=== PATIENT | male | born 1970 | race Caucasian/White ===

== ENCOUNTER 2016-10-24 12:07 | Inpatient (IN) | payer MEDICARE, MEDICAID ==
[~2016-10-24] VITALS: Ht 177.8 cm; Wt 107.1 kg
[2016-10-24] VITALS (14 sets, daily range): BP systolic 131–153; BP diastolic 76–85; PULSE 66–113; RESP 14–20; O2SAT 95–100
[~2016-10-24 12:07] MED LIST: ALBU8.5H2 INHALATION; AMLO5TAB2 PO; CIPR-231 PO; HYDR-4003 PO; LEVO150T5 PO; MORP100T36 PO
[2016-10-24] MEDS ORDERED: 0.9% Sodium Chloride 1,000 ML IV ONE (12:19)
--- NOTE | 2016-10-24 12:49 | ED.REPORT ---
HPI-Rash / Abscess Date of Service Oct 24, 2016 ED Provider: Ayan Puga PA-C Fred is a 45-year-old male who presents with a chief complaint of a left hip abscess. He states he first noticed it 3 days ago as worsened since then. Now he reports is quite painful and that "it feels like my testicles are being strangled." Reports pain and drainage in the thigh. Admits abdominal pain, vomiting, subjective fever. He has a long history of abscesses in this area which have been treated surgically previously in this facility, most recently in June of last year. History of IM heroin use. States he has been clean for 3 years. Patient reports last evening at 1730 yesterday and last drinking at 0200 this morning Nursing Notes Stated Complaint: LEFT THIGH ABSCESS Chief Complaint: Skin Rash/Abscess Nursing Notes Reviewed: Yes Allergies: Coded Allergies: Sulfa (Sulfonamide Antibiotics) (Verified Allergy, Intermediate, Rash, 03/31) STATES BLISTERS ON PENIS codeine (Verified Allergy, Mild, Rash,Itching,, 03/31/16) penicillin G (Verified Allergy, Unknown, Rash, 03/31/16) IN HIS YOUTH dalbavancin (Verified Adverse Reaction, Intermediate, Severe muscle spasms required discontinuation of infusion., 04/30/16) erythromycin base (Verified Adverse Reaction, Mild, Nausea, 03/31/16) Scheduled Amlodipine (Amlodipine) 5 Mg Tablet 5 MG PO DAILY Ciprofloxacin (Cipro) 500 Mg Tablet 750 MG PO BID Levothyroxine (Levothyroxine) 150 Mcg Tablet 150 MG PO DAILY Morphine Sulfate ER (Morphine Sulfate ER) 100 Mg Tablet 100 MG PO BID Scheduled PRN Albuterol HFA (Proair HFA) 8.5 Gm Hfa.aer.ad 2 PUFFS INHALATION Q4H PRN PRN For Shortness of Breath Hydrocodone-Acetaminophen 5-325 mg (Hydrocodone-Acetaminophen 5-325 mg) 1 Each Tablet 1 TABLET PO Q4H PRN PRN For Pain General Time Seen by MD: 12:17 Chief Complaint Abscess Past Medical History Past Medical History Hx IV drug use. Last use Dec 18 2015 Hypothyroid per patient- currently not receiving medication MSRA Reports: Diabetes mellitus Past Surgical History Abscess I&D in OR Reports: Tonsillectomy Smoking History Current Every Day Smoker Social History Alcohol Use: Denies alcohol use Drug Use: In recovery, IV drugs Other Social History: Poor social support, Local resident Ambulatory Status Independent Review of Systems Review of Systems Note: Negative unless stated otherwise in history of present illness Physical Exam General: Well appearing, well developed, well nourished, no acute distress. Foul smell. Head: Atraumatic, normocephalic. Eyes: No scleral icterus or injection. No discharge. Vision grossly intact. ENT: Voice clear, hearing grossly intact. Respiratory: Regular rate and rhythm. Breath sounds present, clear to auscultation and equal bilaterally. No respiratory distress. No increased work of breathing, speaks in complete sentences. Cardiovascular: Tachycardic with regular rhythm, without murmur, gallop or rub. No pedal edema. Gastrointestinal: Abdomen flat and non-tender without guarding or rebound. Bowel sounds normoactive. Skin: Large, draining abscess on left hip, 8 cm area of induration and tenderness on the right anterior distal thigh. 10 cm area of redness, tenderness and induration on right hip. 6 and regular area of redness tenderness and induration on the lateral left arm. 6 cm area of redness, tenderness, and induration on the lateral right arm. Bandaged, recently drained abscesses bilateral shoulders. Left leg: Swollen, red, warm from hip to foot. DP pulse 2+. Brisk capillary refill. Right leg: Swollen, red, warm from knee to foot. DP pulse 2+ Neurological: Grossly nonfocal. Psychological: Alert and oriented. Speech appropriate, linear and logical. Behavior appropriate. Initial Vital Signs Vital Signs (First) Date Time Temp Pulse Resp B/P Pulse Ox O2 Delivery O2 Flow Rate FiO2 10/24/16 12:10 35.8 113 20 137/82 100 Room Air Initial VS: Vital signs abnormal (tachycardia) Interpretation & Diagnostics Lab Results Interpretation Result Diagram: 10/24/16 1310 10/24/16 1310 Test 10/24/16 13:10 White Blood Count 15.7th/mm3 (3.8-10.1) Red Blood Count 3.93mil/mm3 (4.40-5.80) Hemoglobin 9.8g/dL (13.8-17.2) Hematocrit 31.4% (41.0-50.0) Mean Corpuscular Volume 79.9fL (81-100) Mean Corpuscular Hemoglobin 24.9pg (27.0-35.0) Mean Corpuscular Hemoglobin Concent 31.2% (32.0-37.0) Red Cell Distribution Width 15.5% (12.3-15.4) Platelet Count 215bil/L (150-400) Neutrophils (%) (Auto) 83.5% (40-74) Lymphocytes (%) (Auto) 9.9% (14-46) Monocytes (%) (Auto) 4.4% (4-12) Eosinophils (%) (Auto) 0.9% (0-5) Basophils (%) (Auto) 0.3% (0-3) Erythrocyte Sedimentation Rate 68mm/hr (0-15) Sodium Level 132mEq/L (134-144) Potassium Level 4.6mEq/L (3.5-5.2) Chloride Level 93mEq/L (97-108) Carbon Dioxide Level 24mmol/L (18-29) Blood Urea Nitrogen 13mg/dL (6-24) Creatinine 0.62mg/dL (0.76-1.27) Estimat Glomerular Filtration Rate 148mL/min (>59) Glucose Level 222mg/dL (60-99) Lactic Acid Level 1.5mmol/L (0.4-2.0) Calcium Level 9.0mg/dL (8.5-10.1) Total Bilirubin 0.2mg/dL (0.0-1.2) Aspartate Amino Transf (AST/SGOT) 9U/L (0-50) Alanine Aminotransferase (ALT/SGPT) 6U/L (0-44) Alkaline Phosphatase 81U/L (25-150) C-Reactive Protein 15.4mg/dL (0.0-0.5) Total Protein 6.6g/dL (6.4-8.4) Albumin 3.6g/dL (3.4-5.0) Re-Eval/Medical Decision Med Decision/Clinical Course Attending note: I saw and evaluated this patient. I agree with the documentation of our physician assistant editor. Patient has extensive left thigh cellulitis with probable underlying abscess and will require broad-spectrum antibiotics, admission and probable debridement in the OR. RUSH MDM: 45-year-old male with history of IM drug use and extensive abscesses presents with a left hip abscess. His first 3 days ago and has been worsening since then. Is quite painful now and draining purulent fluid. He also has many areas of tender induration on both legs and arms. Tachycardia is noted. Labs, blood cultures are drawn. IV is started and 1 L given. Patient is placed on vancomycin, clindamycin. Meropenem was added after review of previous culture results. CBC reveals leukocytosis with left shift as well as anemia. Lactic acid normal , ESR and CRP are elevated. Consulted with Dr. Godwin, who met with and examine the patient and agrees to take the patient to the OR for debridement. Asks that we admit under hospitalist service. Discussed the case with Dr. Lindquist, who accepted the patient. Consultation #1: Referral / Consult Name: Tal Godwin MD Consulted With: Surgeon Call Returned at: 13:13 Supervisor Accounts Receivable: Will see patient Consultation #2: Consulted With: Hospitalist Call Returned at: 15:06 Supervisor Accounts Receivable: Accepts admit Discharge & Departure Impression: Primary Impression: Abscess Additional Impression: Cellulitis Site of cellulitis: unspecified site Qualified Code: L03.90 - Cellulitis, unspecified Disposition: ADMITTED TO HOSPITAL Referrals: Collin Garcia MD (PCP) Attending Statement I have seen and examined the patient. I have reviewed the chart and agree with the documentation as recorded by the Midlevel Provider, including assessment, treatment plan, and disposition. Findings from my exam are included in documentation above. copies to: Collin Garcia MD, Seth PA-C Oct 24, 2016 12:49 George Torre DO Oct 24, 2016 14:57
[2016-10-24] MEDS ORDERED: Meropenem Inj 1,000 MG in 0.9% Sodium Chloride 100 ML IV ONE (12:55)
[2016-10-24] MEDS ORDERED: Vancomycin Dose per Pharmacist XX ONE (12:55)
[2016-10-24] MEDS ORDERED: Clindamycin Inj 900 MG in IV Premix 1 EACH IV ONE (12:55)
[2016-10-24] MEDS ORDERED: Ondansetron 2 mg/mL 2 mL Inj IVPUSH PRN ×4 (13:10→18:40)
[2016-10-24] MEDS ORDERED: 0.9% Sodium Chloride 1,000 ML IV SCH (13:10)
[2016-10-24] MEDS ORDERED: Vancomycin Inj 2,000 MG in 0.9% Sodium Chloride 500 ML IV ONE (13:15)
[2016-10-24] MEDS: HYDROmorphone 0.5 mg/0.5 mL iSecure Syringe IVPUSH PRN ×2 (13:25→14:22)
[2016-10-24 13:28] LABS: BASOPHILS % (AUTO) 0.3 % (0-3); EOSINOPHILS % (AUTO) 0.9 % (0-5); MONOCYTES % (AUTO) 4.4 % (4-12); Mean Corpuscular Hemoglobin 24.9 pg (27.0-35.0); Mean Corpuscular Volume 79.9 fL (81-100); NEUTROPHILS % (AUTO) 83.5 % (40-74); Platelet Count 215 bil/L (150-400)
--- NOTE | 2016-10-24 14:57 | DRSVH ---
PROCEDURE: CT LOWER EXTREMITY LEFT WITH CONTRAST INDICATIONS: left hip abscess, leg swelling TECHNIQUE: After the administration of intravenous contrast, 3 mm axial sections acquired of the left thigh, wit h coronal and sagittal reformats. For radiation dose reduction, the following was used: automated e xposure control, adjustment of mA and/or kV according to patient size. COMPARISON: [facility], CT, CT LOWER EXTREMITY LT W CON, 04/26/2016, 12:20. FINDINGS: Image quality: Diagnostic. Bones: There is no acute fracture or dislocation involving the osseous structures of the imaged pelvi s or left femur. Formerly of the proximal left femoral head/neck is suggestive of an old injury. Th ere is prominent joint space narrowing and associated degenerative changes of the femoral acetabular joint. No suspicious osseous lesions or erosions are identified. No periosteal elevation is appreci ated. Degenerative changes of the sacroiliac joints are noted. A subtle lucent lesion involving the right acetabulum is noted anteriorly, which is not adequately characterized on this examination, but demonstrates peripheral sclerosis, suggesting an intraosseous ganglion cyst. Soft tissues: Prominent skin thickening and subcutaneous edema is identified along the antral lateral aspect of the left thigh with edema noted involving the superficial fascia. No definite fluid or ed atif is seen extending into the deep fascial planes. There are areas of soft tissue air noted along t he proximal aspect of the left hip region with an associated collection of fluid that measures at patrice st 3.0 x 1.2 cm (image 33, series 2). Additional lobular structures are evident along the superficia l fascia of the anterolateral proximal left thigh just below this fluid collection, measuring 2.5 x 1 .4 cm (image 49, series 2). No definite intramuscular fluid collections are present. Incidental note is made of air and contrast contained within the right common femoral and external il iac vein, which probably is related to injection of contrast through the right lower extremity and cl inical correlation is recommended. Multiple enlarged lymph nodes are noted on the left iliac chain and in the left inguinal region with the largest lymph node measuring up to approximately 2.5 x 1.8 cm. Moderate residual stool is seen w ithin the pelvis. The imaged portions of the appendix are normal in size. No free fluid or loculate d fluid collection is seen within the intraperitoneal cavity. IMPRESSION: 1. Extensive subcutaneous and superficial fascial edema of the anterolateral aspect of the left thig h is suggestive of cellulitis. Small loculated fluid collections within the subcutaneous tissues are noted overlying the left hip region and upper thigh region, suggesting developing abscesses. No mus deepthi abscesses are evident. 2. No definite edema, air, or fluid is seen within the deep fascial planes to suggest fasciitis. Ho wever, correlation with clinical findings is recommended. 3. Enlarged left inguinal and iliac lymph nodes are likely reactive. Dictated by: Roberto Carlos Madrid M.D. on 10/24/2016 at 13:36 Approved by: Roberto Carlos Madrid M.D. on 10/24/2016 at 13:56
[2016-10-24] MEDS ORDERED: MetoCLOpramide 5 mg/mL 2 mL Inj ONE (15:02)
[2016-10-24] MEDS ORDERED: Propofol 10,000 mCg/mL 20 mL Inj ONE (15:02)
[2016-10-24] MEDS ORDERED: HYDROmorphone 2 mg/mL Inj ONE (15:02)
[2016-10-24] MEDS ORDERED: Ondansetron 2 mg/mL 2 mL Inj ONE (15:02)
[2016-10-24] MEDS ORDERED: fentaNYL-PF 50 mCg/mL 2 mL Inj ONE (15:02)
[2016-10-24] MEDS ORDERED: Alum-Mag Hydrox-Simeth 30 mL Suspension PO PRN ×2 (15:05→17:35)
--- NOTE | 2016-10-24 15:15 | CONS ---
[address] [address] CONSULTATION REPORT PATIENT: SINTIA OJEDA : 1970 MR#: [id number] ADMIT: 10/24/2016 JOB ID: [id number] DATE OF SERVICE: 10/24/2016 CONSULTATION REQUESTED BY: Ayan Puga PA-C. Patient seen for decision to operate. HISTORY OF PRESENT ILLNESS: A 45-year-old man with a stated past history of parenteral heroin abuse. States he is no longer using it but returns frequently with soft tissue abscesses. I was asked to see him for a left thigh and left upper extremity abscess. Again, the patient states that he stopped using heroin three years ago. He came to the emergency department because of increasing pain, primarily in his left thigh, but also admitted to pain in his left shoulder. PAST MEDICAL HISTORY: History of parenteral heroin use, question hypothyroid, question MRSA, question diabetes. REVIEW OF SYSTEMS: He changed his story, but at the last, he said he ate a few bites of a breakfast burrito at around 9:30 this morning. Also has had nausea, vomiting, and states he had a fever. PHYSICAL EXAMINATION: Appears older than stated age, a little somnolent. BMI 31.6, temperature 35.8, brachial blood pressure 137/82, pulse 113, respiratory rate 20, O2 sat is 100%. HEENT: PERRLA, EOMI. No scleral icterus. Neck: No appreciable masses. Lungs clear. Cardiac exam: Regular rhythm. No murmurs or gallops appreciated. Left upper extremity has erythema and an abscess on his left proximal lateral upper arm. Left lower extremity: Significant cellulitis and lateral proximal abscess. It is difficult to examine him because of pain. A CT scan has been ordered. LABORATORY RESULTS: White blood cell count 15.7, hematocrit 31.4, platelet count 215,000. Sodium 132, potassium 4.6, chloride 93. Total CO2 24, creatinine 0.62. Glucose 222. Lactic acid 1.5. Liver function tests normal. C. reactive protein 15.4. IMPRESSION: 1. Left upper extremity abscess. 2. Left lower extremity abscess. 3. History of parenteral drug abuse. 4. Diabetes. PLAN: I discussed options with the patient. He is scheduled for a CT scan, which I think will be helpful, but I also have scheduled him and obtained informed consent and written consent to take him to the operating room between 5:30 in 6:00 and incise and drain both abscesses. Cultures will be obtained. The patient has been through this before and definitely understands what is in front of them. He he has numerous emergency admissions for abscesses dating back to 2010.
[2016-10-24] MEDS ORDERED: HYDR-3740 PO (16:17)
--- NOTE | 2016-10-24 16:55 | NUR ---
Admit Pt admitted from ED to OSC unit, 1004 at 1555. Arrived via gurney and 4 person slide board transfer to bed. Oriented and answering appropriately, groggy, arousable but had difficulty obtaining past medical hx d/t his inability to stay awake for interview. Pain present, asking for medications. Pt with IV at Right foot with Vancomycin infusing, Moves upper extremities - limited to BLE L>R d/t abscess. Dressing present to left and right deltoid, 3-4mm round with minimal weeping - pt stated that he drained them himself. Left upper ant/lateral thigh swollen, tight, red and painful, lateral open and drainage abscess wound - purulent drainage. Attempted to place abd pad over top to catch drainage - too painful. Chucks pad underneath with glove filled with water to offsite weight on left side. Pt refused to turn d/t pain to both, remove sheets gurney sheets from underneath patient and have posterior skin assessment performed. IV sharps container removed. Personal belongings locked up in closet by security. Behavior contract in room but d/t pt inable to stay awake did not go over with pt. Pt with hx MRSA, MRSA swab sent and precautions placed. Med Rec completed per pt memory. Call light in reach. Sleepy. Awaiting surgery. Care continues.
[2016-10-24] MEDS ORDERED: Polyethylene Glycol (PEG) 17 Gm Powder PO PRN (17:35)
[2016-10-24] MEDS: Vancomycin Dose per Pharmacist XX SCH (17:40)
--- NOTE | 2016-10-24 18:26 | NUR ---
OR OR called and received report on pt prior to pickup. Vancomycin completed - IV SL to Right foot. Pt sleeping but able to arouse. Per ED report, consent signed - but no signed paperwork noted in chart. Pt last meal at 1000 per pt, remained NPO since arrival to unit. Await OR pickup. Addendum: 10/24/16 at 1911 by ROYAL GARRETT RN pt transported up to OR via bed at 1855
--- NOTE | 2016-10-24 18:35 | PCM.HPANE ---
Patient Data Surgeon Admitting Provider:Daija Márquez MD Attending Provider:Daija Márquez MD Primary Care Physician:Collin Garcia MD Other Provider: Reason for Visit Sepsis, Left Thigh Abscess Ht/WT & BMI Height (Feet): 5 Height (Inches): 10 Weight (Kilograms): 100 Body Mass Index Allergies Coded Allergies: Sulfa (Sulfonamide Antibiotics) (Verified Allergy, Intermediate, Rash, 03/31) STATES BLISTERS ON PENIS codeine (Verified Allergy, Mild, Rash,Itching,, 03/31/16) penicillin G (Verified Allergy, Unknown, Rash, 03/31/16) IN HIS YOUTH dalbavancin (Verified Adverse Reaction, Intermediate, Severe muscle spasms required discontinuation of infusion., 04/30/16) erythromycin base (Verified Adverse Reaction, Mild, Nausea, 03/31/16) Past Anesthesia History Anesthesia History: Denies:: Anesthesia Reactions, Fam Anesthesia Reaction, Fam Malignant Hypertherm, Malignant Hyperthermia Diabetes History Hx Diabetes?: Yes (prediabetic) MRSA MRSA: Yes Medications Active Scripts Amlodipine 5 Mg Tablet5 Mg PO DAILY 30 Days Prov:Guy Herrera DO 06/29/16 Reported Medications Hydrocodone-Acetaminophen 10-325 mg 1 Each Tablet1 Tablet PO Q6H PRN For Pain Ref 0 10/24/16 Albuterol HFA (Proair HFA)8.5 Gm Hfa.aer.ad2 Puffs INHALATION Q4H PRN For Shortness of Breath #1 INHALER 03/02/16 Levothyroxine 150 Mcg [id number] Mcg PO DAILY #90 03/02/16 Morphine Sulfate ER 100 Mg [id number] Mg PO BID #60 03/02/16 Discontinued Reported Medications Hydrocodone-Acetaminophen 5-325 mg 1 Each Tablet1 Tablet PO Q4H PRN For Pain 06/25/16 Discontinued Scripts Ciprofloxacin (Cipro)500 Mg [id number] Mg PO BID 10 Days Ref 0 Prov:Guy Herrera DO 06/29/16 History History of ENT Problems?: No Hx of Heart Problems?: Yes Cardiovascular History: Positive for:: Hypertension Denies:: Cardiac Surgery Chest Pain Congestive Heart Failure Edema Heart Murmur Irregular Heartbeat Pacemaker Thrombophlebitis Hx of Respiratory Problem?: Yes Respiratory History: Positive for:: Asthma Pneumonia Denies:: COPD Chest Surgery Dyspnea Emphysema Hemoptysis Tuberculosis Hx Neurologic Problems?: No Neurological History: Positive for:: Headaches Denies:: Alzheimer's Disease CVA Dementia Dizziness Parkinson's Disease Seizures Hx of GI Problems?: No Gastrointestinal History: Denies:: Diverticulitis Gastroesphageal Reflux Gastrointestinal Bleeding Heartburn Hepatitis Hiatal Hernia Rectal Bleeding Hx of Problems?: No Genitourinary History: Denies:: HX of Hemodialysis Kidney Stones Urinary Tract Infection HX of Peritoneal Dialysis: No Male Hx: Denies:: Prostate Problems Scrotal Mass Testicular Surgery Hx Musculoskeletal Problems?: No Musculoskeletal History: Denies:: Back Injury Joint Replacement Musculoskeletal Trauma Hx of Psycho/Social Problems?: Yes Psycho Social History: Positive for:: Anxiety Denies:: Bipolar Disorder Hx Depression Suicide Attempt Hx Surgeries?: Yes (tonsilectomy) Hx Any Other Health Problems?: Yes Other History: Positive for:: Hospitalization (I&D of abscesses) Thyroid Disease Denies:: Cancer Endocrine Disease History Blood Transfusions: Positive for:: Accept Blood Products? Denies:: Blood Transfuse Reaction Blood Transfusions Hx Diabetes: Yes (prediabetic) Hx Alcohol Use: NoHx Substance Use: Yes (Heroin/Amphetamines/Oxy/Meth/Opiates) Smoking Status: Current Every Day Smoker Have You Smoked inLast 12 mo: YesApprox How Many Cigarettes/day: 10 Stop/Bang Treated for Sleep Apnea?: No Do You Have a CPAP Machine?: No S-Snoring: Do You Snore Loudly: Yes T-Tired: feel tired, fatigued: No O-Obsered: Observed not breath: No P-Blood Pressure: treated: Yes B- Body Mass Index > 35 kg/m2: Yes A- Age over 50: No N- Neck Large Circumference: No G- Gender Male: Yes QASIM Total Score: 5 QASIM Risk Assessment: Low Risk, <3 Yes Risk Assessment Category Category 1A: Patient has history of documented sleep apnea, and HAS NOT received any narcotic, sedative or anesthesia administration during this stay. Category 1B: Patient has history of documented sleep apnea, and HAS received any narcotic , sedative or anesthesia administration during this stay Category 2: Patient has SUSPECTED Obstructive Sleep Apnea, and HAS received any narcotic , sedative or anesthesia administration during this stay. Category 3: Patient has SUSPECTED Obstructive Sleep Apnea and HAS NOT received narcotic, sedative or anesthesia administration during this stay. Category 4: Outpatient in Procedural Areas with known sleep apnea or who screen positive for High Risk via the STOP/BANG questionnaire. Exam Exam Vital Signs Vital Signs Date Time Temp Pulse Resp B/P Pulse Ox O2 Delivery O2 Flow Rate FiO2 10/24/16 16:16 36.8 93 19 131/76 100 Room Air 10/24/16 15:47 36.8 87 18 132/78 100 Room Air 10/24/16 14:26 36.7 87 18 132/78 100 Room Air 10/24/16 12:10 35.8 113 20 137/82 100 Room Air General Appearance: Oriented X3 HEENT/AIRWAY: MP 2 Lungs: Normal Air Movement Heart: Regular Rate/Rhythm Meds/Labs/Diagnostics Admission Meds Current Medications Sodium Chloride (Normal Saline) 1,000 ml @ 0 mls/hr Q0M ONCE IV Last administered on 10/24/16 13:12; Start 10/24/16 at 12:19; Stop 10/24/16 at 12:23; Status DC Pharmacy Consult 1 ea 1 ea ONCE ONCE XX Last administered on 10/24/16 12:55; Start 10/24/16 at 12:55; Stop 10/24/16 at 13:12; Status DC Clindamycin Phosphate/ Dextrose 900 mg/ Premix 50 ml @ 100 mls/hr ONCE ONCE IV Last administered on 10/24/16 13:24; Start 10/24/16 at 12:55; Stop 10/24/16 at 13:24; Status DC Meropenem 1000 mg/ Sodium Chloride 100 ml @ 200 mls/hr ONCE ONCE IV Last administered on 10/24/16 12:55; Start 10/24/16 at 12:55; Stop 10/24/16 at 13:24; Status DC Vancomycin HCl/ Sodium Chloride (Vancocin Inj/ Normal Saline) 500 ml @ 250 mls/ hr ONCE ONCE IV Last administered on 10/24/16 15:40; Start 10/24/16 at 13:15; Stop 10/24/16 at 15:14; Status DC Labs Test 10/24/16 13:10 White Blood Count 15.7th/mm3 (3.8-10.1) Red Blood Count 3.93mil/mm3 (4.40-5.80) Hemoglobin 9.8g/dL (13.8-17.2) Hematocrit 31.4% (41.0-50.0) Mean Corpuscular Volume 79.9fL (81-100) Mean Corpuscular Hemoglobin 24.9pg (27.0-35.0) Mean Corpuscular Hemoglobin Concent 31.2% (32.0-37.0) Red Cell Distribution Width 15.5% (12.3-15.4) Platelet Count 215bil/L (150-400) Neutrophils (%) (Auto) 83.5% (40-74) Lymphocytes (%) (Auto) 9.9% (14-46) Monocytes (%) (Auto) 4.4% (4-12) Eosinophils (%) (Auto) 0.9% (0-5) Basophils (%) (Auto) 0.3% (0-3) Erythrocyte Sedimentation Rate 68mm/hr (0-15) Sodium Level 132mEq/L (134-144) Potassium Level 4.6mEq/L (3.5-5.2) Chloride Level 93mEq/L (97-108) Carbon Dioxide Level 24mmol/L (18-29) Blood Urea Nitrogen 13mg/dL (6-24) Creatinine 0.62mg/dL (0.76-1.27) Estimat Glomerular Filtration Rate 148mL/min (>59) Glucose Level 222mg/dL (60-99) Lactic Acid Level 1.5mmol/L (0.4-2.0) Calcium Level 9.0mg/dL (8.5-10.1) Total Bilirubin 0.2mg/dL (0.0-1.2) Aspartate Amino Transf (AST/SGOT) 9U/L (0-50) Alanine Aminotransferase (ALT/SGPT) 6U/L (0-44) Alkaline Phosphatase 81U/L (25-150) C-Reactive Protein 15.4mg/dL (0.0-0.5) Total Protein 6.6g/dL (6.4-8.4) Albumin 3.6g/dL (3.4-5.0) Thyroid Stimulating Hormone (TSH) 5.640uIU/mL (0.450-4.500) Free Thyroxine 1.01ng/dL (0.82-1.77) Plan Impression Patient chart reviewed, patient interviewed and anesthestic plan with risks, benefits, and alternatives discussed, and informed consent obtained. NPO Status: 0800 ASA Physical Status: ASA3 Severe Disease Anesthetic Plan: GA Bene/Risks/Altern/Consents: Yes HP Complete Prior to Induction: Yes Baljit Kirkland MD Oct 24, 2016 18:35
[2016-10-24] MEDS ORDERED: Lactated Ringer's 500 ML IV PRN (18:36)
[2016-10-24] MEDS ORDERED: Lactated Ringer's 1,000 ML IV SCH (18:36)
--- NOTE | 2016-10-24 18:36 | HP ---
[address] [address] HISTORY AND PHYSICAL PATIENT: SINTIA OJEDA : 1970 MR#: [id number] ADMIT: 10/24/2016 JOB ID: [id number] PRIMARY CARE PROVIDER: Dr. Collin Garcia in [place]. Patient admitted from ED, inpatient status, Blue Team. CHIEF COMPLAINT: Pain, redness, left thigh, for three days. HISTORY OF PRESENT ILLNESS: This is a 45-year-old male who has recurrent admissions for different abscesses with different organisms in different parts of his body, highly suspicious for ongoing skin popping for narcotics. However, patient denies using any needles for a year or two at this point in time. He was last here in June. He has been doing pretty well but then noticed redness and swelling in his left thigh area starting three days ago which got progressively worse. He also has two areas on both of his upper shoulders/arms area. Presented to the ED. His CAT scan shows developing abscesses in the thigh. No evidence of fasciitis, and Surgery has asked us to admit patient. He has had some fevers. He has pain and again denies any instrumentation injection to those areas. He has had no headache. Denies fevers or diaphoresis. No nausea or diarrhea REVIEW OF SYSTEMS: Complete review of systems done, all pertinent positives in HPI above, rest of review of systems are negative. PAST MEDICAL HISTORY: 1. IV drug abuse, which he now denies current. 2. Hypothyroidism. 3. Prediabetes. 4. Chronic pain. 5. Hypertension. 6. Asthma/COPD. MEDICATIONS: Include: 1. ProAir two puffs q.4 p.r.n. 2. Hydrocodone 10/325 p.r.n. 3. Morphine sulfate [address] Garcia apparently prescribes. 4. Levothyroxine 150 mcg daily. ALLERGIES: Include 1. SULFA. 2. CODEINE. 3. PENICILLIN G. 4. DALBAVANCIN. 5. ERYTHROMYCIN. SOCIAL HISTORY: The patient says he stopped using IV heroin in November 2015. Denies alcohol. He does smoke. He uses cocaine and meth and marijuana also in the past. Smokes every day. FAMILY HISTORY: Mother with heart and kidney disease. Rest of review of the family is unknown at this time. PHYSICAL EXAMINATION: Afebrile, heart rate 93, blood pressure 130/75. Skin shows a swollen left thigh, with some redness extending just below the belt line to above the knee laterally. Just below the greater trochanteric area, there is a black area, 1 cm across, with some brownish, purulent-appearing discharge. On both upper arms, over the deltoid muscle area, he has two small infections, a little bit of redness also associated with a 4 mm scab, both draining a little bit of purulent-appearing material. This is on both arms. His eyes are PERRLA. EOM intact. Mouth shows adequate hydration. His cardiac exam is regular with no overt murmur. Lungs: A few scattered wheezes but otherwise clear. Abdomen soft, nonacute, benign. Extremities showed no edema. DIAGNOSES: 1. Acute left thigh abscess. Present on admission. Active. CAT scan showed no evidence of fasciitis. Surgery is already seeing patient. Will continue with meropenem and IV vancomycin and obtain an ID consult, also. We will be treating all three wounds, both arms and legs. Repeat CBC, diff tomorrow. 2. Pain management. This will be with a HOUSECLEANER, opioid tolerant patient. 3. Possible ongoing IV drug abuse, present on admission suspect. Will talk to Social Service. 4. Chronic hypothyroidism, present on admission. Stable. Continue levothyroxine. Get thyroid function tests. 5. Chronic hypertension present on admission. Stable. Continue Norvasc. Monitor. 6. Chronic pain present on admission. Stable. Will be holding patient's oral morphine while he is on a HOUSECLEANER. 7. Tobacco use disorder, present on admission, active. Provide a nicotine patch. Patient was counseled to quit smoking. CODE STATUS: FULL CODE. Code sheet filled out.
[2016-10-24] MEDS ORDERED: EPHEDrine Sulfate 50 mg/mL Inj IVPUSH PRN (18:40)
[2016-10-24] MEDS ORDERED: Phenylephrine 10,000 mCg/mL Inj IVPUSH PRN (18:40)
[2016-10-24] MEDS ORDERED: MetoCLOpramide 5 mg/mL 2 mL Inj IVPUSH PRN (18:40)
[2016-10-24] MEDS ORDERED: Dexamethasone 4 mg/mL Inj IVPUSH PRN (18:40)
[2016-10-24] MEDS ORDERED: Lactated Ringer's 1,000 ML IV ONE (18:46)
[2016-10-24] MEDS ORDERED: Albuterol 2.5 mg/3 mL Inhalation Solution NEB PRN (20:00)
[2016-10-24] MEDS: HYDROmorphone 1 mg/mL Inj IVPUSH PRN ×2 (20:00→20:04)
[2016-10-24] MEDS: fentaNYL-PF 50 mCg/mL 2 mL Inj IVPUSH PRN ×2 (20:01→20:07)
--- NOTE | 2016-10-24 20:01 | PCM.CONPHA ---
Subjective Date of Service: Oct 24, 2016 VANCOMYCIN START Reason for Pharmacy Consult: Vancomycin Dosing Objective Vital Signs Date Time Temp Pulse Resp B/P Pulse Ox O2 Delivery O2 Flow Rate FiO2 10/24/16 19:36 37 89 15 131/81 100 Simple Mask 8 10/24/16 16:16 36.8 93 19 131/76 100 Room Air 10/24/16 15:47 36.8 87 18 132/78 100 Room Air 10/24/16 14:26 36.7 87 18 132/78 100 Room Air 10/24/16 12:10 35.8 113 20 137/82 100 Room Air Weight (Kilograms): 107.100 Height (Feet): 5 Height (Inches): 10.00 Test 10/24/16 13:10 White Blood Count 15.7th/mm3 (3.8-10.1) Red Blood Count 3.93mil/mm3 (4.40-5.80) Hemoglobin 9.8g/dL (13.8-17.2) Hematocrit 31.4% (41.0-50.0) Mean Corpuscular Volume 79.9fL (81-100) Mean Corpuscular Hemoglobin 24.9pg (27.0-35.0) Mean Corpuscular Hemoglobin Concent 31.2% (32.0-37.0) Red Cell Distribution Width 15.5% (12.3-15.4) Platelet Count 215bil/L (150-400) Neutrophils (%) (Auto) 83.5% (40-74) Lymphocytes (%) (Auto) 9.9% (14-46) Monocytes (%) (Auto) 4.4% (4-12) Eosinophils (%) (Auto) 0.9% (0-5) Basophils (%) (Auto) 0.3% (0-3) Erythrocyte Sedimentation Rate 68mm/hr (0-15) Sodium Level 132mEq/L (134-144) Potassium Level 4.6mEq/L (3.5-5.2) Chloride Level 93mEq/L (97-108) Carbon Dioxide Level 24mmol/L (18-29) Blood Urea Nitrogen 13mg/dL (6-24) Creatinine 0.62mg/dL (0.76-1.27) Estimat Glomerular Filtration Rate 148mL/min (>59) Glucose Level 222mg/dL (60-99) Lactic Acid Level 1.5mmol/L (0.4-2.0) Calcium Level 9.0mg/dL (8.5-10.1) Total Bilirubin 0.2mg/dL (0.0-1.2) Aspartate Amino Transf (AST/SGOT) 9U/L (0-50) Alanine Aminotransferase (ALT/SGPT) 6U/L (0-44) Alkaline Phosphatase 81U/L (25-150) C-Reactive Protein 15.4mg/dL (0.0-0.5) Total Protein 6.6g/dL (6.4-8.4) Albumin 3.6g/dL (3.4-5.0) Procalcitonin 0.11ng/mL (0.00-0.08) Thyroid Stimulating Hormone (TSH) 5.640uIU/mL (0.450-4.500) Free Thyroxine 1.01ng/dL (0.82-1.77) Assessment/Plan Assessment/Plan A/ PT received Vancomycin 2000mg IV x1 in ED at 1540 Previous Vancomycin dosing of 1750mg IV q12h (Jun 2016) had trough of 19.8 concurrent meropenem 1000mg IV Q8H ID consult ordered P/ Based on previous vancomycin dosing and trough will start at Vancomycin 1500mg iv Q12h with first dose due approx 12hr after load 10/25 0400 then a trough before the 3th dose on 10/26 0330. Pharmacy to monitor and adjust as necessary. Thanks you for the consultation Vivek Cuenca [facility] Oct 24, 2016 20:01
[2016-10-24] MEDS: Morphine PCA 1 mg/mL 30 mL Inj IV PRN (20:43)
[2016-10-24] MEDS: 0.9% Sodium Chloride 1,000 ML IV SCH (20:47)
--- NOTE | 2016-10-24 20:53 | OP ---
[address] [address] OPERATIVE REPORT PATIENT: SINTIA OJEDA : 1970 MR#: [id number] ADMIT: 10/24/2016 JOB ID: [id number] DATE OF SURGERY: 10/24/2016 PREOPERATIVE DIAGNOSIS(ES): 1. Large left lateral thigh abscess. 2. Left upper arm abscess. 3. Right thigh abscess. POSTOPERATIVE DIAGNOSIS(ES): 1. Large left lateral thigh abscess. 2. Left upper arm abscess. 3. Right thigh abscess. PROCEDURE: 1. Incision and drainage, large left thigh abscess, complex. 2. Incision and drainage, left upper arm abscess, complex. 3. Incision and drainage, right thigh abscess, complex. SURGEON: Tal Godwin MD. TIMING ADJUSTER: None. INDICATIONS: A 45-year-old man who denies current use of heroin but has a known past history. He has had multiple admissions here for subcutaneous abscesses consistent with ongoing heroin use. He presented to the emergency department again today with multiple abscesses. Those currently identified are left thigh, right thigh and left upper arm. After discussing options with the patient, it was elected to proceed with incision and drainage. FINDINGS: The largest abscess was in his left thigh. It had probably 20 cc of pus in it. There was no necrotic tissue. The pus was cultured. He also had abscesses on his left upper arm and right thigh both of which contained about 10 cc of pus. I cultured the left upper arm, but I did not culture the right upper arm. DESCRIPTION OF PROCEDURE: At the beginning and end of the operation, the SCOAP checklist was completed. An LMA anesthetic was induced using ChloraPrep. All of the three abscess sites were prepped. Sterile square off dressings were placed. The left upper arm abscess was drained 1st. With a searching needle, I encountered a pocket of pus. He had two previous vertical incisions over the same area. I selected the posterior one and opened it sharply, entered the abscess, cultured it, completely broke up the loculations and irrigated it. I then opened the left thigh abscess which had already spontaneously drained. It was significantly larger, broke up loculations, cultured it, irrigated it. I packed both those wounds with saline-moistened Kerlix. I then finally went to the right thigh abscess which was about the size of the left upper arm abscess. It was also located with a searching needle, opened vertically, the loculations broken up, irrigated but, as stated above, I did not culture that one. After placing saline-moistened Kerlix in each wound, they were covered by ABDs and then on the two thigh abscess a large bandage-sized tape and panties and then on his left upper arm left an ABD and Kerlix Estimated blood loss was 20 cc. There were no apparent complications. The final sponge, needle and instrument counts were announced as correct, and he was returned to Recovery in stable condition.
[2016-10-24] MEDS: Meropenem Inj 1,000 MG in 0.9% Sodium Chloride 100 ML IV SCH (20:57)
[2016-10-25] VITALS (10 sets, daily range): BP systolic 131–154; BP diastolic 76–83; PULSE 68–92; RESP 16–20; O2SAT 97–100
[2016-10-25] MEDS: Heparin 5,000 Unit/mL Inj SUBQ SCH ×3 (00:38→17:18)
--- NOTE | 2016-10-25 00:40 | NUR ---
Arrival from PACU to Room 1004 Patient arrived from PACU to room 1004 at 2027 via hospital bed accompanied by ELADIO Bedoya. GINAS. Pain states pain 10/10. PHYSICS INSTRUCTOR morphine ordered and administered. Patient is passive with assessment questions. Call light is within reach. Care continues.
[2016-10-25] MEDS: 0.9% Sodium Chloride 1,000 ML IV SCH ×3 (00:44→23:01)
[2016-10-25] MEDS: Morphine PCA 1 mg/mL 30 mL Inj IV PRN ×2 (02:10→06:48)
[2016-10-25] MEDS ORDERED: Vancomycin Inj 1,500 MG in 0.9% Sodium Chloride 500 ML IV SCH (04:00)
[2016-10-25] MEDS: Meropenem Inj 1,000 MG in 0.9% Sodium Chloride 100 ML IV SCH (04:51)
[2016-10-25 06:04] LABS: BASOPHILS % (AUTO) 0.4 % (0-3); EOSINOPHILS % (AUTO) 1.2 % (0-5); MONOCYTES % (AUTO) 4.5 % (4-12); Mean Corpuscular Hemoglobin 24.7 pg (27.0-35.0); NEUTROPHILS % (AUTO) 83.1 % (40-74); Platelet Count 184 bil/L (150-400)
[2016-10-25] MEDS: Vancomycin Dose per Pharmacist XX SCH (08:30)
--- NOTE | 2016-10-25 09:27 | PCM.PNMED ---
Subjective Date of Service Oct 25, 2016 Subjective pt c/o pain from surgical site, otherwise well, denied cough, sputum, SOB Exam Vital Signs Vital Sign - Last Date Time Temp Pulse Resp B/P Pulse Ox O2 Delivery O2 Flow Rate FiO2 10/25/16 09:11 68 10/25/16 09:07 36.6 16 147/80 97 Room Air 10/24/16 19:50 8 Intake and Output 10/24/16 10/24/16 10/25/16 Cumulative From/Thru 15:00 23:00 07:00 10/24/16 12:10 - 10/25/16 05:41 Intake Total 1000 ml 800 ml 892 ml 2692 ml Output Total 500 ml 500 ml Balance 1000 ml 300 ml 892 ml 2192 ml IV Total 1000 ml 800 ml 892 ml 2692 ml Output Urine Total 500 ml 500 ml Exam NAD, comfortably laying down on the bed no JVD, MMM, no LAD RRR, nl s1, s2 no mrg CTAB, no w,c S,ND,NT,normoactive BS+ warm, no edema, pulses 2/2 sterilely dressed on bilateral lateral thigh, LUE IVs and Medications Medications Reviewed: Medications were reviewed in detail Lab and Diagnostics Result Diagram: 10/25/16 0545 10/25/16 0545 Assessment & Plan acute, active 1. multiple abscess on bilateral thigh, left upper arm in the setting of IM heroin use,Present on admission. Active. CAT scan showed no evidence of fasciitis, underwent surgical I&D 10/24 extensively. -continue meropenem and IV vancomycin, await ID consult -pain control with SKELP PROCESSOR for now, will chg to prn dosing chronic, stable #Polysubstance abuse, opioid, tobacco, POA, nicotine patch, will admitting counselor again regarding cessation once pain is more controlled prior to d/c, appreciate JAVY he, caryl. #Chronic hypothyroidism, present on admission. Stable. Continue levothyroxine. #Chronic hypertension present on admission. Stable. Continue Norvasc. Monitor. dvt ppx:HSQ q8h diet: regular dispo: likely 3-4 more days Full code Time spent 35min Aida Muñoz MD Oct 25, 2016 09:27
--- NOTE | 2016-10-25 10:19 | PCM.ANEP1 ---
Post Anesthesia Phase 1 PACU Phase 1 Assessment Date of Service: Oct 24, 2016 Vital Signs Vital Signs Date Time Temp Pulse Resp B/P Pulse Ox O2 Delivery O2 Flow Rate FiO2 10/25/16 09:11 68 10/25/16 09:07 36.6 92 16 147/80 97 Room Air 10/25/16 09:03 16 97 10/25/16 05:10 37.1 86 18 154/81 100 Room Air 10/25/16 04:57 20 98 Anesthetic Administered: GA Level of Alertness: Sleepy, easy to arouse PATEL's with Equal Strength: Yes Pain: Yes Pain Scale Score: 7 Lungs: Normal Air Movement Baljit Kirkland MD Oct 25, 2016 10:19
--- NOTE | 2016-10-25 10:19 | PCM.ANEP2 ---
Post Anesthesia Evaluation ASA/CMS Post Anesthesia VS in Patient's Normal Range?: Yes Resp Stable; Airway Patent?: Yes CV Function & Hydration Stable: Yes Mental Status Recovered?: Yes Pain control Satisfactory?: Yes N/V Control Satisfactory?: Yes Baljit Kirkland MD Oct 25, 2016 10:19
[2016-10-25] MEDS: oxyCODONE-Acetamin 5-325 mg Tablet PO PRN ×3 (10:50→22:24)
[2016-10-25] MEDS: Morphine ER 100 mg (MS Contin) Tablet PO SCH ×2 (11:30→20:14)
--- NOTE | 2016-10-25 12:21 | NUR ---
Wound Care 45 yo male s/p I&D of right thigh, left upper arm and left thigh abscesses, Patient seen at bedside today for dressing changes Left upper arm measures 4 cm L x 0.5 cm W x 1.5 cm D. Left thigh measures 5.5 cm L x 1 cm W x 1.5 cm D. Right thigh measures 3 cm L x 0.4 cm W x 1.5 cm D. Wounds were irrigated with saline, cleaned with gauze and repacked with saline moist gauze and covered with ABD pad. These can be changed by nursing daily.
[2016-10-25] MEDS ORDERED: 0.9% Sodium Chloride 250 ML ONE (12:29)
[2016-10-25] MEDS: DAPTOMYCIN IV SCH (13:30)
[2016-10-25] MEDS: SODIUM CHLORIDE 0.9% IV SCH (13:30)
--- NOTE | 2016-10-25 14:37 | CONS ---
[address] [address] CONSULTATION REPORT PATIENT: SINTIA OJEDA : 1970 MR#: [id number] ADMIT: 10/24/2016 JOB ID: [id number] DATE OF SERVICE: 10/25/2016 INFECTIOUS DISEASE CONSULTATION: REASON FOR CONSULT: Soft tissue abscesses involving the left upper arm and both thighs. I thank Dr. Muñoz for this timely consult. HISTORY OF PRESENT ILLNESS: The patient is a 45-year-old gentleman who is extremely well known to me from a long series of infections for thigh abscesses. The patient is a 45-year-old man who was admitted five times in the last six months of 2015 for recurrent abscesses, primarily in the left thigh, though he has had abscesses in all four extremities at one time or another. The patient was known for intramuscular injection of heroin and other illicit agents into his shoulders and thighs bilaterally but he has stated that he has quit though the exact time he has quit tends to vary depending on who is asking the question. Today he tells me it has been a couple years, though on other admissions, he has told me as long as five years ago and as long as a few months ago, so the exact history remains a bit mysterious. He explains his persistently positive screens for opiates on the basis of longstanding oral morphine which is prescribed for him because of congenital hip disease and chronic hip pain. He also always has positive urine screens for amphetamines. In any event, the patient reports for the last three or four days he has been feeling poorly with a redness and tenderness in his left thigh associated with some fever and chills. He also has similar but less severe lesions in his right thigh as well as his left upper extremity. CAT scan showed a developing large abscess in the left thigh at the time of admission yesterday and for that reason, he was taken to the operating room where all three limbs with abscesses were explored. Dr. Godwin found the largest, of course, in the left thigh which has been the site of most of the action over the past year with respect to his soft tissue infection. There was no evidence for necrotizing fasciitis nor osteomyelitis based on examination and the available scans we have to date. The patient reports that in addition to the fevers, chills and increasing left thigh pain, he has had headache, some mild photophobia and some nausea without vomiting and a sense of generalized weakness. He has also been unable to walk in the past few days because of the left thigh pain. Since last night's excision and drainage, he has felt somewhat better though still in a great deal of pain. PAST MEDICAL HISTORY: 1. Subcutaneous intramuscular and intravenous drug use which he now denies has occurred in the last year or so. 2. Hypothyroidism. 3. Borderline diabetes. 4. 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 5. Hypertension. 6. Asthma/COPD. Outpatient oral medications include hydrocodone and morphine sulfate 100 b.i.d. He also takes levothyroxine. ALLERGIES: Include SULFA drugs, PENICILLIN and DALBAVANCIN. He developed severe muscle spasms during a dose of DALBAVANCIN on an earlier admission, and we were forced to stop. SOCIAL HISTORY: The patient states he stopped using injection heroin about 10 months ago. He denies drinking any alcohol and he continues to smoke cigarettes. In the past he has used cocaine, meth, marijuana and heroin. FAMILY HISTORY: Negative for tuberculosis in any first or second-degree relatives. His mom has chronic renal disease. REVIEW OF SYSTEMS: Was done. The patient states he has a fairly severe headache as well as some photophobia. His vision is unchanged. No sore throat. No significant cough, shortness of breath or chest pain. He has had nausea without vomiting or diarrhea. No dysuria or urinary problems. He has had progressive and severe pain over the past three or four days in his left thigh, and to a lesser extent, right thigh and left deltoid area. He has been unable to walk the last few days because of his progressive weakness and pain in the left thigh in particular. Remainder of the review of systems is negative. Note allergy history as above. PHYSICAL EXAMINATION: Reveals an afebrile gentleman, temperature 36.6, pulse 68, respiratory rate 16, blood pressure 147/80. Saturating well on room air. Examination of the mental status is clear. Eyes without conjunctivitis. Sinuses nontender. Oral cavity without thrush or hairy leukoplakia. Neck without significant adenopathy and it is supple. Lungs are clear. Cardiac tones: Regular rate and rhythm without demonstrable murmur. The abdomen is diffusely mildly tender without organomegaly or ascites. He does not have a Hameed catheter. He does not have any inguinal adenopathy. His right foot has an IV present in the dorsal foot which is already becoming mildly erythematous but is nontender. His feet are well perfused with reasonable pulses and capillary refill. No skin breakdown. His neurologic examination is basically intact. He has good strength throughout and normal sensation as well. With respect to his extremities, he has large dressings applied to the lateral upper thighs bilaterally as well as the left mid lateral arm. These were just placed hours ago by Dr. Godwin and I did not remove them. Above and below all these dressings is free of erythema. LABORATORIES: Include white count of 15,000 yesterday in the ED, 11,000 now. Differential with a mild left shift. Sed rate 68, creatinine 0.62. CRP is 15.4. LFTs normal. No tox screen has been done yet. Serology from last admission, we were able to show that even though his hepatitis C antibody is positive, his hep C viral load is undetectable consistent with self-care of hep C. Reviewing his micro, he has had many admissions over the last six months. Back in January, an abscess grew MRSA. In February an abscess grew Streptococcus anginosus with Prevotella. In April an abscess grew MSSA. In June an abscess grew a combination of Klebsiella and Enterobacter, both of which were sensitive to Cipro. Yesterday's cultures from the abscess of the left thigh are growing Staph aureus and we do not have susceptibilities yet. Blood cultures are negative from yesterday and a MRSA screen of the nares is negative. IMAGING: Includes a CT of the leg done yesterday preop which showed extensive infection in the left anterior lateral thigh suggestive of cellulitis with possible abscess. No muscle involvement is seen. No fasciitis is seen and no osteomyelitis is noted. There is an abnormality of the left femoral neck which suggests an old injury and degenerative changes in the left hip. IMPRESSION: The patient returns for what appears to be a sixth admission for soft tissue infection in the past nine months. These infections have had a wide ranging collection of organisms include MRSA, MSSA, anaerobes, gram-negative rods and strep anginosus. This one is so far growing Staph aureus and we do not have susceptibilities though a MRSA screen of the nares is negative. It is hard for me to believe that these are due to anything other than continued IV drug use as the patient reports he simultaneously developed abscesses in three limbs including his left arm and both thighs without being bacteremic. Note that the patient is also right-handed which might explain why the abscess is present in the left rather than the right upper extremity but given his adamant denial of using any drugs since sometime around November, it is hard to know exactly what is going on in terms of causation. Given this questionable history of ongoing drug use, I would like to avoid the use of any kind of IV as much as possible. For now will try and get along with the IV in his foot and switch completely to oral antibiotics perhaps as early as tomorrow. Note that I had hoped to give him dalbavancin but the patient did have an adverse reaction during an earlier admission, so for now we are going to go with daptomycin as well as oral Cipro given that his gram-negative rods were sensitive on his last admission which he grew gram-negative rods. RECOMMENDATIONS: 1. Will discontinue the vanc, clinda and meropenem as he does not have nec fasc. 2. I will give dapto once a day just to try and preserve our IV a little bit longer at a dose of 750 a day. 3. Will also give Cipro 750 p.o. b.i.d. also to help preserve that IV. 4. I would not place a central line in this patient and hopefully tomorrow when we have susceptibilities on the Staph aureus we could send him out on a regimen perhaps of linezolid plus Cipro or some similar concoction to avoid any need for a parenteral access or prolonged hospital stay. 5. The patient's hep C is cured and we need not address it any further. Thank you very much for this consult.
--- NOTE | 2016-10-25 18:16 | NUR ---
Pain NIGHT SHIFT discontinued when last vial emptied. Switched to oral pain medication. Pt states that pain is consistently at an 8/10 pain. Pt resting most of shift, appears comfortable. Hospitalist ordered MS contin scheduled and percocet for breakthrough pain. Bed down and locked, call light w/in reach
--- NOTE | 2016-10-25 23:02 | NUR ---
Micro Call from micro reported positive cocci staph in aerobic bottle. FYI page sent to Dr. Greene @ [phone]. Patient already started on Cipro 750mg PO BID & Daptomycin 650mg IV by infectious disease. No new orders.
[2016-10-26] MEDS: Heparin 5,000 Unit/mL Inj SUBQ SCH ×3 (00:20→16:53)
[2016-10-26] MEDS: oxyCODONE-Acetamin 5-325 mg Tablet PO PRN ×5 (02:27→20:19)
[2016-10-26] MEDS ORDERED: Vancomycin Serum Trough XX ONE (03:30)
[2016-10-26 05:10] VITALS: BP 120/74; PULSE 62; RESP 18; O2SAT 98
[2016-10-26 05:46] LABS: BASOPHILS % (AUTO) 0.4 % (0-3); MONOCYTES % (AUTO) 5.9 % (4-12); Mean Corpuscular Volume 81.6 fL (81-100); NEUTROPHILS % (AUTO) 70.3 % (40-74); Platelet Count 191 bil/L (150-400)
[2016-10-26 06:12] LABS: ERYTHROCYTE SEDIMENTATION RATE 87 mm/hr (0-15)
[2016-10-26] MEDS: Morphine ER 100 mg (MS Contin) Tablet PO SCH ×2 (08:41→20:19)
--- NOTE | 2016-10-26 09:11 | PCM.PNMED ---
Subjective Date of Service Oct 26, 2016 Subjective pt was in good spirit, has mild pain on surgical site aware of importance of cessation of heroin injection BCX showed gram positive cocci so far, remained afebrile, abx changed per ID Exam Vital Signs Vital Sign - Last Date Time Temp Pulse Resp B/P Pulse Ox O2 Delivery O2 Flow Rate FiO2 10/26/16 05:10 36.4 62 18 120/74 98 Room Air 10/24/16 19:50 8 Intake and Output 10/25/16 10/25/16 10/26/16 Cumulative From/Thru 15:00 23:00 07:00 10/24/16 12:10 - 10/26/16 06:30 Intake Total 2190 ml 1101 ml 2041 ml 8024 ml Output Total 2750 ml 1800 ml 2395 ml 7445 ml Balance -560 ml -699 ml -354 ml 579 ml Intake Oral 1440 ml 996 ml 1916 ml 4352 ml IV Total 750 ml 105 ml 125 ml 3672 ml Output Urine Total 2750 ml 1800 ml 2395 ml 7445 ml # Voids 6 6 # Bowel Movements 0 0 0 Exam NAD, comfortably laying down on the bed no JVD, MMM, no LAD RRR, nl s1, s2 no mrg CTAB, no w,c S,ND,NT,normoactive BS+ warm, no edema, pulses 2/2 sterilely dressed on bilateral lateral thigh, LUE IVs and Medications Medications Reviewed: Medications were reviewed in detail Lab and Diagnostics Result Diagram: 10/26/16 0450 10/26/16 0450 Assessment & Plan acute, active 1. multiple abscess on bilateral thigh, left upper arm in the setting of IM heroin use,Present on admission. Active. CAT scan showed no evidence of fasciitis, underwent surgical I&D 10/24 extensively. -started with meropenem and IV vancomycin, switched to daptomycin and ciprofloxacin -pain control withs/p ORTHODONTIC LABORATORY TECHNICIAN, change to home MS contine with percocet prn. chronic, stable #Polysubstance abuse, opioid, tobacco, POA, nicotine patch, counseled on complete cessation, appreciate JAVY he, caryl. #Chronic hypothyroidism, present on admission. Stable. Continue levothyroxine. #Chronic hypertension present on admission. Stable. Continue Norvasc. Monitor. dvt ppx:HSQ q8h diet: regular dispo:likely until BCX result returns, 1-2more days Full code Time spent 35 minutes Aida Muñoz MD Oct 26, 2016 09:11
[2016-10-26] MEDS ORDERED: 0.9% Sodium Chloride 250 ML ONE (09:18)
[2016-10-26] MEDS: DAPTOMYCIN IV SCH (09:22)
[2016-10-26] MEDS: SODIUM CHLORIDE 0.9% IV SCH (09:22)
[2016-10-26] MEDS: 0.9% Sodium Chloride 1,000 ML IV SCH ×2 (09:33→16:52)
--- NOTE | 2016-10-26 14:19 | NUR ---
Dressing Change All three surgical sites' dressings were taken down at approx 1335. Infectious Disease Doctor in room to visualize wounds. Wounds were then rinsed w/ sterile water and packed w/ wet gauze and topped w/ an ABD pad w/ Hypafix tape. IVP Morphine was administered 30min prior to dressing change. Pt's pain increased during dressing change despite premedication, pt encouraged to breathe and try to relax to help pain. Bed down and locked, call light w/in reach.
--- NOTE | 2016-10-26 14:43 | PROG NOTE ---
[address] [address] PROGRESS NOTE PATIENT: SINTIA OJEDA : 1970 MR#: [id number] ADMIT: 10/24/2016 JOB ID: [id number] DATE: 10/26/2016 INFECTIOUS DISEASE FOLLOW UP NOTE: REASON FOR FOLLOWUP: Multiple soft tissue abscesses left arm and both thighs. INTERVAL HISTORY: The patient reports he has had some chills but no fevers overnight. He reports considerable pain with dressing changes which is what is going on right now. No cough, shortness of breath, chest pain, nausea, vomiting. PHYSICAL EXAMINATION: Reveals an afebrile gentleman, temperature 36.4, pulse 62, respiratory rate 18, blood pressure 120/74, saturating well on room air. He is awake and alert. No acute distress. Oral cavity negative. Lungs clear. Cardiac tones without murmur. Abdomen benign. He has three healing incisions from his recent I and D's. One is over the left lateral upper arm and is about 3 cm long, 0.5 cm wide and about 1 cm deep. There is some surrounding cellulitis. The left lateral thigh wound is the biggest about 4 cm long, almost 2 cm wide and about 1 cm deep. He will not allow this to be really closely inspected or touched as he says it is too painful and there is clearly surrounding erythema. The right lateral thigh is the smallest about 2.5 cm long and quite shallow. All of these appear to have some degree of surrounding cellulitis and some induration. LABORATORIES: Include white count which has dropped from 16,000 down to 8000. Sed rate remains high but he has a normal differential. Creatinine 0.57. LFTs normal. Procalcitonin 0.11. Of primary importance is the cultures. The abscess cultures are growing Staph aureus from one. Another appears to have mixed microorganisms and yet another of his third abscess cultures is growing a viridans strep. Two blood cultures are growing coag-negative staph, which I suspect are contaminants. A MRSA molecular screen is negative. IMPRESSION: This is a complex case of a gentleman who has a long history of subcutaneous and IM drug use though he states he has not done it for a year or so. Oddly he has now developed more or less simultaneous abscesses in his left upper arm as well as both thighs and he is right handed. I am suspicious at least that there is ongoing subcutaneous or IM drug use though he denies it. In any event, were awaiting cultures and so far we have what appears to be a viridans strep as well as a Staph aureus from the wounds. The blood cultures are growing coag-negative staph, which I suspect has little to do with his wounds. RECOMMENDATIONS: 1. For now, will continue with daptomycin and oral Cipro as I had started yesterday. 2. I would not give the patient a central line as I do not think this rises to that level. 3. Tomorrow we should have back the cultures. I will be out of town for the next three days returning on Sunday but I do have a resident working with me and she will be in touch with me regarding the susceptibilities and appropriate antibiotics, but again, these will be oral antibiotics rather than IV if we can at all make that happen. 4. The patient states he will be getting follow up care in the [facility] which sounds quite appropriate.
--- NOTE | 2016-10-26 14:46 | NUR ---
Social Work- Initial Assessment Data: See Initial Assessment. Pt is a 45 year old male admitted 10/24/16 for sepsis, left thigh abscess per H&P. Pt's insurance is [employer] and [employer]. Pt's PCP is Collin Garcia MD. SW met with pt at bedside regarding discharge plan, SW role explained. Pt is currently homeless, states he is "between places". 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 Pt has no HH or SNF history. Pt has no LTC or VA benefits. Pt has no DPOA, declined paperwork. Pt has history of IV drug use, SW followed up regarding this. Pt states his last use was 3 years ago, declines current use despite abscesses. Pt declined CD assessment. Pt declined outpt CD resources. Pt states he has money for bus. Pt to discharge back to homelessness via [facility]. SW will continue to follow. Assessment: Pt who is independent at base. Plan: Pt declined CD assessment. Pt declined outpt CD resources. Pt to discharge to homelessness via [facility] transportation. SW will continue to follow. PAULA Schwab Addendum: 10/26/16 at 1454 by KIMBERLY MAGANA Amended: Links added.
[2016-10-26 16:19] VITALS: BP 122/66; PULSE 60; RESP 18; O2SAT 97
[2016-10-26 19:53] VITALS: BP 122/71; PULSE 61; RESP 20; O2SAT 98
[2016-10-27] MEDS: Heparin 5,000 Unit/mL Inj SUBQ SCH ×2 (00:36→09:49)
[2016-10-27] MEDS: oxyCODONE-Acetamin 5-325 mg Tablet PO PRN ×3 (00:37→13:03)
--- NOTE | 2016-10-27 04:50 | NUR ---
Pain Pain adequately controlled with prn Percocet and scheduled meds. Dressings are clean and dry. Hourly rounding ongoing.
[2016-10-27 05:05] VITALS: BP 130/74; PULSE 68; RESP 16; O2SAT 98
[2016-10-27 05:21] LABS: BASOPHILS % (AUTO) 0.2 % (0-3); EOSINOPHILS % (AUTO) 2.7 % (0-5); MONOCYTES % (AUTO) 5.6 % (4-12); Mean Corpuscular Hemoglobin 24.9 pg (27.0-35.0); Mean Corpuscular Volume 81.9 fL (81-100); Platelet Count 192 bil/L (150-400)
[2016-10-27] MEDS: 0.9% Sodium Chloride 1,000 ML IV SCH (05:33)
[2016-10-27 05:41] LABS: Phosphorus 4.3 mg/dL (2.5-4.9)
[2016-10-27] MEDS: Morphine ER 100 mg (MS Contin) Tablet PO SCH (08:36)
--- NOTE | 2016-10-27 09:17 | PCM.PNSURG ---
Subjective Date of Service: Oct 27, 2016 Visit Information: Reason for Visit Sepsis, Left Thigh Abscess Surgery/Surgery Date I&D L ARM AND R THIGH ABCESS 10/24/16 Post-Op Day #3 Date of Admission: Oct 24, 2016 at 15:01 Hospital Day # Subjective: Complains of pain that is only moderately relieved with analgesic agents. States nursing is changing his dressings. Ambulatory in the room. Postop General: Other (as above) Pain Management: PO Postop Activity: Ambulating Independently Objective Vital Sign- Last 8 Hours Date Time Temp Pulse Resp B/P Pulse Ox O2 Delivery O2 Flow Rate FiO2 10/27/16 05:05 36.6 68 16 130/74 98 Room Air Intake and Output- Last 8 Hour 10/27/16 Cumulative From/Thru 07:00 10/24/16 12:10 - 10/27/16 06:39 Intake Total 947 ml 84972 ml Output Total 750 ml 9045 ml Balance 197 ml 1112 ml Intake Oral 800 ml 6188 ml IV Total 147 ml 3969 ml Output Urine Total 750 ml 9045 ml # Voids 6 # Bowel Movements 0 2 General: Alert, Cooperative, No Acute Distress Lungs: Clear to Auscultation Heart: Regular Rate/Rhythm SURGICAL WOUND : Wound General Appearence: Wound under dressing, Other (right thigh, left hip , and left deltoid wounds were partially examined: No surrounding erythema, induration in resolution around all wounds. The depths of the wounds were not examined.) Neuro: Normal Speech Catheters: None Result Diagram: 10/27/16 0450 10/27/16 0450 Assessment & Plan Impression Primary diagnoses: 1. Large left lateral thigh abscess. 2. Left upper arm abscess. 3. Right thigh abscess. POD #3 on antibiotics with stable wounds that are undergoing dressing changes by nursing and wound care. Other chronic conditions: 1. IV drug abuse, which the patient denied it at admission. 2. Stated Hypothyroidism. 3. Stated Prediabetes. 4. Chronic pain. 5. Hypertension. 6. Asthma/COPD. 7. Daily cigarette smoker 8. History of cocaine, methamphetamine, and marijuana use Problems: Plan Continue IV antibiotics and dressing changes Pain Management: Oral analgesic Yonatan Mendez PA-C Oct 27, 2016 09:17
[2016-10-27] MEDS ORDERED: 0.9% Sodium Chloride 250 ML ONE (09:21)
[2016-10-27] MEDS: SODIUM CHLORIDE 0.9% IV SCH (09:50)
[2016-10-27] MEDS: DAPTOMYCIN IV SCH (09:50)
[2016-10-27] MEDS ORDERED: CEPH-512 PO (11:16)
--- NOTE | 2016-10-27 11:22 | PCM.DIMED ---
Discharge Instructions Date of Service Oct 27, 2016 Dates of Hospitalization Oct 24, 2016 at 15:01 Discharge Diagnosis Discharge Diagnosis ABCESS complicated with streptococcus Anginosus on L ARM AND R THIGH s/p I&D 10/24/16 Medication Instructions Please continue to take Keflex for 14more days Diet No restrictions Activity No restrictions Patient Instructions He will hospitalized with multiple abscesses on her bilateral thigh and left arm , underwent surgical intervention, tolerated well. It shows that you have bacteria called Streptococcus anginosus, which needs to be treated with antibiotics. Please follow medicine instruction above, Please follow Wound Care clinic in [place]. We will also set up appointment at [facility], primary care. Please continue to follow up until your wounds healed Please note that you need change the dressing daily basis, otherwise, you can develop more severe infection which requires further surgical intervention. You were instructed by the nursing staff. Follow-up Provider: Collin Garcia MD Follow-up with PCP in: 2 weeks iAda Muñoz MD Oct 27, 2016 11:22
--- NOTE | 2016-10-27 11:30 | NUR ---
Social Work- Readiness for Discharge Data: EMR reviewed. Pt is on day 3 of hospitalization for sepsis, left thigh abscess per H&P. Pt is not medically stable for discharge, anticipate discharge later today pending blood cultures. Pt is independent at base. Pt declined CD assessment. Pt declined outpt CD resources. Pt states he has money for bus. Pt to discharge back to homelessness via [facility]. No anticipated discharge needs. SW will continue to follow. Assessment: Pt who is independent at base. Plan: Pt declined CD assessment. Pt declined outpt CD resources. Pt to discharge to homelessness via [facility] transportation. No anticipated discharge needs. SW will continue to follow. PAULA Schwab
--- NOTE | 2016-10-27 12:19 | PCM.DC.MED ---
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 For radiation dose reduction, the following was used: automated exposure control, adjustment of mA and/or kV according to patient size. COMPARISON: [facility], CT, CT LOWER EXTREMITY LT W CON, 04/26/2016 , 12:20. FINDINGS: Image quality: Diagnostic. Bones: There is no acute fracture or dislocation involving the osseous structures of the imaged pelvis or left femur. Formerly of the proximal left femoral head/neck is suggestive of an old injury. There is prominent joint space narrowing and associated degenerative changes of the femoral acetabular joint. No suspicious osseous lesions or erosions are identified. No periosteal elevation is appreciated. Degenerative changes of the sacroiliac joints are noted. A subtle lucent lesion involving the right acetabulum is noted anteriorly, which is not adequately characterized on this examination, but demonstrates peripheral sclerosis, suggesting an intraosseous ganglion cyst. Soft tissues: Prominent skin thickening and subcutaneous edema is identified along the antral lateral aspect of the left thigh with edema noted involving the superficial fascia. No definite fluid or edema is seen extending into the deep fascial planes. There are areas of soft tissue air noted along the proximal aspect of the left hip region with an associated collection of fluid that measures at least 3.0 x 1.2 cm (image 33, series 2). Additional lobular structures are evident along the superficial fascia of the anterolateral proximal left thigh just below this fluid collection, measuring 2.5 x 1.4 cm ( image 49, series 2). No definite intramuscular fluid collections are present. Incidental note is made of air and contrast contained within the right common femoral and external iliac vein, which probably is related to injection of contrast through the right lower extremity and clinical correlation is recommended. Multiple enlarged lymph nodes are noted on the left iliac chain and in the left inguinal region with the largest lymph node measuring up to approximately 2.5 x 1.8 cm. Moderate residual stool is seen within the pelvis. The imaged portions of the appendix are normal in size. No free fluid or loculated fluid collection is seen within the intraperitoneal cavity. IMPRESSION: 1. Extensive subcutaneous and superficial fascial edema of the anterolateral aspect of the left thigh is suggestive of cellulitis. Small loculated fluid collections within the subcutaneous tissues are noted overlying the left hip region and upper thigh region, suggesting developing abscesses. No muscle abscesses are evident. 2. No definite edema, air, or fluid is seen within the deep fascial planes to suggest fasciitis. However, correlation with clinical findings is recommended. 3. Enlarged left inguinal and iliac lymph nodes are likely reactive. Dictated by: Roberto Carlos Madrid M.D. on 10/24/2016 at 13:36 Approved by: Roberto Carlos Madrid M.D. on 10/24/2016 at 13:56 Brief History HPI obtained by on 10/24 This is a 45-year-old male who has recurrent admissions for different abscesses with different organisms in different parts of his body, highly suspicious for ongoing skin popping for narcotics. However, patient denies using any needles for a year or two at this point in time. He was last here in June. He has been doing pretty well but then noticed redness and swelling in his left thigh area starting three days ago which got progressively worse. He also has two areas on both of his upper shoulders/arms area. Presented to the ED. His CAT scan shows developing abscesses in the thigh. No evidence of fasciitis, and Surgery has asked us to admit patient. He has had some fevers. He has pain and again denies any instrumentation injection to those areas. He has had no headache. Denies fevers or diaphoresis. No nausea or diarrhea Hospital Course acute #multiple area of abscess on bilateral thigh, left upper arm in the setting of presumed active IM heroin use. CAT scan showed no evidence of fasciitis, underwent surgical I&D 10/24 extensively, continued daily dressing, Patient was started with meropenem and IV vancomycin, switched to daptomycin and ciprofloxacin per ID consult. Final wound culture showed streptococcus Angionosus, staph aureus, staph epididermis, all sensitive to Keflex, which will be continued for 14days, Patient will be followed up at Wound Care clinic in [place], pain was controlled initially with DIGITAL FORENSICS EXAMINER, change to home MS contine with percocet prn. chronic #Polysubstance abuse, opioid, tobacco, POA, nicotine patch, counseled multiple time with multiple staffs on complete cessation #Chronic hypothyroidism, present on admission. Stable. Continued levothyroxine. #Chronic hypertension present on admission. Stable. Continued Norvasc. Monitor. Exam Vital Signs (Last) Date Time Temp Pulse Resp B/P Pulse Ox O2 Delivery O2 Flow Rate FiO2 10/27/16 05:05 36.6 68 16 130/74 98 Room Air 10/24/16 19:50 8 Exam NAD, comfortably laying down on the bed no JVD, MMM, no LAD RRR, nl s1, s2 no mrg CTAB, no w,c S,ND,NT,normoactive BS+ warm, no edema, pulses 2/2 sterilely dressed on bilateral lateral thigh, LUE Test 10/24/16 13:10 10/26/16 04:50 10/27/16 04:50 Hemoglobin A1c 6.5% (4.8-5.6) Lactic Acid Level 1.5mmol/L (0.4-2.0) C-Reactive Protein 15.4mg/dL (0.0-0.5) Procalcitonin 0.11ng/mL (0.00-0.08) Thyroid Stimulating Hormone (TSH) 5.640uIU/mL (0.450-4.500) Free Thyroxine 1.01ng/dL (0.82-1.77) Erythrocyte Sedimentation Rate 87mm/hr (0-15) White Blood Count 8.1th/mm3 (3.8-10.1) Red Blood Count 3.82mil/mm3 (4.40-5.80) Hemoglobin 9.5g/dL (13.8-17.2) Hematocrit 31.3% (41.0-50.0) Mean Corpuscular Volume 81.9fL (81-100) Mean Corpuscular Hemoglobin 24.9pg (27.0-35.0) Mean Corpuscular Hemoglobin Concent 30.4% (32.0-37.0) Red Cell Distribution Width 15.6% (12.3-15.4) Platelet Count 192bil/L (150-400) Neutrophils (%) (Auto) 73.0% (40-74) Lymphocytes (%) (Auto) 17.6% (14-46) Monocytes (%) (Auto) 5.6% (4-12) Eosinophils (%) (Auto) 2.7% (0-5) Basophils (%) (Auto) 0.2% (0-3) Sodium Level 139mEq/L (134-144) Potassium Level 4.3mEq/L (3.5-5.2) Chloride Level 99mEq/L (97-108) Carbon Dioxide Level 26mmol/L (18-29) Blood Urea Nitrogen 7mg/dL (6-24) Creatinine 0.62mg/dL (0.76-1.27) Estimat Glomerular Filtration Rate 148mL/min (>59) Glucose Level 184mg/dL (60-99) Calcium Level 9.1mg/dL (8.5-10.1) Phosphorus Level 4.3mg/dL (2.5-4.9) Magnesium Level 2.0mg/dL (1.6-2.6) Total Bilirubin 0.2mg/dL (0.0-1.2) Aspartate Amino Transf (AST/SGOT) 8U/L (0-50) Alanine Aminotransferase (ALT/SGPT) 6U/L (0-44) Alkaline Phosphatase 78U/L (25-150) Total Protein 6.1g/dL (6.4-8.4) Albumin 3.1g/dL (3.4-5.0) Discharge Medications Discharge Medications Amlodipine (Amlodipine) 5 Mg Tablet 5 MG PO DAILY Prescribed by: RADHA PHILLIPS DO Cephalexin (Keflex) 500 Mg Capsule 500 MG PO QID Prescribed by: AIDA PRATT MD Levothyroxine (Levothyroxine) 150 Mcg Tablet 150 MCG PO QAM (Reported) Morphine Sulfate ER (Morphine Sulfate ER) 100 Mg Tablet 100 MG PO BID (Reported ) As needed Albuterol HFA (Proair HFA) 8.5 Gm Hfa.aer.ad 2 PUFFS INHALATION Q4H PRN PRN For Shortness of Breath (Reported) Hydrocodone-Acetaminophen 10-325 mg (Hydrocodone-Acetaminophen 10-325 mg) 1 Each Tablet 1 TABLET PO Q4H PRN PRN For Pain (Reported) Additional med instructions Please continue to take Keflex for 14more days Followup Plan Disposition: home Discharge Diet: No restrictions Discharge Activity: No restrictions Patient Instructions He will hospitalized with multiple abscesses on her bilateral thigh and left arm , underwent surgical intervention, tolerated well. It shows that you have bacteria called Streptococcus anginosus, which needs to be treated with antibiotics. Please follow medicine instruction above, Please follow Wound Care clinic in [place]. We will also set up appointment at [facility], primary care. Please continue to follow up until your wounds healed Please note that you need change the dressing daily basis, otherwise, you can develop more severe infection which requires further surgical intervention. You were instructed by the nursing staff. Follow-up Provider: Collin Garcia MD Follow-up with PCP in: 2 weeks Time spent 65min Aida Pratt MD Oct 27, 2016 12:03
== END 2016-10-27 14:30 | disposition home or self-care (01) | DRG 603 ==
LOC: SED 12:07 → OSC 15:01
PROVIDERS: ADMIT Hospitalist; ATTEND Hospitalist
PROC: 0J9F3ZX Drainage of Left Upper Arm Subcutaneous Tissue and Fascia, Percutaneous Approach, Diagnostic (ICD-10-PCS; 2016-10-24)
PROC: 0J9L3ZZ Drainage of Right Upper Leg Subcutaneous Tissue and Fascia, Percutaneous Approach (ICD-10-PCS; 2016-10-24)
PROC: 0J9M3ZX Drainage of Left Upper Leg Subcutaneous Tissue and Fascia, Percutaneous Approach, Diagnostic (ICD-10-PCS; principal; 2016-10-24 17:30)
DX: L03.116 Cellulitis of left lower limb (principal); L03.114 Cellulitis of left upper limb; L03.115 Cellulitis of right lower limb; Z86.14 Personal history of Methicillin resistant Staphylococcus aureus infection; F17.210 Nicotine dependence, cigarettes, uncomplicated; E03.9 Hypothyroidism, unspecified; I10 Essential (primary) hypertension; R73.03 Prediabetes; F19.10 Other psychoactive substance abuse, uncomplicated; B95.4 Other streptococcus as the cause of diseases classified elsewhere

== ENCOUNTER 2016-11-24 23:22 | Inpatient (IN) | payer MEDICARE, MEDICAID ==
[~2016-11-24] VITALS: Ht 177.8 cm; Wt 99.2 kg
[~2016-11-24 23:22] MED LIST changes: +CEPH-512 PO; -CIPR-231 PO; +HYDR-3740 PO; -HYDR-4003 PO
[2016-11-24 23:47] VITALS: BP 137/93; PULSE 104; RESP 18; O2SAT 99
[2016-11-25] VITALS (13 sets, daily range): BP systolic 129–168; BP diastolic 63–96; PULSE 72–90; RESP 7–24; O2SAT 95–100
--- NOTE | 2016-11-25 00:33 | ED.REPORT ---
HPI-Rash / Abscess Date of Service November 25, 2016 ED Provider: Alexi Brenner MD A 45 year old male with a history of hypertension, IV heroin abuse, MRSA and recurrent abscess presents to the ED complaining of multiple abscesses that appeared approx. 2 days ago. Patient was recently admitted for sepsis and a left hip abscess and had an I & D performed on 10/24. The most severely affected areas to his bilateral shoulders and left hip have become increasingly red and swollen. Patient reports taking prescribed Percocet with little relief. He denies any recent heroin use. Nursing Notes Stated Complaint: POSSIBLE INFECTION Chief Complaint: Skin Rash/Abscess Nursing Notes Reviewed: Yes Allergies: Coded Allergies: Sulfa (Sulfonamide Antibiotics) (Verified Allergy, Intermediate, Rash, 03/31) STATES BLISTERS ON PENIS codeine (Verified Allergy, Mild, Rash,Itching,, 03/31/16) penicillin G (Verified Allergy, Unknown, Rash, 03/31/16) IN HIS YOUTH dalbavancin (Verified Adverse Reaction, Intermediate, Severe muscle spasms required discontinuation of infusion., 04/30/16) erythromycin base (Verified Adverse Reaction, Mild, Nausea, 03/31/16) Scheduled Levothyroxine (Levothyroxine) 150 Mcg Tablet 150 MCG PO QAM Morphine Sulfate ER (Morphine Sulfate ER) 100 Mg Tablet 100 MG PO BID Scheduled PRN Albuterol HFA (Proair HFA) 8.5 Gm Hfa.aer.ad 2 PUFFS INHALATION Q4H PRN PRN For Shortness of Breath Hydrocodone-Acetaminophen 10-325 mg (Hydrocodone-Acetaminophen 10-325 mg) 1 Each Tablet 1 TABLET PO Q4H PRN PRN For Pain General Time Seen by MD: 00:29 Chief Complaint Abscess Hx Obtained From: Patient Arrived By: Walk-in Onset Occurred: 2 days ago Symptom Duration: Since onset Location: : Buttock: Shoulder Quality: Painful Severity: Current: Moderate Severity: Maximum: Moderate Pertinent Negative: Pt denies other symptoms Recent Healthcare: Recent doctor visit, Recent hospitalization Past Medical History Past Medical History Hx IV drug use. Last use Dec 18 2015 Hypothyroid per patient- currently not receiving medication MSRA Reports: Diabetes mellitus Past Surgical History Abscess I&D in OR Reports: Tonsillectomy Smoking History Current Every Day Smoker Social History Alcohol Use: Denies alcohol use Drug Use: In recovery, IV drugs Other Social History: Poor social support, Local resident Ambulatory Status Independent Review of Systems Constitutional: Denies: Chills, Fever Respiratory: Denies: Shortness of breath Musculoskeletal: Reports: Extremity pain (secondary to abscess) Skin: Reports Rash (multiple abscess') Complete sys rev & neg: except as marked. Neurologic: Denies: Change LOC Physical Exam Initial Vital Signs Vital Signs (First) Date Time Temp Pulse Resp B/P Pulse Ox O2 Delivery O2 Flow Rate FiO2 11/24/16 23:47 36.8 104 18 137/93 99 Room Air Initial VS: Reviewed, Vital signs abnormal Neck: Supple, Non-tender, Full range of motion Extremities: Vascular intact, Neuro intact, No swelling, No tenderness Neurologic: Alert, Oriented, Nonfocal Psychiatric: Mood/affect normal, Behavior normal, Normal thought content General/Constitutional: Awake, Alert Distress / Hydration: Positive: Distress mild Skin: Atraumatic, Color NL, Warm, Dry Abscess Notes: ABSCESS: Multiple healed incisions and partially healed incisions Cavities in skin from previous abscessess Variety of open wounds Abscess #1 Location/Condition: Positive: Fluctuant, Location (Deltoids), Purulent discharge Abscess #2 Location/Condition: Positive: Location (Lateral Thighs), Purulent discharge Head / Eyes: Atraumatic, Normocephalic, PERRL Respiratory / Chest: Atraumatic, No respiratory distress Abdomen: Atraumatic, Soft Interpretation & Diagnostics CT UPPER EXTREMITY w/ contrast Read by [facility] IMPRESSION: Multiple abscesses collections in the left arm, the largest is located in the proximal lateral arm CT LOWER EXTREMITY (R) w/contrast Read by [facility] IMPRESSION: Abscess collections in the bilateral pelvic wall, hip and distal lateral thigh Mild edema of the right vastus lateralis muscles, possibly reactive in etiology versus acute myositis CT LOWER EXTREMITY (L) w/contrast Read by [facility] IMPRESSION: Abscess collections in the left lateral pelvic wall, upper hip region and distal lateral thigh Edematous left vastus lateralis muscle, possibly reactive in etiology versus acute myositis Lab Results Interpretation Result Diagram: 11/25/16 0200 11/25/16 0200 Test 11/25/16 02:00 White Blood Count 15.1th/mm3 (3.8-10.1) Red Blood Count 3.90mil/mm3 (4.40-5.80) Hemoglobin 9.8g/dL (13.8-17.2) Hematocrit 30.7% (41.0-50.0) Mean Corpuscular Volume 78.7fL (81-100) Mean Corpuscular Hemoglobin 25.1pg (27.0-35.0) Mean Corpuscular Hemoglobin Concent 31.9% (32.0-37.0) Red Cell Distribution Width 16.1% (12.3-15.4) Platelet Count 206bil/L (150-400) Neutrophils (%) (Auto) 79.3% (40-74) Lymphocytes (%) (Auto) 11.9% (14-46) Monocytes (%) (Auto) 5.6% (4-12) Eosinophils (%) (Auto) 1.4% (0-5) Basophils (%) (Auto) 0.5% (0-3) Band Neutrophils % 1% (1-5) Sodium Level 134mEq/L (134-144) Potassium Level 3.6mEq/L (3.5-5.2) Chloride Level 92mEq/L (97-108) Carbon Dioxide Level 24mmol/L (18-29) Blood Urea Nitrogen 11mg/dL (6-24) Creatinine 0.58mg/dL (0.76-1.27) Estimat Glomerular Filtration Rate 160mL/min (>59) Glucose Level 139mg/dL (60-99) Lactic Acid Level 1.2mmol/L (0.4-2.0) Calcium Level 8.5mg/dL (8.5-10.1) Magnesium Level 1.8mg/dL (1.6-2.6) Total Bilirubin 0.2mg/dL (0.0-1.2) Aspartate Amino Transf (AST/SGOT) 8U/L (0-50) Alanine Aminotransferase (ALT/SGPT) 5U/L (0-44) Alkaline Phosphatase 84U/L (25-150) Total Protein 6.9g/dL (6.4-8.4) Albumin 3.2g/dL (3.4-5.0) Lab Results Interpretation: Anemia, elevated white blood count, mildly elevated nonfasting glucose. Lactic acid is normal. Re-Eval/Medical Decision Med Decision/Clinical Course 45-year-old male who has a history of multiple IV injection drug use abscesses on his bilateral upper arms and shoulders and his bilateral legs and hips. He was recently admitted in October for antibiotics and drainage. He now has increasing pain and drainage and presents for reevaluation. His white count is elevated 15,100. His lactic acid is normal. He also has chronic anemia. He has draining abscesses on all [address] was done of each site revealing multiple DEEP tissue abscesses, please see reports. Blood cultures were done and Vancomycin and Rocephin were started. He was given a liter of fluid initially. Case was discussed with Dr. Wood the patient will be admitted to the hospitalist service with Dr. Hoffmann consulting. Plan is to go to the OR first thing in the morning. Re-Evaluation/Progress : Time of Eval: 03:50 Patient Status: Condition improved Re-Evaluation/Progress Note: Patient is informed of his concerning CT results and the recommended plan to admit. All questions are addressed and he agrees with the plan. Consultation #1: Referral / Consult Name: Arun Hoffmann MD Consulted With: Surgeon Call Returned at: 03:55 Rn Integrity: Will see patient, Agrees with eval, Agrees with plan, Accepts admit Consultation #2: Referral / Consult Name: Carl Wood MD Consulted With: Hospitalist Call Returned at: 04:21 Rn Integrity: Will see patient, Agrees with eval, Agrees with plan, Accepts admit Note: Recommends Ceftriaxone Counseled Regarding: Diagnosis, Lab results, Need for admission Discharge & Departure Impression: Primary Impression: Abscess of multiple sites Additional Impression: Sepsis Sepsis type: sepsis due to unspecified organism Qualified Code: A41.9 - Sepsis, unspecified organism Disposition: Home Discharge Condition All VS Reviewed: Yes Condition: Improved Referrals: Collin Garcia MD (PCP) Cesar Attestation Portions of this note were transcribed by Abdi Foster. I, Dr. Brenner personally performed the history, physical exam and medical decision-making; I reviewed and confirmed the accuracy of the information in the transcribed note. Signed by: Cesar Le, 11/25/16 0445. copies to: Collin Garcia MD, Alexi Buenrostro MD November 25, 2016 00:33 ABDI FOSTER November 25, 2016 00:39
[2016-11-25 02:08] LABS: BASOPHILS % (AUTO) 0.5 % (0-3); EOSINOPHILS % (AUTO) 1.4 % (0-5); MONOCYTES % (AUTO) 5.6 % (4-12); Mean Corpuscular Hemoglobin 25.1 pg (27.0-35.0); Mean Corpuscular Volume 78.7 fL (81-100); NEUTROPHILS % (AUTO) 79.3 % (40-74); Platelet Count 206 bil/L (150-400)
[2016-11-25] MEDS ORDERED: Ondansetron 2 mg/mL 2 mL Inj IVPUSH PRN ×2 (02:35→13:50)
[2016-11-25] MEDS ORDERED: HYDROmorphone 1 mg/mL Inj IVPUSH PRN ×2 (02:35→13:50)
[2016-11-25 02:36] LABS: Magnesium 1.8 mg/dL (1.6-2.6)
[2016-11-25] MEDS ORDERED: Vancomycin Inj 2,000 MG in 0.9% Sodium Chloride 500 ML IV ONE (04:05)
[2016-11-25] MEDS ORDERED: 0.9% Sodium Chloride 1,000 ML IV SCH (04:21)
[2016-11-25] MEDS ORDERED: Vancomycin Dose per Pharmacist XX ONE (04:25)
[2016-11-25] MEDS ORDERED: cefTRIAXone Inj 2,000 MG in Dextrose 5% Minibag Plus 50 ML IV ONE (04:25)
[2016-11-25] MEDS ORDERED: Polyethylene Glycol (PEG) 17 Gm Powder PO PRN (04:25)
[2016-11-25] MEDS ORDERED: 0.9% Sodium Chloride 1,000 ML IV ONE (04:25)
[2016-11-25] MEDS ORDERED: Alum-Mag Hydrox-Simeth 30 mL Suspension PO PRN (04:25)
--- NOTE | 2016-11-25 05:22 | PCM.HPMED ---
Subjective Date of Service November 25, 2016 Primary Provider: Admitting Physician: Carl Wood MD Primary Care Physician: Collin Garcia MD Attending Physician: Carl Wood MD Admit Status: From the Emergency Department, Full Admit, Remote Telemetry Chief Complaint: Multiple abscess History of Present Illness: Fred Salgado is a 45 year old male with Hypothyroid, IV heroin abuse, MRSA and recurrent abscess presents to [facility] emergency department complaining of multiple abscesses that appeared approx. 2 days ago. The areas to his bilateral shoulders and left hip have become increasingly red and swollen. He also reported chills and feeling sick. Denies any fever. Patient reported this is similar to previous episodes of skin abscesses. He adamantly denies shooting any IV drugs. Patient reports taking Percocet with little relief. Patient has multiple admission of skin abscesses requiring I&D surgeries. Recent admission dated 10/24-10/27/16 reviewed: patient presented with multiple area of abscess on bilateral thigh, left upper arm in the setting of presumed active heroin use. CAT scan showed no evidence of fasciitis, underwent surgical I&D 10/24 extensively. Patient was started with meropenem and IV vancomycin, switched to daptomycin and ciprofloxacin per ID consult. Final wound culture showed streptococcus Angionosus, staph aureus, staph epididermis, all sensitive to Keflex, which will be continued for 14days Case discussed with Dr Brenner, he spoke to Dr Hoffmann from surgery who wanted to patient to be npo. Iv fluids and antibiotics initiated Review of Systems: Pertinent positives as noted in HPI. All other systems were reviewed and are negative Allergies Coded Allergies: Sulfa (Sulfonamide Antibiotics) (Verified Allergy, Intermediate, Rash, 03/31) STATES BLISTERS ON PENIS codeine (Verified Allergy, Mild, Rash,Itching,, 03/31/16) penicillin G (Verified Allergy, Unknown, Rash, 03/31/16) IN HIS YOUTH dalbavancin (Verified Adverse Reaction, Intermediate, Severe muscle spasms required discontinuation of infusion., 04/30/16) erythromycin base (Verified Adverse Reaction, Mild, Nausea, 03/31/16) PMH 1. IV drug abuse, which he now denies current. 2. Hypothyroidism. 3. Prediabetes. 4. Chronic pain. 5. Hypertension. 6. Asthma/COPD . Surgical History multiple I&D tonsillectomy Family History Mother with heart and kidney disease. Rest of review of the family is unknown at this time. Social History Hx Alcohol Use: No Hx Substance Use: Yes (Heroin/Amphetamines/Oxy/Meth/Opiates-states its been 2yrs) Hx Tobacco Use: Yes Smoking Status: Current Every Day Smoker Exam Vital Signs Vital Sign - Last Date Time Temp Pulse Resp B/P Pulse Ox O2 Delivery O2 Flow Rate FiO2 11/24/16 23:47 36.8 104 18 137/93 99 Room Air Exam General: Alert, Oriented X3, Cooperative, No acute Distress Eyes: PERRLA, Scleral Anicteric Mouth: Mouth Normal, Mucous Membranes poor dentition Neck: Supple, no Thyromegaly, trachea central. Chest & Lungs: Clear to auscultation & percussion, No adventitious breath sounds, no crackles, no wheeze Cardiovascular: Normal S1, Normal S2, No Murmurs/Rubs/Gallops, sinus tachycardia (No JVD, no peripheral edema) Pulses: Radial (present and equal), Dorsalis Pedi (present and equal) Abdomen: Soft, Non-tender, Non-distended, Normoactive bowel tones. Musculoskeletal: Unremarkable. Normal range of motion, no swollen or erythematous joints Skin: Multiple healed incisions and partially healed incisions noted on both upper arms and both lateral thighs Cavities in skin from previous abscesses Variety of open wounds Left Deltoid region: Purulent discharge, tender to touch Left Lateral Thighs), Purulent discharge, swelling Neurological: Grossly neurologically intact, has generalized weakness, Normal Speech, Sensation Intact Lymphatic: Lymph nodes Cervical and Axillary not palpable. Lab and Diagnostics Labs Laboratory Tests Test 11/25/16 02:00 White Blood Count 15.1th/mm3 (3.8-10.1) Red Blood Count 3.90mil/mm3 (4.40-5.80) Hemoglobin 9.8g/dL (13.8-17.2) Hematocrit 30.7% (41.0-50.0) Mean Corpuscular Volume 78.7fL (81-100) Mean Corpuscular Hemoglobin 25.1pg (27.0-35.0) Mean Corpuscular Hemoglobin Concent 31.9% (32.0-37.0) Red Cell Distribution Width 16.1% (12.3-15.4) Platelet Count 206bil/L (150-400) Neutrophils (%) (Auto) 79.3% (40-74) Lymphocytes (%) (Auto) 11.9% (14-46) Monocytes (%) (Auto) 5.6% (4-12) Eosinophils (%) (Auto) 1.4% (0-5) Basophils (%) (Auto) 0.5% (0-3) Band Neutrophils % 1% (1-5) Sodium Level 134mEq/L (134-144) Potassium Level 3.6mEq/L (3.5-5.2) Chloride Level 92mEq/L (97-108) Carbon Dioxide Level 24mmol/L (18-29) Blood Urea Nitrogen 11mg/dL (6-24) Creatinine 0.58mg/dL (0.76-1.27) Estimat Glomerular Filtration Rate 160mL/min (>59) Glucose Level 139mg/dL (60-99) Lactic Acid Level 1.2mmol/L (0.4-2.0) Calcium Level 8.5mg/dL (8.5-10.1) Magnesium Level 1.8mg/dL (1.6-2.6) Total Bilirubin 0.2mg/dL (0.0-1.2) Aspartate Amino Transf (AST/SGOT) 8U/L (0-50) Alanine Aminotransferase (ALT/SGPT) 5U/L (0-44) Alkaline Phosphatase 84U/L (25-150) Total Protein 6.9g/dL (6.4-8.4) Albumin 3.2g/dL (3.4-5.0) Microbiology 11/25/16 Blood Culture, Received Pending Result Diagram: 11/25/16 0200 11/25/16 0200 Assessment & Plan Fred Salgado is a 45 year old male with Hypothyroid, IV heroin abuse, MRSA and recurrent abscess presents to [facility] emergency department complaining of multiple abscesses 1. Sepsis. Present on admission Meeting criteria with tachycardia and Leukocytosis with skin infections as source. Lactic acid normal - IV fluids resuscitations according to Sepsis protocol - early initiation of antibiotics 2 Multiple skin abscess with cellulitis. Present on admission Likely from skin popping and ongoing IV drug abuse. Prior history of MRSA infections. - Vancomycin and Ceftriaxone for empiric antibiotics - Dr Hoffmann from surgery consulted, NPO for possible debridement - high risk for endocarditis, echo will be ordered if Blood cultures are positive - consultation with Dr Ziegler will be pursued 3 Hypothyroidism - continuing Synthroid 4 Heroine Abuse - workers' compensation magistrate to provide resources - monitor for withdrawal signs - Dilaudid IV PRN to management symptoms 5 Nicotine dependence. Cessation discussed and encouraged - Nicotine patch on request - Acetaminophen as needed for mild pain/fever/headache - Bowel regimen as needed - Antiemetic as needed Patient admitted under inpatient status with expected length of stay > 2 midnights for severity of present symptoms, complexities of treatment plan and risk for adverse event . VTE Prophylaxis: Sub-Q Heparin (Unfractionated) Resuscitation Status: CPR: Attempt Resuscitation Carl Wood MD November 25, 2016 04:28
--- NOTE | 2016-11-25 05:35 | NUR ---
Admission Pt arrived to room 3008 alert and oriented x3, c/o generalized pain from generalized abscesses. Md notified and pain medication was ordered and given. Pt was oriented to room, call light, bed and policies. Pts belongings were locked into storage closet in room, Pt has 2 cell phones at beds side with him. Pt was placed on telemetry and IV antibiotic were hung.
[2016-11-25] MEDS: HYDROmorphone 1 mg/mL Inj IVPUSH PRN ×3 (05:45→16:15)
--- NOTE | 2016-11-25 06:02 | PCM.PHAPRO ---
Progress Date of Service: November 25, 2016 Multiple abscess Vancomycin Management Per Pharmacy: Indication: Cellulitis in a patient with history of IV drug use Goal Trough: 10-15 mcg/dL Age: 45 yo Labs: WBC: 15.1 SrCr: 0.58 Lactate: 1.2 Est CrCl: ~120 mL/min Micro: Hx of MRSA, MSSA, and strep in wound cultures Additional Abx: Rocephin IV Nephrotoxic Risk Factors: None Vitals: All stable Recommendation: Load: Vancomycin 2000 mg IV x 1 initial load in ED (~20 mg/kg) Maintenance: Vancomycin 1500 mg IV Q12h (~15 mg/kg) Vanco Trough: Draw trough on 11/26/16 @ 2300, prior to midnight dose Pharmacy to continue to monitor and adjust dose as needed. Thank You, Dinora Cummings, Pharm D. Dinora Cummings November 25, 2016 06:01
--- NOTE | 2016-11-25 07:42 | DRSVH ---
PROCEDURE: CT UPPER EXTREMITY LT W CON INDICATIONS: abscesses TECHNIQUE: After the administration of intravenous contrast, 3 mm axial sections acquired of the left upper extr emity, with coronal and sagittal reformats. For radiation dose reduction, the following was used: a utomated exposure control, adjustment of mA and/or kV according to patient size. COMPARISON: None. FINDINGS: Image quality: Excellent. Bones: No cortical thinning or periosteal reaction. No fracture or dislocation. Soft tissues: There is a rim-enhancing fluid collection which is intermediate density centrally which measures 3.8 x 1.9 x 8.1 cm. This abuts the lateral aspect of the left deltoid musculature. There is overlying subcutaneous edema. Just superior to this rim-enhancing fluid collection is a 7 mm diamete r rim enhancing centrally intermediate density fluid collection with a punctate focus of gas present (series 4, image 18). A complex, enhancing fluid collection with a central focus of gas is present ov erlying the triceps. This measures 3.1 x 2.1 x 4.4 cm. There are multiple shotty left axillary lymph nodes, some of which are pathologically enlarged. IMPRESSION: 1. 3 discrete enhancing fluid collections, 2 of which contain punctate foci of gas. The superior zuleyka ection measures less than 1 cm in diameter and is likely not amenable to her percutaneous drainage. T he inferior collection has a complex appearance suggesting a phlegmon. The middle fluid collection ov erlying the deltoid musculature may be amenable to percutaneous drainage. 2. No findings to suggest osteomyelitis. 3. Axillary adenopathy, likely infectious in nature. These findings are concordant with the overnight interpretation. Dictated by: Ayana Bautista M.D. on 11/25/2016 at 7:34 Approved by: Ayana Bautista M.D. on 11/25/2016 at 7:40
--- NOTE | 2016-11-25 07:47 | DRSVH ---
PROCEDURE: CT LOWER EXTREMITY LEFT WITH CONTRAST INDICATIONS: abscesses TECHNIQUE: After the administration of intravenous contrast, 3 mm axial sections acquired of the right lower ext remity, with coronal and sagittal reformats. For radiation dose reduction, the following was used: automated exposure control, adjustment of mA and/or kV according to patient size. COMPARISON: None. FINDINGS: Image quality: Excellent. Bones: Visualized bones are intact. No cortical thinning or periosteal reaction to suggest osteomyeli tis. There is incidentally noted flattening of the femoral head, degenerative changes and subchondral cystic changes likely associated with congenital hip dysplasia. Soft tissues: 2 adjacent rim-enhancing, centrally intermediate density subcutaneous fluid collections overlie the right gluteus musculature. The more superior fluid collection measures approximately 4.3 x 2.9 x 4.9 cm, and the more inferior, slightly anterior fluid collection measures 2.8 x 1.9 x 3.7 c m. Punctate foci of gas are present within the superior fluid collection. There is marked subcutaneou s edema within the soft tissues overlying the right gluteus musculature and extending along the right thigh. There is no evidence for edema within the deep fascial layer. A subcentimeter rim-enhancing fluid collection is present more inferiorly tracking along the lateral rectus musculature (series 3, image 95). Multiple small dermal defects are noted suggesting prior inf ection/trauma. IMPRESSION: 1. Diffuse cellulitis with associated abscess these as above. The superior abscess contains some gas. Differential considerations include gas forming infection versus iatrogenic gas or gas introduced by the patient. 2. No findings to suggest osteomyelitis or edema within the deep fascial layer. These findings are concordant with the overnight interpretation. Dictated by: Ayana Bautsita M.D. on 11/25/2016 at 7:40 Approved by: Ayana Bautista M.D. on 11/25/2016 at 7:46
[2016-11-25] MEDS ORDERED: Vancomycin Dose per Pharmacist XX SCH (08:30)
[2016-11-25] MEDS: Sodium Chloride LOK Flush 10 mL Syringe IVFLUSH SCH ×2 (08:30→16:30)
--- NOTE | 2016-11-25 08:41 | DRSVH ---
PROCEDURE: CT LOWER EXTREMITY WITH CONTRAST ([id number]) INDICATIONS: abscesses TECHNIQUE: After the administration of intravenous contrast, 3 mm axial sections acquired of the left thigh, wit h coronal and sagittal reformats. For radiation dose reduction, the following was used: automated e xposure control, adjustment of mA and/or kV according to patient size. COMPARISON: None. FINDINGS: Image quality: Excellent. Bones: Bones are intact. No cortical thinning or periosteal reaction to suggest osteomyelitis. Soft tissues: A rim-enhancing 2.7 x 3.9 x 3.0 cm fluid collection is present within the subcutaneous tissues overlying the lateral left hip. There is diffuse associated subcutaneous edema. Subcutaneous emphysema is also present superior to the discrete rim-enhancing fluid collection. There are no findi ngs to suggest edema within the deep fascial layer. Subcutaneous edema extends inferiorly along the l ateral aspect of the left thigh. There are likely focal hypodense subcentimeter fluid collections wit hin the lateral rectus musculature in vastus medialis musculature and within the overlying fascia. IMPRESSION: 1. Cellulitis and discrete abscess of the left hip as described above. 2. Multifocal subcentimeter intramuscular abscess is within the left lateral rectus and vastus medial is musculature. These findings are concordant with the overnight interpretation. Dictated by: Ayana Bautista M.D. on 11/25/2016 at 8:37 Approved by: Ayana Bautista M.D. on 11/25/2016 at 8:40
--- NOTE | 2016-11-25 09:04 | CONS ---
[address] [address] CONSULTATION REPORT PATIENT: SINTIA OJEDA : 1970 MR#: [id number] ADMIT: 11/25/2016 JOB ID: [id number] DATE OF SERVICE: 11/25/2016 SURGICAL CONSULTATION: CHIEF COMPLAINT: Multiple abscesses. HISTORY OF PRESENT ILLNESS: The patient is a 45-year-old male who presented to the emergency department last night due to recurrent abscesses. The patient has a history of IV drug abuse and history of MRSA who has been I and D'd several times at this institution previously. According to the notes, he just underwent I and D of three abscess[address] Dr. Tal Godwin in October and he was also I and D'd by Dr. Tal Godwin back in June of 2016 for a recurrent left thigh abscess. The patient complains of abscesses on his left deltoid region, his left lateral thigh region and possibly two abscesses along his right lateral thigh. Overnight there were CT scans done of his extremities. The patient has been admitted to the hospital service and he is currently on IV antibiotics. PAST MEDICAL HISTORY: 1. Multiple abscess status post I and D. 2. History of IV drug abuse. 3. Tonsillectomy. 4. History of MRSA. MEDICATIONS AT HOME: Include albuterol, levothyroxine and morphine. ALLERGIES: To SULFA and CODEINE, ERYTHROMYCIN BASE, PENICILLIN G and DALBAVANCIN. SOCIAL HISTORY: The patient lives in [place]. He is single. FAMILY HISTORY: Noncontributory to the current clinical situation. REVIEW OF SYSTEMS: Positive for the multiple abscesses which are causing pain. PHYSICAL EXAMINATION: The patient is currently in the hospital bed in no acute distress. Temperature is 36.7, blood pressure 142/77, pulse is 79, respirations are 18. Head is normocephalic, atraumatic. Neck is supple. Heart is regular. Lungs are clear. Abdomen soft and nontender. Extremities shows multiple prior I and D scars and also scabs throughout his four extremities, specifically today there is tenderness to the left deltoid region, left hip and left lateral thigh region and also along his right hip and right upper thigh region and a separate spot at the right distal thigh above the knee. They all appear to be tender with palpation without much erythema on the skin. There is no active drainage at this time. LABORATORY EXAMINATION: Last night showed a white blood count of 15, hematocrit of 30.7, platelet count is 206. Sodium was 136, potassium 3.6, creatinine 0.58. ASSESSMENT: This is a 45-year-old male with multiple abscesses, which might be recurrent. I will review his CT scans from last night. The patient is currently on IV antibiotics. We will take the patient to the operating room today for incision and drainage of these multiple abscesses.
[2016-11-25] MEDS: Heparin 5,000 Unit/mL Inj SUBQ SCH ×2 (09:32→16:49)
[2016-11-25] MEDS: Lactated Ringer's 1,000 ML IV SCH ×3 (09:32→22:32)
[2016-11-25] MEDS: Ondansetron 2 mg/mL 2 mL Inj IVPUSH PRN (11:04)
[2016-11-25] MEDS ORDERED: Dexamethasone 4 mg/mL Inj ONE (11:40)
[2016-11-25] MEDS ORDERED: Propofol 10,000 mCg/mL 20 mL Inj ONE (11:40)
[2016-11-25] MEDS ORDERED: HYDROmorphone 2 mg/mL Inj ONE (11:40)
[2016-11-25] MEDS ORDERED: fentaNYL-PF 50 mCg/mL 2 mL Inj ONE (11:40)
--- NOTE | 2016-11-25 13:04 | PCM.HPANE ---
Patient Data Date of Service: November 25, 2016 Surgeon Admitting Provider:Carl Wood MD Attending Provider:Carl Wood MD Primary Care Physician:Collin Garcia MD Other Provider: Reason for Visit Multiple Deep Tissue Abscess Ht/WT & BMI Height (Feet): 5 Height (Inches): 10.00 Weight (Kilograms): 101.900 Body Mass Index 32.16 Allergies Coded Allergies: Sulfa (Sulfonamide Antibiotics) (Verified Allergy, Intermediate, Rash, 03/31) STATES BLISTERS ON PENIS codeine (Verified Allergy, Mild, Rash,Itching,, 03/31/16) penicillin G (Verified Allergy, Unknown, Rash, 03/31/16) IN HIS YOUTH dalbavancin (Verified Adverse Reaction, Intermediate, Severe muscle spasms required discontinuation of infusion., 04/30/16) erythromycin base (Verified Adverse Reaction, Mild, Nausea, 03/31/16) Past Anesthesia History Anesthesia History: Denies:: Anesthesia Reactions, Fam Anesthesia Reaction, Fam Malignant Hypertherm, Malignant Hyperthermia Diabetes History Hx Diabetes?: Yes (prediabetic) Current Bedside Blood Glucose: 137 MRSA MRSA: Yes Medications Reported Medications Hydrocodone-Acetaminophen 10-325 mg 1 Each Tablet1 Tablet PO Q4H PRN For Pain Ref 0 10/24/16 Albuterol HFA (Proair HFA)8.5 Gm Hfa.aer.ad2 Puffs INHALATION Q4H PRN For Shortness of Breath #1 INHALER 03/02/16 Levothyroxine 150 Mcg [id number] Mcg PO QAM #90 03/02/16 Morphine Sulfate ER 100 Mg [id number] Mg PO BID #60 03/02/16 Discontinued Scripts Cephalexin (Keflex)500 Mg [id number] Mg PO QID 14 Days Ref 0 Prov:Aida Muñoz MD 10/27/16 Amlodipine 5 Mg Tablet5 Mg PO DAILY 30 Days Prov:Guy Herrera DO 06/29/16 History History of ENT Problems?: No HEENT History: Denies:: Abnormal Airway Denture Type: None Teeth Condition: Tooth Decay Hx of Heart Problems?: Yes Cardiovascular History: Positive for:: Hypertension Denies:: Cardiac Surgery Chest Pain Congestive Heart Failure Edema Heart Murmur Irregular Heartbeat Pacemaker Thrombophlebitis Hx of Respiratory Problem?: Yes Respiratory History: Positive for:: Pneumonia Denies:: Asthma COPD Chest Surgery Dyspnea Emphysema Hemoptysis Tuberculosis Hx Neurologic Problems?: No Neurological History: Positive for:: Headaches Denies:: Alzheimer's Disease CVA Dementia Dizziness Parkinson's Disease Seizures Hx of GI Problems?: No Hx of Problems?: No Genitourinary History: Denies:: HX of Hemodialysis Kidney Stones Urinary Tract Infection HX of Peritoneal Dialysis: No Male Hx: Denies:: Prostate Problems Scrotal Mass Testicular Surgery Hx Musculoskeletal Problems?: No Musculoskeletal History: Denies:: Back Injury Joint Replacement Musculoskeletal Trauma Hx of Psycho/Social Problems?: No Psycho Social History: Positive for:: Anxiety Denies:: Bipolar Disorder Hx Depression Suicide Attempt Hx Surgeries?: Yes (tonsilectomy) Hx Any Other Health Problems?: Yes Other History: Positive for:: Hospitalization (I&D of abscesses) Thyroid Disease Denies:: Cancer Endocrine Disease History Blood Transfusions: Positive for:: Accept Blood Products? Denies:: Blood Transfuse Reaction Blood Transfusions Hx Diabetes: Yes (prediabetic)Bedside Blood Glucose: 137 Hx Alcohol Use: NoHx Substance Use: Yes (Heroin) Smoking Status: Current Every Day Smoker Have You Smoked inLast 12 mo: YesApprox How Many Cigarettes/day: 10/day Stop/Bang Treated for Sleep Apnea?: No Do You Have a CPAP Machine?: No S-Snoring: Do You Snore Loudly: Yes T-Tired: feel tired, fatigued: No O-Obsered: Observed not breath: No P-Blood Pressure: treated: Yes B- Body Mass Index > 35 kg/m2: No A- Age over 50: No N- Neck Large Circumference: No G- Gender Male: Yes QASIM Total Score: 3 QASIM Risk Assessment: Low Risk, <3 Yes Risk Assessment Category Category 1A: Patient has history of documented sleep apnea, and HAS NOT received any narcotic, sedative or anesthesia administration during this stay. Category 1B: Patient has history of documented sleep apnea, and HAS received any narcotic , sedative or anesthesia administration during this stay Category 2: Patient has SUSPECTED Obstructive Sleep Apnea, and HAS received any narcotic , sedative or anesthesia administration during this stay. Category 3: Patient has SUSPECTED Obstructive Sleep Apnea and HAS NOT received narcotic, sedative or anesthesia administration during this stay. Category 4: Outpatient in Procedural Areas with known sleep apnea or who screen positive for High Risk via the STOP/BANG questionnaire. Exam Exam Vital Signs Vital Signs Date Time Temp Pulse Resp B/P Pulse Ox O2 Delivery O2 Flow Rate FiO2 11/25/16 09:38 36.8 82 18 137/80 97 Room Air 11/25/16 09:11 78 11/25/16 05:55 79 11/25/16 05:29 36.7 79 18 142/77 97 Room Air General Appearance: Alert, Oriented X3, Cooperative, No Acute Distress HEENT/AIRWAY: MP 2, Neck Movement (normal), Mouth Opening (normal) Lungs: Clear to Auscultation, Normal Air Movement Heart: Exam Unremarkable, Regular Rate/Rhythm, No Murmurs/Rubs/Gallops Meds/Labs/Diagnostics Admission Meds Current Medications Vancomycin HCl 2000 mg/Sodium Chloride 500 ml @ 250 mls/hr ONCE ONCE IV Last administered on 11/25/16 04:31; Start 11/25/16 at 04:05; Stop 11/25/16 at 06:04; Status DC Ceftriaxone Sodium/Dextrose/ Water (Rocephin Inj/ D5W Minibag Plus) 50 ml @ 100 mls/hr ONCE ONCE IV Last administered on 11/25/16 05:17; Start 11/25/16 at 04:25; Stop 11/25/16 at 04:54; Status DC Heparin Sodium (Porcine) 5000 unit 5,000 unit Q8 SUBQ Last administered on 09:32; Start 11/25/16 at 08:30 Lactated Ringer's 1,000 ml @ 125 mls/hr Q8H IV Last administered on 11/25/16 09:32; Start 11/25/16 at 04:21 Sodium Chloride (Normal Saline) 1,000 ml @ 0 mls/hr Q0M ONCE IV Last administered on 11/25/16 04:31; Start 11/25/16 at 04:25; Stop 11/25/16 at 04:26; Status DC Bedside Blood Glucose: 137 Labs Test 11/25/16 02:00 White Blood Count 15.1th/mm3 (3.8-10.1) Red Blood Count 3.90mil/mm3 (4.40-5.80) Hemoglobin 9.8g/dL (13.8-17.2) Hematocrit 30.7% (41.0-50.0) Mean Corpuscular Volume 78.7fL (81-100) Mean Corpuscular Hemoglobin 25.1pg (27.0-35.0) Mean Corpuscular Hemoglobin Concent 31.9% (32.0-37.0) Red Cell Distribution Width 16.1% (12.3-15.4) Platelet Count 206bil/L (150-400) Neutrophils (%) (Auto) 79.3% (40-74) Lymphocytes (%) (Auto) 11.9% (14-46) Monocytes (%) (Auto) 5.6% (4-12) Eosinophils (%) (Auto) 1.4% (0-5) Basophils (%) (Auto) 0.5% (0-3) Band Neutrophils % 1% (1-5) Sodium Level 134mEq/L (134-144) Potassium Level 3.6mEq/L (3.5-5.2) Chloride Level 92mEq/L (97-108) Carbon Dioxide Level 24mmol/L (18-29) Blood Urea Nitrogen 11mg/dL (6-24) Creatinine 0.58mg/dL (0.76-1.27) Estimat Glomerular Filtration Rate 160mL/min (>59) Glucose Level 139mg/dL (60-99) Lactic Acid Level 1.2mmol/L (0.4-2.0) Calcium Level 8.5mg/dL (8.5-10.1) Magnesium Level 1.8mg/dL (1.6-2.6) Total Bilirubin 0.2mg/dL (0.0-1.2) Aspartate Amino Transf (AST/SGOT) 8U/L (0-50) Alanine Aminotransferase (ALT/SGPT) 5U/L (0-44) Alkaline Phosphatase 84U/L (25-150) Total Protein 6.9g/dL (6.4-8.4) Albumin 3.2g/dL (3.4-5.0) Plan Impression Patient chart reviewed, patient interviewed and anesthestic plan with risks, benefits, and alternatives discussed, and informed consent obtained. NPO per Anesth. Guidelines: Yes ASA Physical Status: ASA3 Severe Disease Anesthetic Plan: GA Bene/Risks/Altern/Consents: Yes HP Complete Prior to Induction: Yes Bryant Hooker MD November 25, 2016 13:04
[2016-11-25] MEDS ORDERED: Lactated Ringer's 1,000 ML IV ONE (13:08)
[2016-11-25] MEDS: Vancomycin Inj 1,500 MG in 0.9% Sodium Chloride 500 ML IV SCH ×2 (13:15→13:30)
[2016-11-25] MEDS ORDERED: Bupivacaine-MPF 0.25%/EPI 30 mL Inj INJ ONE (13:34)
[2016-11-25] MEDS ORDERED: Lactated Ringer's 1,000 ML IV SCH (13:49)
[2016-11-25] MEDS ORDERED: Lactated Ringer's 500 ML IV PRN (13:49)
[2016-11-25] MEDS ORDERED: Labetalol 5 mg/mL 4 mL Inj IV PRN (13:50)
[2016-11-25] MEDS ORDERED: Atropine 0.4 mg/mL Inj IVPUSH PRN (13:50)
[2016-11-25] MEDS ORDERED: Dexamethasone 4 mg/mL Inj IVPUSH PRN (13:50)
[2016-11-25] MEDS ORDERED: Phenylephrine 10,000 mCg/mL Inj IVPUSH PRN (13:50)
[2016-11-25] MEDS ORDERED: MetoCLOpramide 5 mg/mL 2 mL Inj IVPUSH PRN (13:50)
[2016-11-25] MEDS ORDERED: hydrALAZINE 20 mg/mL Inj IVPUSH PRN (13:50)
[2016-11-25] MEDS ORDERED: EPHEDrine Sulfate 50 mg/mL Inj IVPUSH PRN (13:50)
--- NOTE | 2016-11-25 13:50 | NUR ---
SW - Attempted Screening SW attempted to meet with pt for initial screening but pt was off the floor for surgery. SW will reattempt tomorrow 11/26. PAULA Fuller
--- NOTE | 2016-11-25 15:01 | PCM.ANEP1 ---
Post Anesthesia Phase 1 PACU Phase 1 Assessment Date of Service: November 25, 2016 Vital Signs 36.4 168/63 89 11 98% ra Anesthetic Administered: GA Level of Alertness: Sleepy, easy to arouse PATEL's with Equal Strength: Yes Pain: No Pain Scale Score: 0 Nausea or Vomiting: No Cardiovascular Function and Hy: Yes Oxygen Delivery: Room Air Lungs: Clear to Auscultation, Normal Air Movement Complications: No Follow up Care: No Patient Instructions Provided: Yes Bryant Hooker MD November 25, 2016 15:01
[2016-11-25] MEDS: fentaNYL-PF 50 mCg/mL 2 mL Inj IVPUSH PRN ×3 (15:16→15:30)
--- NOTE | 2016-11-25 15:31 | OP ---
[address] [address] OPERATIVE REPORT PATIENT: SINTIA OJEDA : 1970 MR#: [id number] ADMIT: 11/25/2016 JOB ID: [id number] DATE OF SURGERY: 11/25/2016 SURGEON: Stanislaw Dale MD. RETAIL SUPPORT SPECIALIST: None. ANESTHESIA: General. PREOPERATIVE DIAGNOSIS(ES): Multiple abscesses of the left deltoid, left hip, right hip, and right distal thigh. POSTOPERATIVE DIAGNOSIS(ES): Multiple abscesses of the left deltoid, left hip, right hip, and right distal thigh. PROCEDURE: Incision and drainage of left deltoid, left hip, right hip, and right distal thigh abscesses. INDICATION FOR PROCEDURE: The patient is a 45-year-old male with multiple subcutaneous abscesses. The patient has had multiple prior I and D's and history of MRSA. PRINCIPAL FINDING: The left deltoid incision was 9 cm in dimension, the left hip incision was in a cruciate fashion and measured 6 x 7 cm in dimension, the right hip incision was T-shaped and measured 6 x 9 cm in dimension and the right distal thigh incision was 6 cm. PROCEDURE COURSE: The patient was brought to the operating table and was provided with general anesthesia. The patient has already been receiving IV antibiotics and he was provided with SCDs. A time-out was performed. We started with the left side of his body. The patient's left deltoid and left hip region was exposed and prepped and draped in the usual sterile fashion. Using a syringe and an 18-gauge, we aspirated purulence out of the left deltoid subcutaneous abscess. A longitudinal incision was planned and local anesthetic was injected and an incision was made using the scalpel. The total incision was approximately 9 cm. We drained a large amount of pus and the entire abscess cavity was unroofed. There is no undrained abscesses with blunt probing by my finger or by a Clarissa clamp. Copious irrigation was carried out and the hemostasis within the abscess cavity was controlled using electrocautery. Next, we turned our attention to the left hip region. Again using a syringe and the needle, we aspirated pus directly over the most prominent position of the abscess. A longitudinal incision was planned. A local anesthetic was injected and then the incision was made using the scalpel. Once the abscess cavity was entered and identified, the cavity actually extended more medial lateral rather than cephalad and caudad. Therefore, a cruciate incision was added to help with maximal exposure of the abscess cavity. This left hip incision measured 6 cm x cm in dimension. The abscess cavity was irrigated out. Hemostasis was controlled using cautery. Both the left deltoid and the left hip abscess cavities were then subsequently packed with 2-inch Arben gauze in a wet-to-dry fashion. Next, we turned our attention to his right hip and his right distal thigh. The area was prepped and draped in the usual sterile fashion. Again using a syringe and 18-gauge needle, we aspirated pus very easily from the right hip abscess. There was actually two prominent visible bumps on the right hip. An incision that connected both visible bumps were then planned and local anesthetic was injected and an incision was made using the scalpel. Both abscesses were initially drained by the same incision, however, once I got into the more cephalad cavity, it actually showed cephalad extension. Therefore, a T-shaped incision was added to help maximal exposure of the cephalad abscess. This T-shaped incision measured 6 x 9 cm at the right hip. Abscess cavities were irrigated out and hemostasis was controlled. Next, we turned our attention to the right distal thigh abscess. Again using a needle and syringe, we aspirated pus very easily. A longitudinal incision was planned. Local anesthetic was injected and the incision was made using the scalpel. Subcutaneous abscess cavity was encountered and drained. The incision was 6 cm in dimension. This abscess was above the fascia and did not go beneath the fascia. Again, after copious irrigation, hemostasis was verified. Both the right hip and the right distal thigh wounds were packed with Arben in a wet-to-dry fashion. Sterile dressings were then placed on all four wounds. By the end of procedure, needle counts and sponge counts were correct. The patient was then extubated and taken to the recovery room in stable satisfactory condition.
--- NOTE | 2016-11-25 18:30 | NUR ---
Pain Patient reporting burning pain of "07/01". Requesting BELT NOTCHER for pain control. Surgeon and Hospitalist notified.
[2016-11-25] MEDS: HYDROmorphone PCA 0.2 mg/mL 30 mL Inj IV PRN (19:36)
[2016-11-26] VITALS (13 sets, daily range): BP systolic 121–147; BP diastolic 68–88; PULSE 60–84; RESP 14–20; O2SAT 94–99
[2016-11-26] MEDS: Sodium Chloride LOK Flush 10 mL Syringe IVFLUSH SCH ×3 (00:35→16:23)
[2016-11-26] MEDS: Heparin 5,000 Unit/mL Inj SUBQ SCH ×3 (00:35→16:23)
[2016-11-26] MEDS: Vancomycin Inj 1,500 MG in 0.9% Sodium Chloride 500 ML IV SCH ×2 (00:36→12:16)
[2016-11-26] MEDS: HYDROmorphone PCA 0.2 mg/mL 30 mL Inj IV PRN ×6 (01:02→22:14)
[2016-11-26] MEDS: Ondansetron 2 mg/mL 2 mL Inj IVPUSH PRN (01:13)
--- NOTE | 2016-11-26 05:16 | NUR ---
Dressing Change refusal. Pt was told at beginning of shift that I would change his dressing at some point in time over the shift. Pt agreed. This Rn has offered to perform depressing change several times over the shift but Pt declines, says, "maybe later, not now". Will try once more before end of shift.
[2016-11-26 06:32] LABS: BASOPHILS % (AUTO) 0.2 % (0-3); EOSINOPHILS % (AUTO) 2.2 % (0-5); MONOCYTES % (AUTO) 4.8 % (4-12); Mean Corpuscular Hemoglobin 24.5 pg (27.0-35.0); NEUTROPHILS % (AUTO) 72.8 % (40-74); Platelet Count 173 bil/L (150-400)
[2016-11-26 06:44] LABS: Phosphorus 3.2 mg/dL (2.5-4.9)
--- NOTE | 2016-11-26 07:14 | PCM.PNSURG ---
Subjective Visit Information: Reason for Visit Multiple Deep Tissue Abscess Surgery/Surgery Date Post-Op Day # Date of Admission: November 25, 2016 at 04:19 Hospital Day # Subjective: c/o pain postop, on a CUSTOMER DEVELOPMENT MANAGER, tolerating diet, operative findings (I & D x4) discussed with pt Objective Vital Sign- Last 8 Hours Date Time Temp Pulse Resp B/P Pulse Ox O2 Delivery O2 Flow Rate FiO2 11/26/16 06:34 18 98 11/26/16 05:50 36.7 73 18 147/88 99 Room Air 11/26/16 05:34 84 Intake and Output- Last 8 Hour 11/26/16 Cumulative From/Thru 07:00 11/24/16 23:47 - 11/26/16 06:43 Intake Total 2846 ml 5200 ml Output Total 1575 ml 4375 ml Balance 1271 ml 825 ml Intake Oral 726 ml 1480 ml IV Total 2120 ml 3720 ml Output Urine Total 1575 ml 4375 ml # Bowel Movements 0 0 Result Diagram: 11/26/16 0610 11/26/16 0610 Assessment & Plan Impression POD #1 s/p I & D of L deltoid, L hip, R hip, and R distal thigh abscesses Poor pain control Hx of IVDA Hx of MRSA Problems: Plan Pain control via CUSTOMER DEVELOPMENT MANAGER accounting tutor to see tomorrow IV abx Diet as tolerated VTE Prophylaxis: Sub-Q Heparin (Unfractionated) Resuscitation Status: CPR: Attempt Resuscitation Stanislaw Dale MD November 26, 2016 07:14
[2016-11-26] MEDS: Lactated Ringer's 1,000 ML IV SCH ×2 (08:18→16:23)
--- NOTE | 2016-11-26 10:11 | NUR ---
Social Work- Initial Assessment Data: See Initial Assessment. Pt is a 45 year old male admitted 11/25/16 for multiple abscess per H&P. Pt is readmit previously discharged 10/27/16, no needs. Pt's Pt's insurance is [employer]. Pt's PCP is Collin Garcia MD. SW met with pt at bedside regarding discharge plan, [place] independent [place] base. Pt reports he lives alone in [place] in a trailer with 3 steps to enter. Pt uses no DME at base and does not drive. Pt has no HH or SNF history. Pt has no LTC or VA benefits. Pt has no DPOA/Advance directive, declined paperwork. Pt has history of IV drug use, SW followed up regarding this. Pt states he is not currently using, despite abscesses. Pt declined CD assessment. Pt declined outpt CD resources. Pt states he will likley discharge home via friend. No further needs assessed. SW will continue to follow. Assessment: Pt who [place] independent [place]. Plan: Pt declined CD assessment. Pt declined outpt CD resources. Pt to discharge home via POV. SW will continue to follow. PAULA Fuller Addendum: 11/26/16 at 1018 by BRYN LEAVITT SS Amended: Links added.
--- NOTE | 2016-11-26 11:34 | DRSVH ---
PROCEDURE: CT ABDOMEN AND PELVIS WITH CONTRAST ([id number]) INDICATIONS: s/p colostomy, r/o abscess TECHNIQUE: After the administration of intravenous contrast, 5 mm thick sections acquired from the diaphragm to the symphysis. 5 mm coronal and sagittal reformats were acquired. For radiation dose reduction, the following was used: automated exposure control, adjustment of mA and/or kV according to patient siz e. COMPARISON: None. FINDINGS: Image quality: Excellent. ABDOMEN: Lung bases: Mild dependent bilateral lower lobe atelectasis. Lung bases are otherwise clear. Heart size is normal. Solid organs: Liver is normal in size and enhancement. Spleen is mildly enlarged measuring 14 cm, a nd is otherwise within normal limits. Gallbladder is contracted. Biliary system is non dilated. Light creas enhances normally. No adrenal nodules. Kidneys demonstrate normal size and enhancement, witho ut hydronephrosis. Peritoneum and bowel: Bowel loops demonstrate normal wall thickness and caliber. No free fluid or a ir. Normal appendix. Nodes and vessels: No retroperitoneal or mesenteric adenopathy by size criteria. Aorta and inferior vena cava are normal in size. Miscellaneous: No ventral hernias. PELVIS: Genitourinary: Bladder wall thickness is normal. Miscellaneous: No inguinal hernia. Pathologic bilateral inguinal adenopathy is present, measuring 16 mm short axis on the right, and 14 mm short axis on the left. Skin and subcutaneous defect overlying the right proximal thigh laterally is present measuring 63 mm, with surrounding fat stranding. Bones: No suspicious bony lesions. No vertebral body compression fractures. IMPRESSION: 1. No evidence of abscess. Right proximal thigh wound with surrounding cellulitis. 2. Bilateral inguinal adenopathy, presumably reactive. 3. Splenomegaly. Dictated by: Minda Valentine M.D. on 11/26/2016 at 11:29 Approved by: Minda Valentine M.D. on 11/26/2016 at 11:32
--- NOTE | 2016-11-26 11:46 | NUR ---
Pain Patient c/o 9/10 pain in abscess areas, with the greatest pain being in his R hip. Patient on dilaudid PULP MAKER and has received loading dose x3 with minimal effect. MD notified and will increase pain medication.
--- NOTE | 2016-11-26 12:01 | PCM.PNMED ---
Subjective Date of Service November 26, 2016 Subjective pt had I & D four sites, tolerated well, now on CREDIT RESOLUTION REPRESENTATIVE dilaudid, pain not controlled persistently denied drug use. afebrile, Exam Vital Signs Vital Sign - Last Date Time Temp Pulse Resp B/P Pulse Ox O2 Delivery O2 Flow Rate FiO2 11/26/16 10:06 60 11/26/16 09:36 36.8 20 143/77 97 Room Air Intake and Output 11/25/16 11/25/16 11/26/16 Cumulative From/Thru 15:00 23:00 07:00 11/24/16 23:47 - 11/26/16 06:43 Intake Total 500 ml 854 ml 2846 ml 5200 ml Output Total 650 ml 1450 ml 1575 ml 4375 ml Balance -150 ml -596 ml 1271 ml 825 ml Intake Oral 0 ml 754 ml 726 ml 1480 ml IV Total 500 ml 100 ml 2120 ml 3720 ml Output Urine Total 650 ml 1450 ml 1575 ml 4375 ml # Bowel Movements 0 0 0 Exam NAD, comfortably laying down on the bed no JVD, MMM, no LAD RRR, nl s1, s2 no mrg CTAB, no w,c S,ND,NT,normoactive BS+ warm, no edema, pulses 2/2 MSK: s/p I & D of L deltoid, L hip, R hip, and R distal thigh abscesses IVs and Medications Medications Reviewed: Medications were reviewed in detail Lab and Diagnostics Result Diagram: 11/26/16 0610 11/26/16 0610 X-Rays, CTs and MRIs PROCEDURE: CT ABDOMEN AND PELVIS WITH CONTRAST ([id number]) INDICATIONS: s/p colostomy, r/o abscess TECHNIQUE: After the administration of intravenous contrast, 5 mm thick sections acquired from the diaphragm to the symphysis. 5 mm coronal and sagittal reformats were acquired. For radiation dose reduction, the following was used: automated exposure control, adjustment of mA and/or kV according to patient size. COMPARISON: None. FINDINGS: Image quality: Excellent. ABDOMEN: Lung bases: Mild dependent bilateral lower lobe atelectasis. Lung bases are otherwise clear. Heart size is normal. Solid organs: Liver is normal in size and enhancement. Spleen is mildly enlarged measuring 14 cm, and is otherwise within normal limits. Gallbladder is contracted. Biliary system is non dilated. Pancreas enhances normally. No adrenal nodules. Kidneys demonstrate normal size and enhancement, without hydronephrosis. Peritoneum and bowel: Bowel loops demonstrate normal wall thickness and caliber. No free fluid or air. Normal appendix. Nodes and vessels: No retroperitoneal or mesenteric adenopathy by size criteria. Aorta and inferior vena cava are normal in size. Miscellaneous: No ventral hernias. PELVIS: Genitourinary: Bladder wall thickness is normal. Miscellaneous: No inguinal hernia. Pathologic bilateral inguinal adenopathy is present, measuring 16 mm short axis on the right, and 14 mm short axis on the left. Skin and subcutaneous defect overlying the right proximal thigh laterally is present measuring 63 mm, with surrounding fat stranding. Bones: No suspicious bony lesions. No vertebral body compression fractures. IMPRESSION: 1. No evidence of abscess. Right proximal thigh wound with surrounding cellulitis. 2. Bilateral inguinal adenopathy, presumably reactive. 3. Splenomegaly. Dictated by: Minda Valentine M.D. on 11/26/2016 at 11:29 Approved by: Minda Valentine M.D. on 11/26/2016 at 11:32 PROCEDURE: CT UPPER EXTREMITY LT W CON INDICATIONS: abscesses TECHNIQUE: After the administration of intravenous contrast, 3 mm axial sections acquired of the left upper extremity, with coronal and sagittal reformats. For radiation dose reduction, the following was used: automated exposure control, adjustment of mA and/or kV according to patient size. COMPARISON: None. FINDINGS: Image quality: Excellent. Bones: No cortical thinning or periosteal reaction. No fracture or dislocation. Soft tissues: There is a rim-enhancing fluid collection which is intermediate density centrally which measures 3.8 x 1.9 x 8.1 cm. This abuts the lateral aspect of the left deltoid musculature. There is overlying subcutaneous edema. Just superior to this rim-enhancing fluid collection is a 7 mm diameter rim enhancing centrally intermediate density fluid collection with a punctate focus of gas present (series 4, image 18). A complex, enhancing fluid collection with a central focus of gas is present overlying the triceps. This measures 3.1 x 2.1 x 4.4 cm. There are multiple shotty left axillary lymph nodes, some of which are pathologically enlarged. IMPRESSION: 1. 3 discrete enhancing fluid collections, 2 of which contain punctate foci of gas. The superior collection measures less than 1 cm in diameter and is likely not amenable to her percutaneous drainage. The inferior collection has a complex appearance suggesting a phlegmon. The middle fluid collection overlying the deltoid musculature may be amenable to percutaneous drainage. 2. No findings to suggest osteomyelitis. 3. Axillary adenopathy, likely infectious in nature. These findings are concordant with the overnight interpretation. Dictated by: Ayana Bautista M.D. on 11/25/2016 at 7:34 Approved by: Ayana Bautista M.D. on 11/25/2016 at 7:40 Assessment & Plan Fred Salgado is a 45 year old male with Hypothyroid, IV heroin abuse, MRSA and recurrent abscess presents to [facility] emergency department complaining of multiple abscesses 1. Sepsis. Present on admission, Meeting criteria with tachycardia and Leukocytosis with skin infections as source. Lactic acid normal. source: abscess /cellulitis, -HD stable, afebrile, clinically stable, -trends fever curve, lactate, PCT 2recurrent multiple skin abscess with cellulitis a/w IM heroin use although pt denied using it. last hospitalization last month, underwent surgical I&D 10/24 extensively. Patient was started with meropenem and IV vancomycin, switched to daptomycin and ciprofloxacin per ID consult. Final wound culture showed streptococcus Angionosus, staph aureus, staph epididermis, all sensitive to Keflex, plan was to continue for 14days. pt returned with same abscess again after he finished abx. 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
[2016-11-26] MEDS ORDERED: Albuterol 2.5 mg/3 mL Inhalation Solution NEB PRN (12:10)
--- NOTE | 2016-11-26 16:31 | NUR ---
Pain/Dressing change Patient continues to have 8-10/10 pain. His SUBSTITUTE NURSE dose was increased to opioid tolerant dosing with minimal effect. Patient refusing to let nursing change dressings due to pain. Dr. Chito kinney.
[2016-11-26] MEDS ORDERED: Vancomycin Serum Trough XX ONE (23:00)
[2016-11-27] VITALS (15 sets, daily range): BP systolic 117–156; BP diastolic 70–85; PULSE 57–71; RESP 16–18; O2SAT 96–99
[2016-11-27] MEDS: Vancomycin Inj 1,500 MG in 0.9% Sodium Chloride 500 ML IV SCH (00:12)
[2016-11-27] MEDS: Sodium Chloride LOK Flush 10 mL Syringe IVFLUSH SCH ×3 (00:13→16:30)
[2016-11-27] MEDS: Heparin 5,000 Unit/mL Inj SUBQ SCH ×3 (00:13→17:20)
[2016-11-27] MEDS: HYDROmorphone PCA 0.2 mg/mL 30 mL Inj IV PRN ×6 (01:39→18:52)
[2016-11-27] MEDS: Lactated Ringer's 1,000 ML IV SCH (02:20)
[2016-11-27 05:33] LABS: BASOPHILS % (AUTO) 0.3 % (0-3); EOSINOPHILS % (AUTO) 3.3 % (0-5); MONOCYTES % (AUTO) 4.6 % (4-12); Mean Corpuscular Hemoglobin 24.6 pg (27.0-35.0); Mean Corpuscular Volume 80.8 fL (81-100); NEUTROPHILS % (AUTO) 66.8 % (40-74); Platelet Count 174 bil/L (150-400)
[2016-11-27 06:03] LABS: Magnesium 1.9 mg/dL (1.6-2.6); Phosphorus 4.2 mg/dL (2.5-4.9)
[2016-11-27] MEDS: Ondansetron 2 mg/mL 2 mL Inj IVPUSH PRN ×2 (06:13→12:05)
--- NOTE | 2016-11-27 06:14 | PCM.PHAPRO ---
Progress Date of Service: November 27, 2016 Multiple abscess Vancomycin Management Per Pharmacy: Indication: Cellulitis/Abscess in a patient with history of IV drug use Goal Trough: 10-15 mcg/dL Age: 45 yo Labs: WBC: 15.1->8.6 SrCr: 0.58->0.58 mg/dL Lactate: 1.2 Vanco Trough: 9.0 (subtherapeutic) Est CrCl: ~120 mL/min Micro: Hx of MRSA, MSSA, and strep in wound cultures, wound culture currently w / gram pos cocci (ID pending) Additional Abx: Rocephin IV Nephrotoxic Risk Factors: None Vitals: All stable Recommendation: Vancomycin trough = 9.0 (minimally subtherapeutic), therefore will change to vancomycin 1000 mg IV Q8h which is the same daily total dose however will allow for a higher trough due to more frequent dosing Vanco Trough: Next due on 11/28 @ 0730 prior to 4th adjusted dose Pharmacy to continue to monitor and adjust dose as needed. Thank You, Dinora Cummings, Pharm D. Dinora Cummings November 27, 2016 06:14
--- NOTE | 2016-11-27 06:41 | NUR ---
TOOL ROOM LATHE OPERATOR use Pt continues to request TOOL ROOM LATHE OPERATOR boluses, had a total of 5 boluses spread out over shift. Pt only observed sleeping for 2 hours out of shift at the most. Pt has TOOL ROOM LATHE OPERATOR in hand at all times and has pressed the button a total of 139 times over the shift and received a total of 22.3 mg. Pt reports pain to be very bad and grimaces with any sort of movement. Pt declining to have his dressing changed.
--- NOTE | 2016-11-27 07:22 | PCM.PNMED ---
Subjective Date of Service November 27, 2016 Subjective No specific problems since yesterday. Patient refusing to do dressing changes at time, I spoke with him about this, he says he will be more compliant. Exam Vital Signs Vital Sign - Last Date Time Temp Pulse Resp B/P Pulse Ox O2 Delivery O2 Flow Rate FiO2 11/27/16 06:21 18 98 11/27/16 03:25 36.8 60 117/70 Room Air Intake and Output 11/26/16 11/26/16 11/27/16 Cumulative From/Thru 15:00 23:00 07:00 11/24/16 23:47 - 11/27/16 06:18 Intake Total 3480 ml 3079 ml 52455 ml Output Total 1400 ml 1400 ml 7175 ml Balance 2080 ml 1679 ml 4584 ml Intake Oral 1880 ml 1200 ml 4560 ml IV Total 1600 ml 1879 ml 7199 ml Output Urine Total 1400 ml 1400 ml 7175 ml # Bowel Movements 0 0 0 Exam Eyes; mark, eom intact ENMT; well hydrated, no lessions CV; no murmur, regular Resp; Clear anteriorly GI; non tender Skin; bandges over 4 wounds in question, all clean and dry Neuro; CN 2-12 intact, A&O x 3 Lab and Diagnostics Result Diagram: 11/27/16 0511/27/16 05 X-Rays, CTs and MRIs PROCEDURE: CT ABDOMEN AND PELVIS WITH CONTRAST ([id number]) INDICATIONS: s/p colostomy, r/o abscess TECHNIQUE: After the administration of intravenous contrast, 5 mm thick sections acquired from the diaphragm to the symphysis. 5 mm coronal and sagittal reformats were acquired. For radiation dose reduction, the following was used: automated exposure control, adjustment of mA and/or kV according to patient size. COMPARISON: None. FINDINGS: Image quality: Excellent. ABDOMEN: Lung bases: Mild dependent bilateral lower lobe atelectasis. Lung bases are otherwise clear. Heart size is normal. Solid organs: Liver is normal in size and enhancement. Spleen is mildly enlarged measuring 14 cm, and is otherwise within normal limits. Gallbladder is contracted. Biliary system is non dilated. Pancreas enhances normally. No adrenal nodules. Kidneys demonstrate normal size and enhancement, without hydronephrosis. Peritoneum and bowel: Bowel loops demonstrate normal wall thickness and caliber. No free fluid or air. Normal appendix. Nodes and vessels: No retroperitoneal or mesenteric adenopathy by size criteria. Aorta and inferior vena cava are normal in size. Miscellaneous: No ventral hernias. PELVIS: Genitourinary: Bladder wall thickness is normal. Miscellaneous: No inguinal hernia. Pathologic bilateral inguinal adenopathy is present, measuring 16 mm short axis on the right, and 14 mm short axis on the left. Skin and subcutaneous defect overlying the right proximal thigh laterally is present measuring 63 mm, with surrounding fat stranding. Bones: No suspicious bony lesions. No vertebral body compression fractures. IMPRESSION: 1. No evidence of abscess. Right proximal thigh wound with surrounding cellulitis. 2. Bilateral inguinal adenopathy, presumably reactive. 3. Splenomegaly. Dictated by: Minda Valentine M.D. on 11/26/2016 at 11:29 Approved by: Minda Valentine M.D. on 11/26/2016 at 11:32 PROCEDURE: CT UPPER EXTREMITY LT W CON INDICATIONS: abscesses TECHNIQUE: After the administration of intravenous contrast, 3 mm axial sections acquired of the left upper extremity, with coronal and sagittal reformats. For radiation dose reduction, the following was used: automated exposure control, adjustment of mA and/or kV according to patient size. COMPARISON: None. FINDINGS: Image quality: Excellent. Bones: No cortical thinning or periosteal reaction. No fracture or dislocation. Soft tissues: There is a rim-enhancing fluid collection which is intermediate density centrally which measures 3.8 x 1.9 x 8.1 cm. This abuts the lateral aspect of the left deltoid musculature. There is overlying subcutaneous edema. Just superior to this rim-enhancing fluid collection is a 7 mm diameter rim enhancing centrally intermediate density fluid collection with a punctate focus of gas present (series 4, image 18). A complex, enhancing fluid collection with a central focus of gas is present overlying the triceps. This measures 3.1 x 2.1 x 4.4 cm. There are multiple shotty left axillary lymph nodes, some of which are pathologically enlarged. IMPRESSION: 1. 3 discrete enhancing fluid collections, 2 of which contain punctate foci of gas. The superior collection measures less than 1 cm in diameter and is likely not amenable to her percutaneous drainage. The inferior collection has a complex appearance suggesting a phlegmon. The middle fluid collection overlying the deltoid musculature may be amenable to percutaneous drainage. 2. No findings to suggest osteomyelitis. 3. Axillary adenopathy, likely infectious in nature. These findings are concordant with the overnight interpretation. Dictated by: Ayana Bautista M.D. on 11/25/2016 at 7:34 Approved by: Ayana Bautista M.D. on 11/25/2016 at 7:40 Assessment & Plan Fred Salgado is a 45 year old male with Hypothyroid, IV heroin abuse, MRSA and recurrent abscess presents to [facility] emergency department complaining of multiple abscesses 1. Sepsis. Present on admission, resolved -Meeting criteria with tachycardia and Leukocytosis with skin infections as source. Lactic acid normal. source: abscess/cellulitis, 2.Acute Skin Abscesses, poa, active -recurrent multiple skin abscess with cellulitis a/w IM heroin use although pt denied using it. last hospitalization last month, underwent surgical I&D 10/24 extensively. Patient was started with meropenem and IV vancomycin, switched to daptomycin and ciprofloxacin per ID consult. Final wound culture showed streptococcus Angionosus, staph aureus, staph epididermis, all sensitive to Keflex, plan was to continue for 14days. pt returned with same abscess again after he finished abx. CT 11/25 showed LUE abscess, no OM, s/p I & D of L deltoid, L hip, R hip, and R distal thigh abscesses by 11/25 - continue Vancomycin IV - ID consult ordered -awaits cultures from surgical wound, BCX ngtd -police matron tomorrow 3. Acute Pain, poa, active -continue dilaudid IV with TRIBAL DELEGATE -prn IV dilaudid for wound change 3 Hypothyroidism,poa, chronic - continuing Synthroid 4 Heroine Abuse,poa, chronic - appreciate willow worker to provide resources 5 Nicotine dependence, poa, active -Cessation discussed and encouraged, -Nicotine patch on request dvt ppx: HSQ q8h diet: general dispo: pending, 3-4more days, VTE Prophylaxis: Sub-Q Heparin (Unfractionated) Resuscitation Status: CPR: Attempt Resuscitation Daija Márquez MD November 27, 2016 07:22
[2016-11-27] MEDS: Dextrose 5% 500 ML IV SCH (08:19)
[2016-11-27] MEDS: Vancomycin 1 Gm/200 mL NS Premix IV SCH ×2 (08:20→17:20)
--- NOTE | 2016-11-27 09:17 | PCM.PNSURG ---
Subjective Date of Service: November 27, 2016 Date of Service: November 27, 2016 Visit Information: Reason for Visit Multiple Deep Tissue Abscess Surgery/Surgery Date Post-Op Day # Date of Admission: November 25, 2016 at 04:19 Hospital Day # Subjective: Still complains of significant pain at all wound sites, especially right hip wound site. Refused dressing pattern changer and repairer the weekend. Still using CAPACITOR INSPECTOR. Tolerating diet. Discussed with patient the importance of dressing change, agrees to accept wound care visit dressing change today. Leukocytosis resolved. Afebrile. Postop General: No Shortness of Breath, No Chest Pain Gastrointestinal: Tolerating Oral Feedings, Complains of Nausea (on movement with pain) Pain Management: CAPACITOR INSPECTOR without Basal Objective Vital Sign- Last 8 Hours Date Time Temp Pulse Resp B/P Pulse Ox O2 Delivery O2 Flow Rate FiO2 11/27/16 08:31 18 11/27/16 06:21 18 98 11/27/16 03:25 36.8 60 18 117/70 96 Room Air Intake and Output- Last 8 Hour 11/27/16 Cumulative From/Thru 07:00 11/24/16 23:47 - 11/27/16 06:18 Intake Total 3079 ml 35856 ml Output Total 1400 ml 7175 ml Balance 1679 ml 4584 ml Intake Oral 1200 ml 4560 ml IV Total 1879 ml 7199 ml Output Urine Total 1400 ml 7175 ml # Bowel Movements 0 0 General: Alert, Oriented X3, Mild Distress Lungs: Clear to Auscultation, Normal Air Movement Heart: Exam Unremarkable, Regular Rate/Rhythm Abdomen: Benign, Appropriately tender (does state some mild periumbilical pain) , Non-distended, Normoactive bowel tones SURGICAL WOUND : Wound Location/Description Left deltoid wound, bandage with serosanguineous drainage, extremely tender to palpation packing in place, wound edges are pink no obvious erythema, necrosis or purulent drainage. Left hip wound, bandage with serosanguineous drainage, tender to palpation with packing in place. Wound edges are pink with no obvious erythema necrosis or purulent drainage Right distal thigh lateral wound. Bandage intact, tender to palpation, packing in place wound edges are pink with no obvious erythema necrosis some purulent drainage. Right hip wound, serosanguineous with some red tinged bloody drainage. Wound edges are pink with no obvious erythema. Extremely tender to palpation. No necrosis or purulent drainage noted. Result Diagram: 11/27/1651911/27/16519 Lab & Micro Results: Cultures and sensitivities pending Diagnostics: . CT UPPER EXTREMITY LT W CON IMPRESSION: 1. 3 discrete enhancing fluid collections, 2 of which contain punctate foci of gas. The superior collection measures less than 1 cm in diameter and is likely not amenable to her percutaneous drainage. The inferior collection has a complex appearance suggesting a phlegmon. The middle fluid collection overlying the deltoid musculature may be amenable to percutaneous drainage. 2. No findings to suggest osteomyelitis. 3. Axillary adenopathy, likely infectious in nature. Dictated by: Ayana Bautista M.D. on 11/25/2016 at 7:34 CT LOWER EXTREMITY WITH CONTRAST IMPRESSION: 1. Cellulitis and discrete abscess of the left hip as described above. 2. Multifocal subcentimeter intramuscular abscess is within the left lateral rectus and vastus medialis musculature. Dictated by: Ayana Bautista M.D. on 11/25/2016 at 8:37 CT LOWER EXTREMITY LEFT WITH CONTRAST IMPRESSION: 1. Diffuse cellulitis with associated abscess these as above. The superior abscess contains some gas. Differential considerations include gas forming infection versus iatrogenic gas or gas introduced by the patient. 2. No findings to suggest osteomyelitis or edema within the deep fascial layer. Dictated by: Ayana Bautista M.D. on 11/25/2016 at 7:40 CT ABDOMEN AND PELVIS WITH CONTRAST IMPRESSION: 1. No evidence of abscess. Right proximal thigh wound with surrounding cellulitis. 2. Bilateral inguinal adenopathy, presumably reactive. 3. Splenomegaly. Assessment & Plan Impression Assessment & Plan: 1. Incision and drainage of left deltoid, left hip, right hip, right distal thigh abscesses postoperative day 2 - History of IV drug abuse - History of MRSA - Wound care evaluation pending - Poor pain control with CAPACITOR INSPECTOR Dilaudid, when necessary IV Dilaudid for dressing change - Continue vancomycin - ID consult pending - Appropriate cultures and serologies pending - Advance diet as tolerated - PT ordered, strongly encourage ambulation - Senna twice a day scheduled - Seen by wound care following my exam who explained that there are no un- drained pockets Problems: VTE Prophylaxis: Sub-Q Heparin (Unfractionated) Resuscitation Status: CPR: Attempt Resuscitation Attending Statement: I agree with Dr. Stratton's assessment and plan. CALI STRATTON DO November 27, 2016 09:17 Stanislaw Dale MD November 28, 2016 11:56
--- NOTE | 2016-11-27 14:55 | NUR ---
Evaluation completed. Please go to "Notes" then click on "Assessments and Notes" (bottom left corner of screen). Then select appropriate discipline tab on top of screen.
[2016-11-27] MEDS: HYDROmorphone 1 mg/mL Inj IVPUSH PRN (15:12)
--- NOTE | 2016-11-27 17:56 | NUR ---
Wound Care Wound evaluation orders received, patient seen at bedside with Dr Ziegler. 45 yo male admitted to [facility] with fever and multiple abscesses requiring extensive surgical debridement 11/25. Presents with packed surgical sites at Left deltoid 7 cm x 2 cm x1.5 cm, Left thigh 6 cm x 7 cm x 2 cm, right hip, 10 cm x 6 cm x 4 cm, right thigh 7 cm x 3 cm x 4 cm. Wounds are clean and without tunneling, irrigated with saline, dressed with abd pads and tape. Patient extremely uncomfortable during dressing changes, wounds can drain to gravity with absorbent cover. Will recheck with surgery representation tomorrow.
--- NOTE | 2016-11-27 18:30 | NUR ---
Pain/Dressing change Patient reporting pain consistently at 7-9/10. Pain increases with movement and during dressing change. Patient cooperative but tearful when pain increases. Dressing change to bilateral hips, Rt thigh and Lt shoulder by wound care. No packing applied, wounds left open and covered with abd bandage.
--- NOTE | 2016-11-27 19:51 | CONS ---
[address] [address] CONSULTATION REPORT PATIENT: SINTIA OJEDA : 1970 MR#: [id number] ADMIT: 11/25/2016 JOB ID: [id number] DATE OF SERVICE: 11/27/[address] Márquez for this timely consult. REASON FOR CONSULTATION: Recurrent soft tissue abscesses. HISTORY OF PRESENT ILLNESS: The patient is a 45-year-old gentleman, known to me from multiple prior admissions. The patient has had recurrent soft tissue infections which have been frequent and severe over the past year or so. This is, by my count, his 7th admission to this facility for complicated skin and soft tissue infections with abscess formation in the last 10 months. The organisms isolated from these many infections have included MRSA, MSSA, Strep anginosus, Prevotella, Enterobacter and Klebsiella. These abscesses tend to be very mimetic and occur typically in both thighs, as well as his left upper arm. The patient does have a longstanding history of substance abuse, but over the past few months, he says he has completely quit and he has no idea why these recur with such rapidity and severity. When I last saw him in the hospital last month, he had once again abscesses in both upper thighs as well as his left deltoid area. These were treated as they typically are with incision and drainage and he was managed with appropriate antibiotics. I have been reluctant to place a PICC or port-type line for long-term IV antibiotics because the patient does have a history, at least a year or so ago, of an illicit injection drug use. During his last admission, he received daptomycin and was eventually discharged with oral Keflex for what was proven to be A Strep anginosus process. The patient states for the past couple weeks he has been faithfully taking his antibiotics and they finished only around November 20. The patient tells me that within just a few days of stopping his antibiotics he developed swelling, tenderness, and pain over both right upper lateral thighs, as well as his left deltoid. He adamantly denies once again using any IM or subcutaneous illicit drugs in these areas. He reports that with this swelling in his thighs and left deltoid, he developed fevers, chills, sweats, headache, photophobia, sore throat, nausea and generalized malaise. He did feel a little bit short of breath but no significant cough. He had no vomiting, diarrhea, or dysuria with these other symptoms. Because of these worsening symptoms, he once again presented to the hospital and was admitted on November 25. He states the only narcotics he has been using are the Percocet, which he is prescribed. Since admission, now 48 hours ago, the patient has been to the operating room where he has had an extensive debriding surgery of both thighs and the left deltoid area. When seen this afternoon with Jaciel of Wound Management, the patient reports a great deal of pain. We removed the packing and carefully examined all his three wounds. During this time, the patient complained of great pain, but otherwise voiced no new symptoms over admission. He stated that overall, he is starting to feel a bit better in terms of the fevers, chills, and sweats. He stated that he and his girlfriend or his , who is an [employer]CH, believe that he would benefit from a prolonged course of IV antibiotics at home. PAST MEDICAL HISTORY: 1. Recurrent subcutaneous and intramuscular infections, involving both thighs and the left deltoid. 2. Hypothyroidism. 3. Borderline diabetes. 4. 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 5. Hypertension. 6. Asthma/COPD. ALLERGIES: Include: 1. SULFA DRUGS. 2. PENICILLIN. 3. DALBAVANCIN. Note that the patient had severe muscle spasms with dalbavancin during an earlier admission. SOCIAL HISTORY: The patient says he stopped using injection heroin in the spring and has been clean for almost a year. He does not drink alcohol but he continues to be a significant cigarette smoker. FAMILY HISTORY: Negative for TB in first- or second-degree relatives. REVIEW OF SYSTEMS: Was done. The patient says he has had on-and-off headaches though they are getting a bit better. He also notes he has had photophobia and watering of the eyes with this process over the past several days. He reports mild sore throat but no trouble swallowing. No new or acute dental problems are reported. The patient has not had stiff neck. He is mildly short of breath sometimes but no real change management coordinator baseline. No significant cough. No chest pain. He has had nausea. In addition to the above-mentioned symptoms, he reports fevers, chills, and night sweats, which are starting to improve. He has had tremendous pain in both lateral upper thighs as well as left deltoid. He has chronic hip pain which is an ongoing problem which has not changed. He has not noticed any significant swelling in his lower extremities and he has not noticed any skin rash except for that connected to the abscesses which have just been drained. Remainder of review of systems negative. PHYSICAL EXAMINATION: Reveals an afebrile gentleman, temperature 36.6, pulse 57, respiratory rate 16, blood pressure 136/79. He is saturating well on room air. Examination the head: No trauma. Eyes without conjunctivitis. Nose: Normal. Oral cavity without thrush or hairy leukoplakia. Dentition is fairly poor. Neck: Supple without adenopathy. The patient's sinuses are nontender. Lungs quite clear. Cardiac tones: Regular rate and rhythm without abnormality. The abdomen is soft and relatively nontender. No hepatosplenomegaly is appreciated. No suprapubic fullness noted. The left deltoid has just been re-dressed, but according to Jaciel, who just drained who just repacked it, it is a fairly small wound and is clean without evidence of cellulitis. Over the bilateral upper thighs, however, there are large deep wounds, measuring 10 cm or more in length, and approximately 6 cm across. These wounds are deep and we removed the packing. There was no evidence of ongoing infection, but there is certainly a great deal of raw tissue there. Examination of the lower extremities below the knees show scattered shallow abrasions but without evidence of ongoing infection anywhere else. His feet are well perfused and warm without skin breakdown or heel ulcerations. There is no significant peripheral edema. Neurologically, the patient is completely intact. LABORATORIES: Include white count 7300, platelets 174, creatinine 0.48. LFTs are normal. We have no recent toxicology. Cultures from this admission include two blood cultures that are negative and four separate cultures taken from these abscesses, all of which are growing Staph aureus. During prior admissions, the wounds have grown Strep anginosus, Staph aureus, MRSA, Klebsiella, and Enterobacter. Prevotella was isolated as well on at least one occasion. IMAGING: On this admission, includes an abdominal CT that showed no evidence of abscess, though it did show right proximal thigh wound with cellulitis. Bilateral inguinal adenopathy is noted as well as a large spleen. Lower extremity CTs were also done on admission. The right lower extremity shows diffuse cellulitis with an abscess and gas. No fasciitis was noted. The left, cellulitis and discrete abscess of the left hip, multifocal intramuscular abscess is seen, and the left upper extremity CT shows three discrete fluid collections, two with gas. There is an appearance of phlegmon there. No findings of osteo. IMPRESSION: This patient is admitted once again with an extraordinary collection of soft tissue infections involving bilateral upper thigh, as well as left deltoid. Some of these fluid collections involve gas and it is unclear where this gas is due to gas formation by micro-organisms or by injection into the area. As has been the case in his last few admissions, the patient says he no longer injects IM or subcu drugs and he has no explanation for these recurrent severe abscesses other than he needs a peripherally-inserted central catheter line and a longer course of antibiotics. This is a difficult case to know how to manage. At this point, we have Staph aureus growing from cultures from all these sites and this is not typically a gas-forming organism. This leads me to wonder about the possibility of inoculation of gas into the tissues perhaps in an attempt to use drugs though again the patient adamantly denies that. RECOMMENDATIONS: 1. Will continue with vancomycin he is receiving at this time. 2. Flagyl will be added to his regimen to cover gas-producing organisms. We can use oral Flagyl in this circumstance, 500 mg every 8 hours. 3. We await the additional final cultures. 4. I have also ordered a urine tox screen as well as a nasal MRSA swab. 5. Will continue to follow this complex patient with you. I am reluctant to give a PICC line to a patient who as recently as a year ago was a known heroin user. Also concerning to me is how he continues to get this extraordinary sequence of soft tissue infections without auto-inoculation and that is an additional concern about sending him home with an IV. Unfortunately, we can no longer use dalbavancin in this patient, which was an easy alternative for a while, and he has multiple allergies which limit our oral antibiotic selections, including allergies to SULFA, DALBAVANCIN, ERYTHROMYCIN and PENICILLIN. Thank you very much for this consult. I will be following closely with you.
[2016-11-28] VITALS (9 sets, daily range): BP systolic 147–172; BP diastolic 79–94; PULSE 62–84; RESP 13–18; O2SAT 97–100
[2016-11-28] MEDS: Sodium Chloride LOK Flush 10 mL Syringe IVFLUSH SCH ×4 (00:30→20:25)
[2016-11-28] MEDS: Vancomycin 1 Gm/200 mL NS Premix IV SCH (00:30)
[2016-11-28] MEDS: Heparin 5,000 Unit/mL Inj SUBQ SCH ×4 (00:33→21:51)
--- NOTE | 2016-11-28 00:42 | NUR ---
IV site unavailable. Pt complains of IV site leaking. Pt's IV site got infiltrated. Venipuncture done by this RN and was unsuccessful. PO dilaudid and tylenol administered for pain. Hourly rounding in effect.
--- NOTE | 2016-11-28 01:13 | NUR ---
Refused Flagyl Pt adamant about refusing flagyl "it makes me throw up, and not feel good". Explained pt the importance of taking the said ABx. Pt understand but still refuses. Will continue to monitor.
[2016-11-28 05:46] LABS: BASOPHILS % (AUTO) 0.2 % (0-3); MONOCYTES % (AUTO) 4.1 % (4-12); Mean Corpuscular Hemoglobin 24.6 pg (27.0-35.0); Mean Corpuscular Volume 78.6 fL (81-100); NEUTROPHILS % (AUTO) 76.9 % (40-74); Platelet Count 210 bil/L (150-400)
[2016-11-28] MEDS ORDERED: Vancomycin Serum Trough XX ONE (07:30)
[2016-11-28] MEDS: Dextrose 5% 500 ML IV SCH (07:54)
--- NOTE | 2016-11-28 11:38 | NUR ---
SW - Continued Discharge Planning Data: Pt is on day 3 of hospitalization for multiple deep tissue abscess. EMR reviewed. Per interdisciplinary rounds pt is on opiate protocol, not medically ready to discharge. Pt is declining CD resources, denies current drug use. PT evaluated pt and is recommending SNF. SW met with pt to choice for SNF. Pt is declining SNF at this time. SW offered HH PT and pt is declining this as well. Pt likely to discharge home via POV when medically stable. No needs assessed. SW will continue to follow. Assessment: Pt who would benefit from and is declining SNF and HH Plan:Pt likely to discharge home via POV when medically stable. No needs assessed. SW will continue to follow. PAULA Fuller
--- NOTE | 2016-11-28 12:14 | PCM.PNMED ---
Subjective Date of Service November 28, 2016 Subjective Patient IV failed so now with out IV access. Complaining of pain but is on Dilaudid 8 mg q 4 hours prn. Watching patient through his window he appears relatively comfortable with no evidence of pain out of control. Nurse will monitor. Exam Vital Signs Vital Sign - Last Date Time Temp Pulse Resp B/P Pulse Ox O2 Delivery O2 Flow Rate FiO2 11/28/16 10:56 71 11/28/16 09:25 36.6 18 166/85 98 Room Air Intake and Output 11/27/16 11/27/16 11/28/16 Cumulative From/Thru 15:00 23:00 07:00 11/24/16 23:47 - 11/28/16 06:01 Intake Total 1733 ml 1126 ml 23512 ml Output Total 2020 ml 2525 ml 27440 ml Balance -287 ml -1399 ml 2898 ml Intake Oral 1733 ml 1126 ml 7419 ml IV Total 7199 ml Output Urine Total 2020 ml 2525 ml 32032 ml # Bowel Movements 0 1 1 Exam Eyes; mark, eom intact HENT; no active lesions, well hydrated CV; no murmur regular Resp; clear anteriorally GI; soft, non acute, non tender Skin; no active rashes Neuro; cn 2-12 intact, no focal sensory or motor defects. Lab and Diagnostics Result Diagram: 11/28/1652911/28/16 05 X-Rays, CTs and MRIs PROCEDURE: CT ABDOMEN AND PELVIS WITH CONTRAST ([id number]) INDICATIONS: s/p colostomy, r/o abscess TECHNIQUE: After the administration of intravenous contrast, 5 mm thick sections acquired from the diaphragm to the symphysis. 5 mm coronal and sagittal reformats were acquired. For radiation dose reduction, the following was used: automated exposure control, adjustment of mA and/or kV according to patient size. COMPARISON: None. FINDINGS: Image quality: Excellent. ABDOMEN: Lung bases: Mild dependent bilateral lower lobe atelectasis. Lung bases are otherwise clear. Heart size is normal. Solid organs: Liver is normal in size and enhancement. Spleen is mildly enlarged measuring 14 cm, and is otherwise within normal limits. Gallbladder is contracted. Biliary system is non dilated. Pancreas enhances normally. No adrenal nodules. Kidneys demonstrate normal size and enhancement, without hydronephrosis. Peritoneum and bowel: Bowel loops demonstrate normal wall thickness and caliber. No free fluid or air. Normal appendix. Nodes and vessels: No retroperitoneal or mesenteric adenopathy by size criteria. Aorta and inferior vena cava are normal in size. Miscellaneous: No ventral hernias. PELVIS: Genitourinary: Bladder wall thickness is normal. Miscellaneous: No inguinal hernia. Pathologic bilateral inguinal adenopathy is present, measuring 16 mm short axis on the right, and 14 mm short axis on the left. Skin and subcutaneous defect overlying the right proximal thigh laterally is present measuring 63 mm, with surrounding fat stranding. Bones: No suspicious bony lesions. No vertebral body compression fractures. IMPRESSION: 1. No evidence of abscess. Right proximal thigh wound with surrounding cellulitis. 2. Bilateral inguinal adenopathy, presumably reactive. 3. Splenomegaly. Dictated by: Minda Valentine M.D. on 11/26/2016 at 11:29 Approved by: Minda Valentine M.D. on 11/26/2016 at 11:32 PROCEDURE: CT UPPER EXTREMITY LT W CON INDICATIONS: abscesses TECHNIQUE: After the administration of intravenous contrast, 3 mm axial sections acquired of the left upper extremity, with coronal and sagittal reformats. For radiation dose reduction, the following was used: automated exposure control, adjustment of mA and/or kV according to patient size. COMPARISON: None. FINDINGS: Image quality: Excellent. Bones: No cortical thinning or periosteal reaction. No fracture or dislocation. Soft tissues: There is a rim-enhancing fluid collection which is intermediate density centrally which measures 3.8 x 1.9 x 8.1 cm. This abuts the lateral aspect of the left deltoid musculature. There is overlying subcutaneous edema. Just superior to this rim-enhancing fluid collection is a 7 mm diameter rim enhancing centrally intermediate density fluid collection with a punctate focus of gas present (series 4, image 18). A complex, enhancing fluid collection with a central focus of gas is present overlying the triceps. This measures 3.1 x 2.1 x 4.4 cm. There are multiple shotty left axillary lymph nodes, some of which are pathologically enlarged. IMPRESSION: 1. 3 discrete enhancing fluid collections, 2 of which contain punctate foci of gas. The superior collection measures less than 1 cm in diameter and is likely not amenable to her percutaneous drainage. The inferior collection has a complex appearance suggesting a phlegmon. The middle fluid collection overlying the deltoid musculature may be amenable to percutaneous drainage. 2. No findings to suggest osteomyelitis. 3. Axillary adenopathy, likely infectious in nature. These findings are concordant with the overnight interpretation. Dictated by: Ayana Bautista M.D. on 11/25/2016 at 7:34 Approved by: Ayana Bautista M.D. on 11/25/2016 at 7:40 Assessment & Plan Fred Salgado is a 45 year old male with Hypothyroid, IV heroin abuse, MRSA and recurrent abscess presents to [facility] emergency department complaining of multiple abscesses 1. Sepsis. Present on admission, resolved -Meeting criteria with tachycardia and Leukocytosis with skin infections as source. Lactic acid normal. source: abscess/cellulitis, 2.Acute Skin Abscesses, poa, active -recurrent multiple skin abscess with cellulitis a/w IM heroin use although pt denied using it. last hospitalization last month, underwent surgical I&D 10/24 extensively. Patient was started with meropenem and IV vancomycin, switched to daptomycin and ciprofloxacin per ID consult. Final wound culture showed streptococcus Angionosus, staph aureus, staph epididermis, all sensitive to Keflex, plan was to continue for 14days. pt returned with same abscess again after he finished abx. - I&D in OR 11-26-16,, L deltoid, L hip, R hip, R distal thigh, - cultures wound show strep and MSSA - discussed with Dr. 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 Acute Pain management, poa, active -continue dilaudid PO 8 q 4 hours prn -nurse to watch patient clossely for any pain out of control and will call me if needed 3 Hypothyroidism,poa, chronic - continuing Synthroid 4 Heroine Abuse,poa, chronic - appreciate acoustical material worker to provide resources 5 Nicotine dependence, poa, active -Cessation discussed and encouraged, -Nicotine patch on request dvt ppx: HSQ q8h diet: general dispo: pending, 3-4more days, VTE Prophylaxis: Sub-Q Heparin (Unfractionated) Resuscitation Status: CPR: Attempt Resuscitation Daija Márquez MD November 28, 2016 12:13
--- NOTE | 2016-11-28 15:09 | PCM.PNSURG ---
Subjective Date of Service: November 28, 2016 Date of Service: November 28, 2016 Visit Information: Reason for Visit Multiple Deep Tissue Abscess Surgery/Surgery Date Post-Op Day # 3 s/p Multiple abscess I&D Date of Admission: November 25, 2016 at 04:19 Hospital Day # Subjective: Patient continues in pain with dressing changes although improved slightly. Reports greatest pain still in right hip wound. Postop General: Other (persistent pain at I&D sites on bilateral hips, distal right thigh and left deltoid.) Gastrointestinal: Tolerating Oral Feedings, No N/V Pain Management: IV Push (dilaudid) Postop Activity: Ambulating Independently Objective Objective sitting in bed comfortable unless wounds are touched.No fevers or chills. Vital Sign- Last 8 Hours Date Time Temp Pulse Resp B/P Pulse Ox O2 Delivery O2 Flow Rate FiO2 11/28/16 13:46 36.5 81 18 167/82 100 Room Air 11/28/16 10:56 71 11/28/16 09:25 36.6 68 18 166/85 98 Room Air 11/28/16 07:47 68 16 99 Room Air Intake and Output- Last 8 Hour 11/28/16 Cumulative From/Thru 07:00 11/24/16 23:47 - 11/28/16 06:01 Intake Total 1126 ml 41359 ml Output Total 2525 ml 83420 ml Balance -1399 ml 2898 ml Intake Oral 1126 ml 7419 ml IV Total 7199 ml Output Urine Total 2525 ml 15663 ml # Bowel Movements 1 1 General: Oriented X3, No Acute Distress Lungs: Clear to Auscultation Heart: Exam Unremarkable Abdomen: Benign SURGICAL WOUND : Wound Location/Description 1. Left deltoid open and clean wound bed except area of fluctuance superior to wound about 2cm diameter, possibly new? No erythema.Tender to palpation. 2. Left hip clean wound bed without surrounding erythema, tender to touch. 3. Right hip wound very tender to palpation with clean wound bed. No erythema. 4. Right distal thigh wound clean wound bed without exudate or erythema. Tender to palpation. 5. Punctate wound right thigh central lateral thigh with superior tracking approximately 2 cm. Some purulent matter expressed. No erythema. Minimal tenderness. Wound General Appearence: No Erythema, No Discharge (except punctate wound right central thigh.), Open (5 wounds left open.) Dressing & Drainage Status: Changed, Dressing Removed, Serosanguineous Drainage, No Odor Extremities: Warm Result Diagram: 11/28/16 0530 11/28/16 0530 Assessment & Plan Impression Multiple wounds pod 3 s/p I&D, colonized with s. aureus. Blood cultures continue NGTD. Problems: Plan Slow improvement noted to patient discomfort. Will need to I&D new area of fluctuance of left deltoid as could be contributing to new leukocytosis although patient refuses bedside procedure. Continue current abx regimen per ID. OOB/ambulate Daily wet to dry dressings AM labs Pain Management: dilaudid push VTE Prophylaxis: Sub-Q Heparin (Unfractionated) Resuscitation Status: CPR: Attempt Resuscitation Cristofer Pedroza PA-C November 28, 2016 15:09
--- NOTE | 2016-11-28 17:29 | PROG NOTE ---
[address] [address] PROGRESS NOTE PATIENT: SINTIA OJEDA : 1970 MR#: [id number] ADMIT: 11/25/2016 JOB ID: [id number] DATE: 11/28/2016 REASON FOR FOLLOWUP: Multiple soft tissue abscesses. INTERVAL HISTORY: Recall this is a 45-year-old, ex-drug user who says he has not used any subcutaneous or intramuscular illicit substances in almost a year but continues to be admitted with frequent soft tissue abscesses. On this admission, he came in with bilateral upper lateral thigh abscesses as well as a left deltoid abscess which have already been incised and drained. The patient's antibiotics have been changed overnight as I had prescribed Flagyl for anaerobic coverage to be added to his vancomycin because of the possibility of gas-forming organisms. Unfortunately, the patient does not tolerate Flagyl at all and developed profound nausea and vomiting whenever he tries to take it, so he refused the Flagyl. Recall that the imaging of the abscesses shows that there was gas formation, and so I was reluctant to conclude this was exclusively am aerobic infection, but we are now apparently without Flagyl as an agent to use for possible anaerobic infection. In any event, the patient reports when people are not manipulating his complex dressings, he is relatively free of pain. He notes that he experiences 11/10 pain when either Wound Management or Surgery remove any the packing or dressings from his extensive bilateral thigh wounds. He is having no fevers, chills, or shortness of breath today and no nausea, vomiting or diarrhea. PHYSICAL EXAMINATION: Reveals an afebrile gentleman, in no acute distress. Temp 36.5, pulse 81, respiratory rate 18, blood pressure 167/82, he is saturating 100% on room air. Oral cavity negative. Mental status is normal. Lungs relatively clear. Cardiac tones: Without new murmur. The patient did not allow me to remove any of the packing. He has large wounds over both lateral upper thighs which have recently been repacked by General Surgery and a smaller dressing and packing over the left deltoid. There is no surrounding cellulitis. LABORATORIES: Include white count 10,000 today, modest left shift, 77% segs, creatinine 0.56. LFTs are normal. Procalcitonin is 0. Cultures are interesting. MSSA has been isolated from multiple samples. In addition, we are growing two separate species of Streptococcus to be identified later as well as what appears to be an Enterococcus also in heavy growth. No anaerobes have been isolated from any culture yet, but it is too early to tell for sure. IMPRESSION: This is a bizarre case of a gentleman who is recurrently admitted with large soft tissue abscesses which are predominantly staphylococcal but other luciana are occasionally found. These abscesses require extensive surgery and prolonged wound management and then resolve only to recur a few weeks or months or two later. The logical explanation here must be discontinuing to inject drugs, but the patient says he is not and has not for eight or nine months. Interestingly, this is the first time his urine tox screen did not show amphetamine, so it is indeed possible that he is not injecting drugs, but if so this is a very strange case in that he continues to get very significant recurrent abscesses perhaps without even continuing drug use. RECOMMENDATIONS: Dr. Márquez and I discussed this case in detail. We decided that we should try and all oral regimen aimed at Staph, Strep and Enterococcus. The easiest way to do this would be with Zyvox 600 mg p.o. at b.i.d. which is a great drug for Staph aureus as well as basically all streptococcal species and Enterococcus. This leaves us without coverage for the anaerobes, but this will be difficult to achieve given the patient's intolerance to FLAGYL and other drug allergies including an allergy to PENICILLIN which makes Augmentin not an option either for anaerobic coverage. Will continue to closely observe this patient going forward and hope that the debridement has been enough to cure his anaerobic infection.
--- NOTE | 2016-11-28 18:07 | NUR ---
Wound note Wounds at left deltoid,left thigh and right thigh and hip are cleaned with saline and gauze. Redressed with moist gauze, and covered with abd pads. Surgical service assessed new left deltoid abscess and new right thigh abscess and will make recommendations. Dressing change was better today for patient from a pain standpoint. Will have patient follow up in the wound center on discharge.
--- NOTE | 2016-11-28 18:30 | NUR ---
IV/Pain IV therapy unable to find a peripheral access-Hospitalist aware-okay no IV. Patient continues to report pain 8-9/10. Patient reporting pain medication wears off "an hour before the next dose is due". After medication, patient reports pain of 8/10.
--- NOTE | 2016-11-28 20:23 | NUR ---
Dressing Change P: multiple wounds draining minimal amount of sanguineous and sero-sanguineous on left shoulder, bilateral hips, right leg. I: tower technician and surgical PA removed dressings, observed healing, left hip had small amount of what appeared necrotic tissue, no debridement at this time. Each wound packed with moist gauze, then applied ABD dressings, and secured with paper tape. E: dressing dry and intact, no visible drainage, will continue to monitor S: bed down, low position, locked, call light in reach, patient instructed to call for help if experiencing dizziness
[2016-11-29] VITALS (8 sets, daily range): BP systolic 138–162; BP diastolic 72–91; PULSE 72–92; RESP 14–18; O2SAT 97–98
[2016-11-29] MEDS: Dextrose 5% 500 ML IV SCH (02:18)
[2016-11-29] MEDS: Sodium Chloride LOK Flush 10 mL Syringe IVFLUSH SCH ×3 (08:30→20:01)
[2016-11-29] MEDS: Heparin 5,000 Unit/mL Inj SUBQ SCH ×2 (09:03→15:49)
--- NOTE | 2016-11-29 11:08 | NUR ---
Patient refused to sign [facility] 1042AM
--- NOTE | 2016-11-29 11:16 | PROG NOTE ---
[address] [address] PROGRESS NOTE PATIENT: SINTIA OJEDA : 1970 MR#: [id number] ADMIT: 11/25/2016 JOB ID: [id number] DATE: 11/29/2016 INFECTIOUS DISEASE FOLLOWUP NOTE: REASON FOR FOLLOWUP: Multiple abscesses including the right thigh, left thigh and left deltoid. INTERVAL HISTORY: Overnight, the patient says he has been nauseated due to the oral Zyvox he is receiving as his antibiotic. He denies any fevers or chills. No cough, shortness of breath, nausea, or vomiting but considerable pain in his right lateral thigh. PHYSICAL EXAMINATION: Temperature 36.4, pulse 74, respiratory rate 18, blood pressure 157/87. The patient's mental status is clear. Oral cavity negative. Lungs clear. Cardiac tones without murmur. Abdomen benign. The right lateral thigh has two incisions, the superior one was quite tender but there is no surrounding erythema around the dressing. The left lateral thigh seems to be doing better. There is little tenderness around the wound, and the left deltoid is much improved. No additional rash noted. LABORATORIES: Include white count 10,000, platelet count 210. Creatinine 0.56. Urine tox negative. MICROBIOLOGY: All cultures are growing Staph aureus, and this is a methicillin-sensitive Staph aureus isolate. One culture is growing a Strep anginosus, which is quite susceptible except to clindamycin. One of the four cultures which grew Staph aureus was also growing Enterococcus faecalis. Regrettably, this isolate is intermediate to Zyvox, which is the oral agent I have chosen for this patient at this time. Recall the patient has many allergies including PENICILLINS, DALBAVANCIN, METRONIDAZOLE and SULFA DRUGS. IMPRESSION: Overall, the patient seems to be making progress and I think Zyvox is a reasonable oral drug but one of the organisms, enterococcus, is only intermediately susceptible. Given that it was only found in one culture and tends not to be the most pathogenic organism, I think at this point will hold off on antibiotic changes and continue with Zyvox in preparation for discharge if the patient does well. RECOMMENDATIONS: 1. Will continue with Zyvox 600 p.o. b.i.d. 2. If the patient should stop making progress or get worse, we would switch to high-dose daptomycin, which we are now going to test the enterococcus for in terms of susceptibility.
--- NOTE | 2016-11-29 11:54 | NUR ---
Blood Glucose: 1200 BG check is 229. Patient did drink two chocolate milks mid morning. No insulin coverage ordered. MD notified of BG @ 3816. No new orders received.
--- NOTE | 2016-11-29 14:27 | PCM.PNMED ---
Subjective Date of Service November 29, 2016 Subjective In bed resting comfortable, no evidence of significant pain. New fluctuant area L deltoid area. No other problems noted. Exam Vital Signs Vital Sign - Last Date Time Temp Pulse Resp B/P Pulse Ox O2 Delivery O2 Flow Rate FiO2 11/29/16 13:35 36.7 72 16 145/89 98 Room Air Intake and Output 11/28/16 11/28/16 11/29/16 Cumulative From/Thru 15:00 23:00 07:00 11/24/16 23:47 - 11/29/16 06:11 Intake Total 518 ml 1200 ml 79312 ml Output Total 1225 ml 1250 ml 24558 ml Balance -707 ml -50 ml 2141 ml Intake Oral 518 ml 1200 ml 9137 ml IV Total 7199 ml Output Urine Total 1225 ml 1250 ml 01930 ml # Bowel Movements 0 1 Exam Eyes; mark, eom intact HENT; no active lesions, well hydrated CV; no murmur regular Resp; clear anteriorally GI; soft, non acute, non tender Skin; no active rashes, there is an area of fluctuance L deltoid area, all other area are bandages and healing OK so far Neuro; cn 2-12 intact, no focal sensory or motor defects. Lab and Diagnostics Result Diagram: 11/28/1652911/28/16529 X-Rays, CTs and MRIs PROCEDURE: CT ABDOMEN AND PELVIS WITH CONTRAST ([id number]) INDICATIONS: s/p colostomy, r/o abscess TECHNIQUE: After the administration of intravenous contrast, 5 mm thick sections acquired from the diaphragm to the symphysis. 5 mm coronal and sagittal reformats were acquired. For radiation dose reduction, the following was used: automated exposure control, adjustment of mA and/or kV according to patient size. COMPARISON: None. FINDINGS: Image quality: Excellent. ABDOMEN: Lung bases: Mild dependent bilateral lower lobe atelectasis. Lung bases are otherwise clear. Heart size is normal. Solid organs: Liver is normal in size and enhancement. Spleen is mildly enlarged measuring 14 cm, and is otherwise within normal limits. Gallbladder is contracted. Biliary system is non dilated. Pancreas enhances normally. No adrenal nodules. Kidneys demonstrate normal size and enhancement, without hydronephrosis. Peritoneum and bowel: Bowel loops demonstrate normal wall thickness and caliber. No free fluid or air. Normal appendix. Nodes and vessels: No retroperitoneal or mesenteric adenopathy by size criteria. Aorta and inferior vena cava are normal in size. Miscellaneous: No ventral hernias. PELVIS: Genitourinary: Bladder wall thickness is normal. Miscellaneous: No inguinal hernia. Pathologic bilateral inguinal adenopathy is present, measuring 16 mm short axis on the right, and 14 mm short axis on the left. Skin and subcutaneous defect overlying the right proximal thigh laterally is present measuring 63 mm, with surrounding fat stranding. Bones: No suspicious bony lesions. No vertebral body compression fractures. IMPRESSION: 1. No evidence of abscess. Right proximal thigh wound with surrounding cellulitis. 2. Bilateral inguinal adenopathy, presumably reactive. 3. Splenomegaly. Dictated by: Minda Valentine M.D. on 11/26/2016 at 11:29 Approved by: Minda Valentine M.D. on 11/26/2016 at 11:32 PROCEDURE: CT UPPER EXTREMITY LT W CON INDICATIONS: abscesses TECHNIQUE: After the administration of intravenous contrast, 3 mm axial sections acquired of the left upper extremity, with coronal and sagittal reformats. For radiation dose reduction, the following was used: automated exposure control, adjustment of mA and/or kV according to patient size. COMPARISON: None. FINDINGS: Image quality: Excellent. Bones: No cortical thinning or periosteal reaction. No fracture or dislocation. Soft tissues: There is a rim-enhancing fluid collection which is intermediate density centrally which measures 3.8 x 1.9 x 8.1 cm. This abuts the lateral aspect of the left deltoid musculature. There is overlying subcutaneous edema. Just superior to this rim-enhancing fluid collection is a 7 mm diameter rim enhancing centrally intermediate density fluid collection with a punctate focus of gas present (series 4, image 18). A complex, enhancing fluid collection with a central focus of gas is present overlying the triceps. This measures 3.1 x 2.1 x 4.4 cm. There are multiple shotty left axillary lymph nodes, some of which are pathologically enlarged. IMPRESSION: 1. 3 discrete enhancing fluid collections, 2 of which contain punctate foci of gas. The superior collection measures less than 1 cm in diameter and is likely not amenable to her percutaneous drainage. The inferior collection has a complex appearance suggesting a phlegmon. The middle fluid collection overlying the deltoid musculature may be amenable to percutaneous drainage. 2. No findings to suggest osteomyelitis. 3. Axillary adenopathy, likely infectious in nature. These findings are concordant with the overnight interpretation. Dictated by: Ayana Bautista M.D. on 11/25/2016 at 7:34 Approved by: Ayana Bautista M.D. on 11/25/2016 at 7:40 Assessment & Plan Fred Salgado is a 45 year old male with Hypothyroid, IV heroin abuse, MRSA and recurrent abscess presents to [facility] emergency department complaining of multiple abscesses 1. Sepsis. Present on admission, resolved -Meeting criteria with tachycardia and Leukocytosis with skin infections as source. Lactic acid normal. source: abscess/cellulitis, 2.Acute Skin Abscesses, poa, active -recurrent multiple skin abscess with cellulitis a/w IM heroin use although pt denied using it. last hospitalization last month, underwent surgical I&D 10/24 extensively. Patient was started with meropenem and IV vancomycin, switched to daptomycin and ciprofloxacin per ID consult. Final wound culture showed streptococcus Angionosus, staph aureus, staph epididermis, all sensitive to Keflex, plan was to continue for 14days. pt returned with same abscess again after he finished abx. - I&D in OR 11-26-16,, L deltoid, L hip, R hip, R distal thigh, - cultures wound show strep and MSSA - discussed with Dr. Ziegler, will switch to PO zyvox 660 bid for 2 weeks, patient has no IV access at this time -dc vanco and flagyl -gate tender tomorrow -New Fluctuant area L deltoid area, surgury will be draining 3. Acute Pain management, poa, active -continue dilaudid PO 8 q 4 hours prn -nurse to watch patient clossely for any pain out of control and will call me if needed -appears well controlled today 3 Hypothyroidism,poa, chronic - continuing Synthroid 4 Heroine Abuse,poa, chronic - appreciate home health care worker to provide resources 5 Nicotine dependence, poa, active -Cessation discussed and encouraged, -Nicotine patch on request dvt ppx: HSQ q8h diet: general dispo: pending, 3-4more days, VTE Prophylaxis: Sub-Q Heparin (Unfractionated) Resuscitation Status: CPR: Attempt Resuscitation Daija Márquez MD November 29, 2016 14:27
--- NOTE | 2016-11-29 15:17 | PCM.PNSURG ---
Subjective Date of Service: November 29, 2016 Visit Information: Reason for Visit Multiple Deep Tissue Abscess Surgery/Surgery Date Post-Op Day #4 Date of Admission: November 25, 2016 at 04:19 Hospital Day # Subjective: Seen with the wound care nurse. Pain mostly controlled with oral analgesic. Postop General: No Complaints Gastrointestinal: Good Appetite, Tolerating Oral Feedings Pain Management: PO, IV Push Postop Activity: Ambulating Independently Objective Vital Sign- Last 8 Hours Date Time Temp Pulse Resp B/P Pulse Ox O2 Delivery O2 Flow Rate FiO2 11/29/16 13:35 36.7 72 16 145/89 98 Room Air 11/29/16 13:18 86 14 97 Room Air 11/29/16 10:51 92 11/29/16 09:22 36.4 74 18 157/87 97 Room Air Intake and Output- Last 8 Hour 11/29/16 Cumulative From/Thru 07:00 11/24/16 23:47 - 11/29/16 06:11 Intake Total 1200 ml 06688 ml Output Total 1250 ml 31571 ml Balance -50 ml 2141 ml Intake Oral 1200 ml 9137 ml IV Total 7199 ml Output Urine Total 1250 ml 10454 ml # Bowel Movements 1 General: Alert, Cooperative, No Acute Distress Lungs: Clear to Auscultation Heart: Regular Rate/Rhythm (distant) SURGICAL WOUND : Wound Location/Description Left deltoid abscess site is examined. There is a approximately 2 cm area of fluctuance superior to the surgical incision that is not draining and has surrounding erythema. Right lateral thigh abscess is examined: There is purulent drainage and tunneling approximately 4 cm. All other right thigh and left thigh I&D sites are clean with no undrained pockets. Neuro: Normal Speech Catheters: None Result Diagram: 11/28/1630 11/28/16 05 Assessment & Plan Impression Primary diagnoses: 1. Multiple abscesses of the left deltoid, left hip, right hip, and right distal thigh. POD #4 with an undrained pockets superior to the left deltoid surgical site and at the right lateral thigh surgical sites. 2. IV drug use Other chronic conditions: 1. Hypothyroidism 2. Prediabetes 3. Chronic pain 4. Hypertension 5. Asthma/COPD 6. Daily cigarette smoker Problems: Plan The patient refuses bedside I&D of residual undrained abscesses. He will be made nothing by mouth after midnight and evaluated by Dr. Cancino in the morning for further abscess drainage. Pain Management: IV Dilaudid VTE Prophylaxis: Sub-Q Heparin (Unfractionated) Resuscitation Status: CPR: Attempt Resuscitation Yonatan Mendez PA-C November 29, 2016 15:17
--- NOTE | 2016-11-29 16:01 | NUR ---
Wound Note Patient seen for wound care and dressing changes, areas of continued abscess at left deltoid and right thigh pointed out to surgery service. All open areas are irrigated with saline, then repacked with saline moist gauze and covered with abd pads and tape. Patient tolerated treatment well. Patient NPO for possible OR I&D tomorrow. Wound to follow as needed.
--- NOTE | 2016-11-29 16:06 | NUR ---
NUTRITION ASSESSMENT: ASSESS: 45 YO male admitted for multiple deep tissue abscesses POD #4 for I and D. Additional un-drained abscess found with pt refusing bedside I and D so pt will be NPO with possible surgical intervention. Pt with good po intake from 11/25-11/27 of 50-75% of meals. Pt refused meals 11/28. No po intake reported yet today. PMHx: hypothyroidism, prediabetes, chronic pain, HTN, asthma, COPD, daily cigarette use, IV drug use. LABS: Reviewed. Alb 2.8. MEDS: Reviewed. GI: BM x 1 (11/28) SKIN: L deltoid, L and R hips, R distal thigh, s/p I and D for deep tissue abscesses. CURRENT WT: 94.5 kg. DIET: Diabetic. PO refusal - 75%. EST. NEEDS: [id number] kcals (25-30 kcals/kg BW), 115-140 g protein (1.2-1.5 g/kg BW) NUTRITION DIAGNOSIS: 1.) Increased nutrient needs related to increased demand for nutrients as evidenced by multiple skin issues. NUTRITION INTERVENTION: 1.) Will add Glucerna TID between meals. MONITOR / EVAL: PO intake, labs, nutritional status. Follow per moderate nutritional risk guidelines.
[2016-11-30] VITALS (14 sets, daily range): BP systolic 127–153; BP diastolic 69–90; PULSE 59–78; RESP 11–18; O2SAT 96–100
[2016-11-30] MEDS: Heparin 5,000 Unit/mL Inj SUBQ SCH ×3 (00:21→16:47)
--- NOTE | 2016-11-30 07:17 | PCM.PNMED ---
Subjective Date of Service November 30, 2016 Subjective No new complaints today. Still painful L deltoid. NPO for possible I&D Exam Vital Signs Vital Sign - Last Date Time Temp Pulse Resp B/P Pulse Ox O2 Delivery O2 Flow Rate FiO2 11/30/16 06:05 36.7 59 18 127/79 98 Room Air Intake and Output 11/29/16 11/29/16 11/30/16 Cumulative From/Thru 15:00 23:00 07:00 11/24/16 23:47 - 11/30/16 06:34 Intake Total 947 ml 1970 ml 86930 ml Output Total 1400 ml 1450 ml 20943 ml Balance -453 ml 520 ml 2208 ml Intake Oral 947 ml 1970 ml 40779 ml IV Total 7199 ml Output Urine Total 1400 ml 1450 ml 73186 ml # Bowel Movements 0 1 Exam Eyes; mark, eom intact HENT; no active lesions, well hydrated CV; no murmur regular Resp; clear anteriorally GI; soft, non acute, non tender Skin; no active rashes, there is an area of fluctuance L deltoid area, all other area are bandages and healing OK so far Neuro; cn 2-12 intact, no focal sensory or motor defects. Lab and Diagnostics Result Diagram: 11/28/16 0530 11/28/16 0530 X-Rays, CTs and MRIs PROCEDURE: CT ABDOMEN AND PELVIS WITH CONTRAST ([id number]) INDICATIONS: s/p colostomy, r/o abscess TECHNIQUE: After the administration of intravenous contrast, 5 mm thick sections acquired from the diaphragm to the symphysis. 5 mm coronal and sagittal reformats were acquired. For radiation dose reduction, the following was used: automated exposure control, adjustment of mA and/or kV according to patient size. COMPARISON: None. FINDINGS: Image quality: Excellent. ABDOMEN: Lung bases: Mild dependent bilateral lower lobe atelectasis. Lung bases are otherwise clear. Heart size is normal. Solid organs: Liver is normal in size and enhancement. Spleen is mildly enlarged measuring 14 cm, and is otherwise within normal limits. Gallbladder is contracted. Biliary system is non dilated. Pancreas enhances normally. No adrenal nodules. Kidneys demonstrate normal size and enhancement, without hydronephrosis. Peritoneum and bowel: Bowel loops demonstrate normal wall thickness and caliber. No free fluid or air. Normal appendix. Nodes and vessels: No retroperitoneal or mesenteric adenopathy by size criteria. Aorta and inferior vena cava are normal in size. Miscellaneous: No ventral hernias. PELVIS: Genitourinary: Bladder wall thickness is normal. Miscellaneous: No inguinal hernia. Pathologic bilateral inguinal adenopathy is present, measuring 16 mm short axis on the right, and 14 mm short axis on the left. Skin and subcutaneous defect overlying the right proximal thigh laterally is present measuring 63 mm, with surrounding fat stranding. Bones: No suspicious bony lesions. No vertebral body compression fractures. IMPRESSION: 1. No evidence of abscess. Right proximal thigh wound with surrounding cellulitis. 2. Bilateral inguinal adenopathy, presumably reactive. 3. Splenomegaly. Dictated by: Minda Valentine M.D. on 11/26/2016 at 11:29 Approved by: Minda Valentine M.D. on 11/26/2016 at 11:32 PROCEDURE: CT UPPER EXTREMITY LT W CON INDICATIONS: abscesses TECHNIQUE: After the administration of intravenous contrast, 3 mm axial sections acquired of the left upper extremity, with coronal and sagittal reformats. For radiation dose reduction, the following was used: automated exposure control, adjustment of mA and/or kV according to patient size. COMPARISON: None. FINDINGS: Image quality: Excellent. Bones: No cortical thinning or periosteal reaction. No fracture or dislocation. Soft tissues: There is a rim-enhancing fluid collection which is intermediate density centrally which measures 3.8 x 1.9 x 8.1 cm. This abuts the lateral aspect of the left deltoid musculature. There is overlying subcutaneous edema. Just superior to this rim-enhancing fluid collection is a 7 mm diameter rim enhancing centrally intermediate density fluid collection with a punctate focus of gas present (series 4, image 18). A complex, enhancing fluid collection with a central focus of gas is present overlying the triceps. This measures 3.1 x 2.1 x 4.4 cm. There are multiple shotty left axillary lymph nodes, some of which are pathologically enlarged. IMPRESSION: 1. 3 discrete enhancing fluid collections, 2 of which contain punctate foci of gas. The superior collection measures less than 1 cm in diameter and is likely not amenable to her percutaneous drainage. The inferior collection has a complex appearance suggesting a phlegmon. The middle fluid collection overlying the deltoid musculature may be amenable to percutaneous drainage. 2. No findings to suggest osteomyelitis. 3. Axillary adenopathy, likely infectious in nature. These findings are concordant with the overnight interpretation. Dictated by: Ayana Bautista M.D. on 11/25/2016 at 7:34 Approved by: Ayana Bautista M.D. on 11/25/2016 at 7:40 Assessment & Plan Fred Salgado is a 45 year old male with Hypothyroid, IV heroin abuse, MRSA and recurrent abscess presents to [facility] emergency department complaining of multiple abscesses 1. Sepsis. Present on admission, resolved -Meeting criteria with tachycardia and Leukocytosis with skin infections as source. Lactic acid normal. source: abscess/cellulitis, 2.Acute Skin Abscesses, poa, active -recurrent multiple skin abscess with cellulitis a/w IM heroin use although pt denied using it. last hospitalization last month, underwent surgical I&D 10/24 extensively. Patient was started with meropenem and IV vancomycin, switched to daptomycin and ciprofloxacin per ID consult. Final wound culture showed streptococcus Angionosus, staph aureus, staph epididermis, all sensitive to Keflex, plan was to continue for 14days. pt returned with same abscess again after he finished abx. -I&D in OR 11-26-16,, L deltoid, L hip, R hip, R distal thigh, -cultures wound show strep and MSSA -discussed with Dr. Ziegler, will switch to PO zyvox 660 bid for 2 weeks, patient has no IV access at this time -dc vanco and flagyl -purchasing buyer tomorrow -New Fluctuant area L deltoid area, NPO now for possible I&D this AM 3. 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
[2016-11-30] MEDS: Dextrose 5% 500 ML IV SCH (07:54)
[2016-11-30] MEDS: Sodium Chloride LOK Flush 10 mL Syringe IVFLUSH SCH ×2 (08:30→16:30)
[2016-11-30] MEDS ORDERED: Propofol 10,000 mCg/mL 20 mL Inj ONE (12:51)
[2016-11-30] MEDS ORDERED: fentaNYL-PF 50 mCg/mL 2 mL Inj ONE ×2 (12:51→19:18)
[2016-11-30] MEDS ORDERED: HYDROmorphone 2 mg/mL Inj ONE (12:51)
--- NOTE | 2016-11-30 14:26 | PROG NOTE ---
[address] [address] PROGRESS NOTE PATIENT: SINTIA OJEDA : 1970 MR#: [id number] ADMIT: 11/25/2016 JOB ID: [id number] DATE: 11/30/2016 INFECTIOUS DISEASE FOLLOW UP NOTE: REASON FOR FOLLOWUP: Multiple soft tissue abscesses in the bilateral upper lateral thighs as well as the left deltoid. INTERVAL HISTORY: The patient reports overall he is doing reasonably well on his oral Zyvox antibiotic therapy status post his multiple debridements. He reports no fevers or chills though he still has sweats. He has some degree of headache and sore throat but no cough, shortness of breath or abdominal pain. He does note that an area above his left deltoid debridement site has turned warm and tender and that Dr. Cancino plans to take him back to the OR and debride that later today. PHYSICAL EXAMINATION: Reveals an afebrile gentleman, temperature 36.7, pulse 73, respiratory rate 16, blood pressure 153/84. He is saturating well on room air. The patient's mental status is clear. His oral cavity is unremarkable. His lungs are clear. He does not have an IV line. I did not examine the thigh wounds which are packed. His left deltoid wound is also packed and dressed but just above it there is an area of warmth, erythema and tenderness which is the site of the impending I and D. LABORATORIES: Include a white count last done two days ago was 10,000. Procalcitonin two days ago was negative. His cultures recall yielded four different organisms from four different cultures. All four cultures though have Staph aureus as the common thread. One culture also has strep anginosus and strep viridans and one other culture has Staph aureus and some Enterococcus faecalis. That Enterococcus faecalis is intermediate to linezolid but all others are susceptible. All the other organisms would be presumed susceptible or proven susceptible to Zyvox. I had asked the lab to check and the Enterococcus faecalis is quite sensitive to daptomycin should we be forced to treat intravenously, but at this point, the patient looks nontoxic and I am hoping to hold off. IMPRESSION: This is a confusing gentleman who keeps presenting with bilateral thigh and shoulder abscesses, who by his report does not use drugs anymore and we do have a negative urine tox screen. Why he develops these recurrent abscesses despite thorough debridement and appropriate antibiotics is extremely unclear. At this point, we are growing Staph aureus from four different cultures and strep viridans, strep anginosus and enterococcus from one each. Obviously the overwhelming pathogen here is the Staph aureus and I feel reasonably comfortable treating this with oral Zyvox in this patient. He has multiple allergies which make treatment difficult and it is also difficult to get IV access and we are not perhaps completely comfortable yet sending him home with a PICC line so Zyvox makes good sense as a powerful oral agent if he can continue to tolerate it. RECOMMENDATIONS: 1. Will continue Zyvox. 2. We will see what the debridement of the shoulder brings. 3. Will continue to follow this patient with you.
--- NOTE | 2016-11-30 16:40 | NUR ---
Off the unit Call from Meredith in OR, pt to be taken down for I&D of L Arm abscess. Pt has been NPO through the day, pain at tolerable level with 8 mg PO Dilaudid Q 4 hours. Pt has no IV access. OR has been made aware, may place IJ. VSS, No complains of increased pain. Frequent rounding in place
--- NOTE | 2016-11-30 17:42 | PCM.HPANE ---
Patient Data Surgeon Admitting Provider:Carl Wood MD Attending Provider:Carl Wood MD Primary Care Physician:Collin Garcia MD Other Provider: Reason for Visit Multiple Deep Tissue Abscess Ht/WT & BMI Height (Feet): 5 Height (Inches): 10.00 Weight (Kilograms): 97.700 Body Mass Index 32.16 Allergies Coded Allergies: Sulfa (Sulfonamide Antibiotics) (Verified Allergy, Intermediate, Rash, 03/31) STATES BLISTERS ON PENIS codeine (Verified Allergy, Mild, Rash,Itching,, 03/31/16) penicillin G (Verified Allergy, Unknown, Rash, 03/31/16) IN HIS YOUTH dalbavancin (Verified Adverse Reaction, Intermediate, Severe muscle spasms required discontinuation of infusion., 04/30/16) erythromycin base (Verified Adverse Reaction, Mild, Nausea, 03/31/16) metronidazole (Verified Adverse Reaction, Mild, 11/27/16) Pt refused, "It tears my stomach up". Past Anesthesia History Anesthesia History: Denies:: Abnormal Airway, Anesthesia Reactions, Fam Anesthesia Reaction, Fam Malignant Hypertherm, Malignant Hyperthermia Diabetes History Hx Diabetes?: Yes (prediabetic) Current Bedside Blood Glucose: 212 MRSA MRSA: Yes Medications Hypertension Medication: No Home Meds Incl Beta Nazario: No Reported Medications Hydrocodone-Acetaminophen 10-325 mg 1 Each Tablet1 Tablet PO Q4H PRN For Pain Ref 0 10/24/16 Albuterol HFA (Proair HFA)8.5 Gm Hfa.aer.ad2 Puffs INHALATION Q4H PRN For Shortness of Breath #1 INHALER 03/02/16 Levothyroxine 150 Mcg [id number] Mcg PO QAM #90 03/02/16 Morphine Sulfate ER 100 Mg [id number] Mg PO BID #60 03/02/16 Discontinued Scripts Cephalexin (Keflex)500 Mg [id number] Mg PO QID 14 Days Ref 0 Prov:Aida Muñoz MD 10/27/16 Amlodipine 5 Mg Tablet5 Mg PO DAILY 30 Days Prov:Guy Herrera DO 06/29/16 History History of ENT Problems?: No HEENT History: Denies:: Abnormal Airway Denture Type: None Teeth Condition: Tooth Decay Hx of Heart Problems?: Yes Cardiovascular History: Positive for:: Hypertension Denies:: Cardiac Surgery Chest Pain Congestive Heart Failure Edema Heart Murmur Irregular Heartbeat Pacemaker Thrombophlebitis Hx of Respiratory Problem?: Yes Respiratory History: Positive for:: Pneumonia Denies:: Asthma COPD Chest Surgery Dyspnea Emphysema Hemoptysis Tuberculosis Hx Neurologic Problems?: No Neurological History: Positive for:: Headaches Denies:: Alzheimer's Disease CVA Dementia Dizziness Parkinson's Disease Seizures Hx of GI Problems?: No Hx of Problems?: No Genitourinary History: Denies:: HX of Hemodialysis Kidney Stones Urinary Tract Infection HX of Peritoneal Dialysis: No Male Hx: Denies:: Prostate Problems Scrotal Mass Testicular Surgery Hx Musculoskeletal Problems?: No Musculoskeletal History: Denies:: Back Injury Joint Replacement Musculoskeletal Trauma Hx of Psycho/Social Problems?: No Psycho Social History: Positive for:: Anxiety Denies:: Bipolar Disorder Hx Depression Suicide Attempt Hx Surgeries?: Yes (tonsilectomy) Hx Any Other Health Problems?: Yes Other History: Positive for:: Hospitalization (I&D of abscesses) Thyroid Disease Denies:: Cancer Endocrine Disease History Blood Transfusions: Positive for:: Accept Blood Products? Denies:: Blood Transfuse Reaction Blood Transfusions Hx Diabetes: Yes (prediabetic)Bedside Blood Glucose: 212 Hx Alcohol Use: NoHx Substance Use: Yes (Heroin) Smoking Status: Current Every Day Smoker Have You Smoked inLast 12 mo: YesApprox How Many Cigarettes/day: 10/day Stop/Bang Treated for Sleep Apnea?: No Do You Have a CPAP Machine?: No S-Snoring: Do You Snore Loudly: Yes T-Tired: feel tired, fatigued: No O-Obsered: Observed not breath: No P-Blood Pressure: treated: Yes B- Body Mass Index > 35 kg/m2: No A- Age over 50: No N- Neck Large Circumference: No G- Gender Male: Yes QASIM Total Score: 3 QASIM Risk Assessment: Low Risk, <3 Yes Risk Assessment Category Category 1A: Patient has history of documented sleep apnea, and HAS NOT received any narcotic, sedative or anesthesia administration during this stay. Category 1B: Patient has history of documented sleep apnea, and HAS received any narcotic , sedative or anesthesia administration during this stay Category 2: Patient has SUSPECTED Obstructive Sleep Apnea, and HAS received any narcotic , sedative or anesthesia administration during this stay. Category 3: Patient has SUSPECTED Obstructive Sleep Apnea and HAS NOT received narcotic, sedative or anesthesia administration during this stay. Category 4: Outpatient in Procedural Areas with known sleep apnea or who screen positive for High Risk via the STOP/BANG questionnaire. Low Risk, <3 Yes Exam Exam Vital Signs Vital Signs Date Time Temp Pulse Resp B/P Pulse Ox O2 Delivery O2 Flow Rate FiO2 11/30/16 13:20 36.7 73 16 153/84 97 Room Air General Appearance: Alert, Oriented X3, Cooperative, No Acute Distress HEENT/AIRWAY: MP 2, Neck Movement (normal), Mouth Opening (normal) Lungs: Clear to Auscultation Heart: Regular Rate/Rhythm (distant) Meds/Labs/Diagnostics Bedside Blood Glucose: 212 Labs Test 11/25/16 02:00 11/26/16 23:20 11/27/16 05:20 11/28/16 05:00 Band Neutrophils % 1% (1-5) Lactic Acid Level 1.2mmol/L (0.4-2.0) Vancomycin Level Trough 9.0mcg/mL Phosphorus Level 4.2mg/dL (2.5-4.9) Magnesium Level 1.9mg/dL (1.6-2.6) Total Bilirubin 0.2mg/dL (0.0-1.2) Aspartate Amino Transf (AST/SGOT) 8U/L (0-50) Alanine Aminotransferase (ALT/SGPT) 5U/L (0-44) Alkaline Phosphatase 68U/L (25-150) Total Protein 5.6g/dL (6.4-8.4) Albumin 2.8g/dL (3.4-5.0) Urine Opiates Screen Negative Urine Methadone Screen Negative Urine Barbiturates Screen Negative Urine Amphetamines Screen Negative Urine Benzodiazepines Screen Negative Urine Cocaine Metabolite Screen Negative Urine Cannabinoids Screen Negative Test 11/28/16 05:30 White Blood Count 10.3th/mm3 (3.8-10.1) Red Blood Count 3.70mil/mm3 (4.40-5.80) Hemoglobin 9.1g/dL (13.8-17.2) Hematocrit 29.1% (41.0-50.0) Mean Corpuscular Volume 78.6fL (81-100) Mean Corpuscular Hemoglobin 24.6pg (27.0-35.0) Mean Corpuscular Hemoglobin Concent 31.3% (32.0-37.0) Red Cell Distribution Width 15.7% (12.3-15.4) Platelet Count 210bil/L (150-400) Neutrophils (%) (Auto) 76.9% (40-74) Lymphocytes (%) (Auto) 15.5% (14-46) Monocytes (%) (Auto) 4.1% (4-12) Eosinophils (%) (Auto) 2.0% (0-5) Basophils (%) (Auto) 0.2% (0-3) Sodium Level 139mEq/L (134-144) Potassium Level 4.6mEq/L (3.5-5.2) Chloride Level 100mEq/L (97-108) Carbon Dioxide Level 26mmol/L (18-29) Blood Urea Nitrogen 9mg/dL (6-24) Creatinine 0.56mg/dL (0.76-1.27) Estimat Glomerular Filtration Rate 167mL/min (>59) Glucose Level 143mg/dL (60-99) Calcium Level 8.9mg/dL (8.5-10.1) Procalcitonin 0.05ng/mL (0.00-0.08) Thyroid Stimulating Hormone (TSH) 5.980uIU/mL (0.450-4.500) Plan Impression Patient chart reviewed, patient interviewed and anesthestic plan with risks, benefits, and alternatives discussed, and informed consent obtained. NPO per Anesth. Guidelines: Yes ASA Physical Status: ASA3 Severe Disease (iv drug use) Anesthetic Support Modalities: Central Line (no IV access) Anesthetic Plan: GA Bene/Risks/Altern/Consents: Yes HP Complete Prior to Induction: Yes Arjun Kang MD November 30, 2016 17:42
[2016-11-30] MEDS ORDERED: Lactated Ringer's 1,000 ML IV ONE (18:05)
[2016-11-30] MEDS ORDERED: EPHEDrine Sulfate 50 mg/mL Inj IVPUSH PRN (19:10)
[2016-11-30] MEDS ORDERED: HYDROmorphone 1 mg/mL Inj IVPUSH PRN (19:10)
[2016-11-30] MEDS ORDERED: Dexamethasone 4 mg/mL Inj IVPUSH PRN (19:10)
[2016-11-30] MEDS ORDERED: Ondansetron 2 mg/mL 2 mL Inj IVPUSH PRN (19:10)
[2016-11-30] MEDS ORDERED: fentaNYL-PF 50 mCg/mL 2 mL Inj IVPUSH PRN (19:10)
[2016-11-30] MEDS ORDERED: MetoCLOpramide 5 mg/mL 2 mL Inj IVPUSH PRN (19:10)
[2016-11-30] MEDS ORDERED: Lactated Ringer's 1,000 ML IV SCH (19:10)
[2016-11-30] MEDS ORDERED: Lactated Ringer's 500 ML IV PRN (19:10)
[2016-11-30] MEDS ORDERED: Phenylephrine 10,000 mCg/mL Inj IVPUSH PRN (19:10)
--- NOTE | 2016-11-30 19:10 | PCM.ANEP1 ---
Post Anesthesia Phase 1 PACU Phase 1 Assessment Date of Service: November 30, 2016 Vital Signs see anesthesia record Vital Signs Date Time Temp Pulse Resp B/P Pulse Ox O2 Delivery O2 Flow Rate FiO2 11/30/16 13:20 36.7 73 16 153/84 97 Room Air Anesthetic Administered: GA Level of Alertness: Sleepy, easy to arouse PATEL's with Equal Strength: Yes Pain: No (Level 8 - All over) Nausea or Vomiting: Yes Cardiovascular Function and Hy: Yes Oxygen Delivery: Room Air Lungs: Clear to Auscultation Dermatome Level: Full Sensation Complications: No Follow up Care: No Patient Instructions Provided: Yes Arjun Kang MD November 30, 2016 19:10
[2016-11-30] MEDS ORDERED: HYDROmorphone 1 mg/mL Inj ONE (19:18)
--- NOTE | 2016-11-30 20:02 | DRSVH ---
PROCEDURE: X-RAY CHEST ONE VIEW, PORTABLE ([id number]) INDICATIONS: 45-year-old male with central line placement and shortness of breath. TECHNIQUE: One view of the chest was acquired. COMPARISON: [facility], , XR CHEST 1VW (PORTABLE), 01/23/2016, 0:04. [facility], CR, CHEST 1VW (PORTABLE), 04/06/2014, 0:54. [facility], , CHEST 2VW, 12/27/2011, 23:03. FINDINGS: Surgical changes and devices: Right internal jugular central venous catheter is now present, with tip at the cavoatrial junction. Lungs and pleura: No pleural effusions or pneumothorax. Lungs are clear. Mediastinum: Mediastinal contours appear normal. Heart size is normal. Bones and chest wall: No suspicious bony lesions. Overlying soft tissues appear unremarkable. IMPRESSION: Right internal jugular central venous catheter is in expected position. No pneumothorax. Dictated by: Vernon Castle M.D. on 11/30/2016 at 19:59 Approved by: Vernon Castle M.D. on 11/30/2016 at 20:00
[2016-11-30] MEDS: HYDROmorphone 1 mg/mL Inj IVPUSH PRN (21:18)
[2016-11-30] MEDS ORDERED: 0.9% Sodium Chloride 250 ML ONE (23:44)
[2016-12-01] MEDS: Sodium Chloride LOK Flush 10 mL Syringe IVFLUSH SCH ×3 (00:26→16:38)
[2016-12-01] MEDS: Heparin 5,000 Unit/mL Inj SUBQ SCH ×3 (00:26→16:39)
--- NOTE | 2016-12-01 01:22 | OP ---
[address] [address] OPERATIVE REPORT PATIENT: SINTIA OJEDA : 1970 MR#: [id number] ADMIT: 11/25/2016 JOB ID: [id number] DATE OF SURGERY: 11/30/2016 PREOPERATIVE DIAGNOSIS(ES): Left upper arm abscess. POSTOPERATIVE DIAGNOSIS(ES): Left upper arm abscess. PROCEDURE: Incision and drainage of left upper arm abscess. SURGEON: Chaz Cancino MD. INDICATIONS: A 45-year-old man with a longstanding history of multiple subcutaneous abscesses related to drug use. He underwent incision and drainage of multiple abscesses on November 25. He has developed a new abscess at the cephalad end of his deltoid abscess. He has refused to allow anybody to aspirate or incise and drain it at the bedside, and he has been placed on the OR schedule. I saw him this morning, reviewed plans for incision and drainage, and he wants to have this done in the operating room. FINDINGS: Abscess that appears to be a satellite lesion. I drained the abscess, excised overlying skin and some undermined skin, with him ending up with a wound that was 20 cm x 3 cm at the completion the procedure. PROCEDURE: The patient was brought to the operating room and central line was placed. Anesthetic with an LMA was initiated. Surgical time-out was performed. SCOAP protocol was followed. He was on therapeutic antibiotics. We prepped and draped the left arm in a sterile fashion. I then aspirated green-sow pus from this abscess and sent this off for Gram stain and culture. I now extended the incision over his deltoid region up to include this abscess cavity and then ellipsed out skin and ellipsed out some undermined skin in his previous incision. Hemostasis was achieved with cautery. We washed the wound out and packed it with saline-soaked gauze and applied a dry dressing. I will order increased wound care as the wound seems a bit .
[2016-12-01] MEDS: HYDROmorphone 1 mg/mL Inj IVPUSH PRN ×3 (01:31→14:59)
--- NOTE | 2016-12-01 01:54 | PROCED ---
[address] [address] PROCEDURE NOTE PATIENT: SINTIA OJEDA : 1970 MR#: [id number] ADMIT: 11/25/2016 JOB ID: [id number] DATE OF SERVICE: POSTOPERATIVE DIAGNOSIS(ES): PREOPERATIVE DIAGNOSIS(ES): SURGEON: PROCEDURE: Central line placement. INDICATION: No peripheral IV access. COMPLICATIONS: None. BLOOD LOSS: Minimal. PROCEDURE NOTE: The patient was advised of the risks, benefits and alternatives of central line placement, having no peripheral access despite attempts, he was open to this idea and agreed to proceed. The patient was brought to the OR. The right neck area was sterilely prepped and draped with a full body drape. I wore sterile gloves, mask, hat and sterile gown throughout the procedure. The right IJ was identified on ultrasound. A skin wheal was made with 1% lidocaine and then a catheter needle was inserted into the vein. Catheter was pushed down into the vein under ultrasound guidance. Unfortunately, blood was not returned by that and so the catheter was removed. I then attempted thin-wall needle technique. Under ultrasound guidance, was able to enter the vein again, pass the wire successfully, and then the catheter which I gravity transduced and confirmed that it was venous. Then, the opening of the vein was dilated and the triple-lumen catheter was inserted. It was inserted to 18 cm. The wire was removed. All three ports belkys back and flushed easily. A sterile dressing was then applied to the site and the procedure was completed. The patient immediately was given a general anesthesia postop chest x-ray in the recovery room, will be interpreted and confirmed there is no pneumothorax or other complication. ASHISH
--- NOTE | 2016-12-01 03:08 | NUR ---
Pain Patient has reported left shoulder pain at 7-10 after surgery, returned to [facility] at 1945. Night MD paged to clarify PO or NUTRITION MANAGER Dilaudid since patient now has IV access and both are active orders. Night MD recommended to stay with the PO Dilaudid (8mg q4 PRN) and placed a new order for IV push Dilaudid for breakthrough pain. Patient has continued to report minimal relief with PO Dilaudid, but stated that the IV Dilaudid is effective for "a little while, then wears off." Patient was also given an ice pack for left shoulder and assisted with elevating it on a pillow. Patient is appreciative of care and continually updated on when next pain medication can be given. Patient has remained alert and oriented, cooperative with care. Dressing site had minimal serous drainage when he returned to unit, has remained unchanged so far this shift.
[2016-12-01 05:59] LABS: BASOPHILS % (AUTO) 0.3 % (0-3); EOSINOPHILS % (AUTO) 2.4 % (0-5); MONOCYTES % (AUTO) 5.8 % (4-12); Mean Corpuscular Hemoglobin 24.5 pg (27.0-35.0); Mean Corpuscular Volume 79.8 fL (81-100); NEUTROPHILS % (AUTO) 72.5 % (40-74); Platelet Count 269 bil/L (150-400)
[2016-12-01 06:18] VITALS: BP 135/92; PULSE 67; RESP 18; O2SAT 96
--- NOTE | 2016-12-01 07:47 | PCM.PNMED ---
Subjective Date of Service December 01, 2016 Subjective resting comfortable in bed with ice pack to left deltoid region, no new or other problems overnight. Discussed plan with nurse this am. Exam Vital Signs Vital Sign - Last Date Time Temp Pulse Resp B/P Pulse Ox O2 Delivery O2 Flow Rate FiO2 12/01/16 06:18 36.7 67 18 135/92 96 Room Air 11/30/16 19:05 4 Intake and Output 11/30/16 11/30/16 12/01/16 Cumulative From/Thru 15:00 23:00 07:00 11/24/16 23:47 - 12/01/16 06:53 Intake Total 1000 ml 1088 ml 79355 ml Output Total 1130 ml 600 ml 49514 ml Balance -130 ml 488 ml 2566 ml Intake Oral 0 ml 1040 ml 48119 ml IV Total 1000 ml 48 ml 8247 ml Output Urine Total 1125 ml 600 ml 57421 ml Estimated Blood Loss 5 ml 5 ml # Bowel Movements 0 0 1 Exam Eyes; mark, eom intact HENT; no active lesions, well hydrated CV; no murmur regular Resp; clear anteriorally GI; soft, non acute, non tender Skin; no active rashes, there, L deltoid area bandaged and clean, all other area are bandages and healing OK so far Neuro; cn 2-12 intact, no focal sensory or motor defects. Lab and Diagnostics Result Diagram: 12/01/1651912/01/16519 X-Rays, CTs and MRIs PROCEDURE: CT ABDOMEN AND PELVIS WITH CONTRAST ([id number]) INDICATIONS: s/p colostomy, r/o abscess TECHNIQUE: After the administration of intravenous contrast, 5 mm thick sections acquired from the diaphragm to the symphysis. 5 mm coronal and sagittal reformats were acquired. For radiation dose reduction, the following was used: automated exposure control, adjustment of mA and/or kV according to patient size. COMPARISON: None. FINDINGS: Image quality: Excellent. ABDOMEN: Lung bases: Mild dependent bilateral lower lobe atelectasis. Lung bases are otherwise clear. Heart size is normal. Solid organs: Liver is normal in size and enhancement. Spleen is mildly enlarged measuring 14 cm, and is otherwise within normal limits. Gallbladder is contracted. Biliary system is non dilated. Pancreas enhances normally. No adrenal nodules. Kidneys demonstrate normal size and enhancement, without hydronephrosis. Peritoneum and bowel: Bowel loops demonstrate normal wall thickness and caliber. No free fluid or air. Normal appendix. Nodes and vessels: No retroperitoneal or mesenteric adenopathy by size criteria. Aorta and inferior vena cava are normal in size. Miscellaneous: No ventral hernias. PELVIS: Genitourinary: Bladder wall thickness is normal. Miscellaneous: No inguinal hernia. Pathologic bilateral inguinal adenopathy is present, measuring 16 mm short axis on the right, and 14 mm short axis on the left. Skin and subcutaneous defect overlying the right proximal thigh laterally is present measuring 63 mm, with surrounding fat stranding. Bones: No suspicious bony lesions. No vertebral body compression fractures. IMPRESSION: 1. No evidence of abscess. Right proximal thigh wound with surrounding cellulitis. 2. Bilateral inguinal adenopathy, presumably reactive. 3. Splenomegaly. Dictated by: Minda Valentine M.D. on 11/26/2016 at 11:29 Approved by: Minda Valentine M.D. on 11/26/2016 at 11:32 PROCEDURE: CT UPPER EXTREMITY LT W CON INDICATIONS: abscesses TECHNIQUE: After the administration of intravenous contrast, 3 mm axial sections acquired of the left upper extremity, with coronal and sagittal reformats. For radiation dose reduction, the following was used: automated exposure control, adjustment of mA and/or kV according to patient size. COMPARISON: None. FINDINGS: Image quality: Excellent. Bones: No cortical thinning or periosteal reaction. No fracture or dislocation. Soft tissues: There is a rim-enhancing fluid collection which is intermediate density centrally which measures 3.8 x 1.9 x 8.1 cm. This abuts the lateral aspect of the left deltoid musculature. There is overlying subcutaneous edema. Just superior to this rim-enhancing fluid collection is a 7 mm diameter rim enhancing centrally intermediate density fluid collection with a punctate focus of gas present (series 4, image 18). A complex, enhancing fluid collection with a central focus of gas is present overlying the triceps. This measures 3.1 x 2.1 x 4.4 cm. There are multiple shotty left axillary lymph nodes, some of which are pathologically enlarged. IMPRESSION: 1. 3 discrete enhancing fluid collections, 2 of which contain punctate foci of gas. The superior collection measures less than 1 cm in diameter and is likely not amenable to her percutaneous drainage. The inferior collection has a complex appearance suggesting a phlegmon. The middle fluid collection overlying the deltoid musculature may be amenable to percutaneous drainage. 2. No findings to suggest osteomyelitis. 3. Axillary adenopathy, likely infectious in nature. These findings are concordant with the overnight interpretation. Dictated by: Ayana Bautista M.D. on 11/25/2016 at 7:34 Approved by: Ayana Bautista M.D. on 11/25/2016 at 7:40 Assessment & Plan Fred Salgado is a 45 year old male with Hypothyroid, IV heroin abuse, MRSA and recurrent abscess presents to [facility] emergency department complaining of multiple abscesses 1. Sepsis. Present on admission, resolved -Meeting criteria with tachycardia and Leukocytosis with skin infections as source. Lactic acid normal. source: abscess/cellulitis, 2.Acute Skin Abscesses, poa, active -recurrent multiple skin abscess with cellulitis a/w IM heroin use although pt denied using it. last hospitalization last month, underwent surgical I&D 10/24 extensively. Patient was started with meropenem and IV vancomycin, switched to daptomycin and ciprofloxacin per ID consult. Final wound culture showed streptococcus Angionosus, staph aureus, staph epididermis, all sensitive to Keflex, plan was to continue for 14days. pt returned with same abscess again after he finished abx. -I&D in OR 11-26-16,, L deltoid, L hip, R hip, R distal thigh, -cultures wound show strep, MSSA, enterococus, -discussed with Dr. Ziegler, will switch to PO zyvox 660 bid for 2 weeks, ( start 11/29/16) -pickle solution maker tomorrow -New Fluctuant area L deltoid area, I&D yesterday, await culture (prelim gram pos), continue zyvox (pt does have IV access now consider changing to IV 3. Acute Pain management, poa, active -continue dilaudid PO 8 q 4 hours prn -1 mg IV dilaudid only for dressing changes -nurse to watch patient clossely for any pain out of control and will call me if needed -appears well controlled today 3 Hypothyroidism,poa, chronic -continuing Synthroid 4 Heroine Abuse,poa, chronic -appreciate horse stud worker to provide resources 5 Nicotine dependence, poa, active -Cessation discussed and encouraged, -Nicotine patch on request dvt ppx: HSQ q8h diet: general dispo: pending, 3-4more days, VTE Prophylaxis: Sub-Q Heparin (Unfractionated) Resuscitation Status: CPR: Attempt Resuscitation Daija Márquez MD December 01, 2016 07:47
[2016-12-01] MEDS: Dextrose 5% 500 ML IV SCH (07:54)
[2016-12-01] MEDS ORDERED: Sodium Chloride LOK Flush 10 mL Syringe IVFLUSH PRN ×2 (09:35)
--- NOTE | 2016-12-01 09:44 | PROG NOTE ---
[address] [address] PROGRESS NOTE PATIENT: SINTIA OJEDA : 1970 MR#: [id number] ADMIT: 11/25/2016 JOB ID: [id number] DATE: 12/01/2016 INFECTIOUS DISEASE FOLLOW UP NOTE: REASON FOR FOLLOWUP: Multiple abscesses both lower extremities as well as left deltoid. INTERVAL HISTORY: Yesterday, the patient was back to the operating room for drainage of a superior left deltoid abscess which had come up since his hospital admission. This was uneventful though the patient did have another triple lumen central venous catheter placed. This morning he reports pain at the site of his deltoid surgery but notes his thigh incisions are becoming gradually less painful. He has had no fevers or sweats, but did note a bit of a chill. No cough. No abdominal pain. The patient also tells me he wants to go home today. PHYSICAL EXAMINATION: Reveals an afebrile gentleman, temperature 36.7. His pulse in the 60s, respiratory rate 18, blood pressure 135/92. He is saturating well on room air and in no acute distress. Oral cavity negative. Lungs relatively clear. Cardiac tones without new murmur. Abdomen benign. The resident on surgery and I looked at his wounds. His thigh wounds appear to be healing well and without evidence of superinfection. His deltoid wound is packed but also appears free of residual infection. LABORATORIES: Include a white count of 11,000 today, postop day one. Creatinine 0.72. Procalcitonin remains less than 0.1. The patient's micro data is unchanged so far. We do have a Gram stain from the new deltoid abscess which shows many polys and some gram-positive cocci. The culture is not yet done but I suspect it will be Staph aureus, as all of our other four cultures had Staph aureus. IMPRESSION: This remains an absolutely bizarre case of a gentleman who is admitted on an ongoing basis with abscesses occurring around his upper thighs bilaterally and his left deltoid. The patient used to be a soft tissue heroin injector but says he has not done that for many months and yet continues to develop these abscesses in three locations each time. Once again, the predominant pathogen here is Staph aureus and I am inclined to continue our treatment with oral Zyvox. RECOMMENDATIONS: 1. The patient could be discharged at any time from an Infectious Disease point of view as long as good wound care is set up. Note that he lives in [facility] and usually gets his wound care in [place]. 2. I would complete a two week course of oral Zyvox. 3. ID will go ahead and sign off at this time.
[2016-12-01 10:28] VITALS: BP 154/69; PULSE 71; RESP 18; O2SAT 96
--- NOTE | 2016-12-01 14:36 | NUR ---
Social Work; Readiness for d/c Data: Pt is on day 6 of hospitalization. EMR reviewed. Pt continues to decline SNF and HH. states pt will d/c with POABX. No d/c planning needs anticipated. STORY EDITOR will continue to follow if needs arise. Plan: Pt will d/c home via POV when medically stable. STORY EDITOR will continue to follow. PAULA Garvey
--- NOTE | 2016-12-01 15:15 | NUR ---
Pain/dressing change Wound care on unit, pt premedicated with 1 mg IV Dilaudid prior to removal of dressings. Pt tolerated dressing change well, did wince, frown and brace limbs through out. Pt encouraged to take daily shower, per order from MD. Pt reports is planning on "doing that tonight". Call light with in reach, will continue to monitor.
--- NOTE | 2016-12-01 15:40 | PCM.PNSURG ---
Subjective Date of Service: December 01, 2016 Date of Service: December 01, 2016 Visit Information: Reason for Visit Multiple Deep Tissue Abscess Surgery/Surgery Date Post-Op Day # 1 s/p Incision and drainage of left upper arm abscess and POD # 6 s/p Incision and drainage of left deltoid, left hip, right hip, and right distal thigh abscesses Date of Admission: November 25, 2016 at 04:19 Hospital Day # Subjective: Patient notes improved pain control since surgery yesterday. Denies fevers or chills. Postop General: No Shortness of Breath, No Chest Pain Gastrointestinal: Tolerating Oral Feedings Pain Management: IV Push, Good Pain Control Objective Objective well developed male in no apparent distress, lying comfortably in bed looking at smartphone. Vital Sign- Last 8 Hours Date Time Temp Pulse Resp B/P Pulse Ox O2 Delivery O2 Flow Rate FiO2 12/01/16 10:28 36.6 71 18 154/69 96 Room Air Intake and Output- Last 8 Hour 12/01/16 Cumulative From/Thru 07:00 11/24/16 23:47 - 12/01/16 06:53 Intake Total 1088 ml 54841 ml Output Total 600 ml 96994 ml Balance 488 ml 2566 ml Intake Oral 1040 ml 13470 ml IV Total 48 ml 8247 ml Output Urine Total 600 ml 79078 ml Estimated Blood Loss 5 ml # Bowel Movements 0 1 General: Alert, Oriented X3, No Acute Distress Lungs: Clear to Auscultation Heart: Regular Rate/Rhythm Abdomen: Benign SURGICAL WOUND : Wound Location/Description 1. extended open longitudinal wound on left upper deltoid. No erythema.Tender to palpation. 2. Left hip wound, right hip wound, right distal thigh wound,and punctate wound right thigh central lateral thigh. No erythema, minimal serosanguinous discharge. Wound General Appearence: No Erythema, No Discharge, Unapproximated, Open Dressing & Drainage Status: Changed, No Purulent Drainage, No Odor Result Diagram: 12/01/1651912/01/16519 Assessment & Plan Impression slow progression of multiple abscesses requiring extensive incision and drainage procedures. Improved pain control. Afebrile but continued leukocytosis though improved from baseline. Problems: Plan Continue daily dressing changes. Continue antibiotics. Consider discharge in 1- 2 days. Pain Management: Dilaudid push VTE Prophylaxis: Sub-Q Enoxaparin Resuscitation Status: CPR: Attempt Resuscitation Cristofer Pedroza PA-C December 01, 2016 15:40
--- NOTE | 2016-12-01 16:20 | NUR ---
Wound Note Patient seen at bedside. Left deltoid has been opened further by Dr Cancino now measures 12 cm x 3 cm x 1.5 cm. All wounds cleaned with ns moist gauze and irrigated with saline, repacked with ns moist gauze covered with abd pads and tape. Patient tolerated treatment well. Dr Cancino has recommended daily showers, to this I would add cleanse with Hibiclens soap and redress with saline moist gauze and abd pads. Patient is scheduled to follow up at the wound center 12/06/[address] Dale.
[2016-12-01 21:28] VITALS: BP 115/66; PULSE 77; RESP 18; O2SAT 97
[2016-12-01] MEDS ORDERED: 0.9% Sodium Chloride 250 ML ONE (22:42)
[2016-12-01 23:17] VITALS: BP 130/63; PULSE 64; RESP 18; O2SAT 97
--- NOTE | 2016-12-01 23:52 | NUR ---
Transfer Patient transferred to room 1006 at about 2315. Phone report given to Kristin Simeon RN, before patient was moved. All belongings transferred with patient, vital signs stable at time of transfer.
[2016-12-02] MEDS: Sodium Chloride LOK Flush 10 mL Syringe IVFLUSH SCH ×3 (00:18→16:30)
[2016-12-02] MEDS: Heparin 5,000 Unit/mL Inj SUBQ SCH ×3 (00:18→17:10)
--- NOTE | 2016-12-02 02:39 | NUR ---
Transfer Patient arrived to room 1006 around 2315 via hospital bed. A&Ox3, answering questions appropriately. Complaining of pain to I&D sites, dressings C/D/I. IJ in place and infusing. Oriented to room and call light. Placed on contact precautions for MRSA infection. Belongings locked in closet by security.
[2016-12-02 04:21] VITALS: BP 120/70; PULSE 62; RESP 18; O2SAT 96
[2016-12-02 04:25] LABS: BASOPHILS % (AUTO) 0.3 % (0-3); EOSINOPHILS % (AUTO) 2.5 % (0-5); MONOCYTES % (AUTO) 5.4 % (4-12); Mean Corpuscular Hemoglobin 24.7 pg (27.0-35.0); Mean Corpuscular Volume 79.2 fL (81-100); NEUTROPHILS % (AUTO) 71.9 % (40-74); Platelet Count 249 bil/L (150-400)
[2016-12-02 08:30] VITALS: BP 133/72; PULSE 62; RESP 16; O2SAT 96
--- NOTE | 2016-12-02 11:30 | NUR ---
SHERWIN signed. Jeanie Mandujano DIGITAL MARKETING PROGRAM MANAGER
--- NOTE | 2016-12-02 12:05 | PCM.PNMED ---
Subjective Date of Service December 02, 2016 Subjective Underwent incision and drainage of left arm abscess on 12/01. Afebrile. Pain controlled. Now has IV access Exam Vital Signs Vital Sign - Last Date Time Temp Pulse Resp B/P Pulse Ox O2 Delivery O2 Flow Rate FiO2 12/02/16 08:30 36.6 62 16 133/72 96 Room Air 11/30/16 19:05 4 Intake and Output 12/01/16 12/01/16 12/02/16 Cumulative From/Thru 14:59 22:59 06:59 11/24/16 23:47 - 12/02/16 05:50 Intake Total 1136 ml 1423 ml 51922 ml Output Total 1100 ml 1400 ml 60891 ml Balance 36 ml 23 ml 2625 ml Intake Oral 1136 ml 1308 ml 94233 ml IV Total 115 ml 8362 ml Output Urine Total 1100 ml 1400 ml 98577 ml Estimated Blood Loss 5 ml # Bowel Movements 0 0 1 Exam Eyes; mark, eom intact HENT; no active lesions, well hydrated CV; no murmur regular Resp; clear anteriorally GI; soft, non acute, non tender Skin; no active rashes, there, L deltoid area bandaged and clean, all other area are bandages and healing OK so far Neuro; cn 2-12 intact, no focal sensory or motor defects. IVs and Medications Medications Reviewed: Medications were reviewed in detail Lab and Diagnostics Result Diagram: 12/02/16 0415 12/01/16 0520 X-Rays, CTs and MRIs PROCEDURE: CT ABDOMEN AND PELVIS WITH CONTRAST ([id number]) INDICATIONS: s/p colostomy, r/o abscess TECHNIQUE: After the administration of intravenous contrast, 5 mm thick sections acquired from the diaphragm to the symphysis. 5 mm coronal and sagittal reformats were acquired. For radiation dose reduction, the following was used: automated exposure control, adjustment of mA and/or kV according to patient size. COMPARISON: None. FINDINGS: Image quality: Excellent. ABDOMEN: Lung bases: Mild dependent bilateral lower lobe atelectasis. Lung bases are otherwise clear. Heart size is normal. Solid organs: Liver is normal in size and enhancement. Spleen is mildly enlarged measuring 14 cm, and is otherwise within normal limits. Gallbladder is contracted. Biliary system is non dilated. Pancreas enhances normally. No adrenal nodules. Kidneys demonstrate normal size and enhancement, without hydronephrosis. Peritoneum and bowel: Bowel loops demonstrate normal wall thickness and caliber. No free fluid or air. Normal appendix. Nodes and vessels: No retroperitoneal or mesenteric adenopathy by size criteria. Aorta and inferior vena cava are normal in size. Miscellaneous: No ventral hernias. PELVIS: Genitourinary: Bladder wall thickness is normal. Miscellaneous: No inguinal hernia. Pathologic bilateral inguinal adenopathy is present, measuring 16 mm short axis on the right, and 14 mm short axis on the left. Skin and subcutaneous defect overlying the right proximal thigh laterally is present measuring 63 mm, with surrounding fat stranding. Bones: No suspicious bony lesions. No vertebral body compression fractures. IMPRESSION: 1. No evidence of abscess. Right proximal thigh wound with surrounding cellulitis. 2. Bilateral inguinal adenopathy, presumably reactive. 3. Splenomegaly. Dictated by: Minda Valentine M.D. on 11/26/2016 at 11:29 Approved by: Minda Valentine M.D. on 11/26/2016 at 11:32 PROCEDURE: CT UPPER EXTREMITY LT W CON INDICATIONS: abscesses TECHNIQUE: After the administration of intravenous contrast, 3 mm axial sections acquired of the left upper extremity, with coronal and sagittal reformats. For radiation dose reduction, the following was used: automated exposure control, adjustment of mA and/or kV according to patient size. COMPARISON: None. FINDINGS: Image quality: Excellent. Bones: No cortical thinning or periosteal reaction. No fracture or dislocation. Soft tissues: There is a rim-enhancing fluid collection which is intermediate density centrally which measures 3.8 x 1.9 x 8.1 cm. This abuts the lateral aspect of the left deltoid musculature. There is overlying subcutaneous edema. Just superior to this rim-enhancing fluid collection is a 7 mm diameter rim enhancing centrally intermediate density fluid collection with a punctate focus of gas present (series 4, image 18). A complex, enhancing fluid collection with a central focus of gas is present overlying the triceps. This measures 3.1 x 2.1 x 4.4 cm. There are multiple shotty left axillary lymph nodes, some of which are pathologically enlarged. IMPRESSION: 1. 3 discrete enhancing fluid collections, 2 of which contain punctate foci of gas. The superior collection measures less than 1 cm in diameter and is likely not amenable to her percutaneous drainage. The inferior collection has a complex appearance suggesting a phlegmon. The middle fluid collection overlying the deltoid musculature may be amenable to percutaneous drainage. 2. No findings to suggest osteomyelitis. 3. Axillary adenopathy, likely infectious in nature. These findings are concordant with the overnight interpretation. Dictated by: Ayana Bautista M.D. on 11/25/2016 at 7:34 Approved by: Ayana Bautista M.D. on 11/25/2016 at 7:40 Additional Diagnostics DATE OF SURGERY: 11/30/2016 PREOPERATIVE DIAGNOSIS(ES): Left upper arm abscess. POSTOPERATIVE DIAGNOSIS(ES): Left upper arm abscess. PROCEDURE: Incision and drainage of left upper arm abscess. SURGEON: Chaz Cancino MD. DATE OF SURGERY: 11/25/2016 SURGEON: Stanislaw Dale MD. PUBLIC EMPLOYMENT MEDIATOR: None. ANESTHESIA: General. PREOPERATIVE DIAGNOSIS(ES): Multiple abscesses of the left deltoid, left hip, right hip, and right distal thigh. POSTOPERATIVE DIAGNOSIS(ES): Multiple abscesses of the left deltoid, left hip, right hip, and right distal thigh. PROCEDURE: Incision and drainage of left deltoid, left hip, right hip, and right distal thigh abscesses. Assessment & Plan Fred Salgado is a 45 year old male with Hypothyroid, IV heroin abuse, MRSA and recurrent abscess presents to [facility] emergency department complaining of multiple abscesses 1. Sepsis. Present on admission, resolved -Meeting criteria with tachycardia and Leukocytosis with skin infections as source. Lactic acid normal. source: abscess/cellulitis, 2.Acute Skin Abscesses, poa, active -recurrent multiple skin abscess with cellulitis a/w IM heroin use although pt denied using it. last hospitalization last month, underwent surgical I&D 10/24 extensively. Patient was started with meropenem and IV vancomycin, switched to daptomycin and ciprofloxacin per ID consult. Final wound culture showed streptococcus Angionosus, staph aureus, staph epididermis, all sensitive to Keflex, plan was to continue for 14days. pt returned with same abscess again after he finished abx. -I&D in OR 11-26-16,, L deltoid, L hip, R hip, R distal thigh, -I&D left deltoid 12/01/16, cultures pending -cultures wound show strep, MSSA, enterococus, -discussed with Dr. Ziegler, continue PO zyvox 660 bid for 2 weeks, (start ). Patient has IV access now. No need to switch to IV per ID. Culture from left deltoid pending but probably same organism. adjust antibiotics if new organism identified -wound specialist tomorrow 3. Acute Pain management, poa, active -continue dilaudid PO 8 q 4 hours prn -1 mg IV dilaudid only for dressing changes -appears well controlled today 3 Hypothyroidism,poa, chronic -continuing Synthroid -TSH 5.98, continue Synthroid 4 Heroine Abuse,poa, chronic -appreciate steam table worker to provide resources 5 Nicotine dependence, poa, active -Cessation discussed and encouraged, -Nicotine patch on request 6. Diabetes, new diagnosis -A1c 7.1 -Sliding-scale dvt ppx: HSQ q8h diet: general dispo: pending, 3-4more days, VTE Prophylaxis: Sub-Q Enoxaparin Resuscitation Status: CPR: Attempt Resuscitation Jayson Mathews MD December 02, 2016 12:05
[2016-12-02 12:36] VITALS: BP 136/84; PULSE 72; RESP 16; O2SAT 97
--- NOTE | 2016-12-02 13:01 | NUR ---
mid-shift note pt independent in room, tolerates ambulation well. Gave himself a bed bath with wet wipes. Complaining of 9 out of 10 pain, gave 8mg of PO Dilaudid. Refusing dressing change without IV Dilaudid. Currently asking to be discharged to home. Dr. Mathews spoke to pt and educated him on wanting to wait for wound culture results with the plan of discharge to tomorrow with appropriate antibiotics. Patient agreed to plan and agrees to stay one more night pending wound culture results. VS stable.
--- NOTE | 2016-12-02 13:07 | NUR ---
Mid shift note Notified Dr. Mathews that patient asking r/t discharge home. Dr. Mathews spoke to the patient and patient agreed to stay.
--- NOTE | 2016-12-02 13:56 | NUR ---
Discharge note Provided pt with discharge instructions. Patient verbalized understanding of new medications, AUREA drain/care instructions, and follow up appointment. Patient understands to limit activity. Instructed patient in AUREA drain care and pt verbalizes and is able to demonstrate understanding; 10ml of serosanguineous fluid emptied. Transported pt in wheel chair to 's personal vehicle. Addendum: 12/02/16 at 1502 by MILAGRO BARRERA Please disregard this note for Fred Salgado. The above note is in regards to another patient, pt Fredo.R. that was in room 1004 and was discharged approximately 1345 on 12/02/16.
[2016-12-02] MEDS: HYDROmorphone 1 mg/mL Inj IVPUSH PRN (14:46)
--- NOTE | 2016-12-02 15:28 | NUR ---
NUTRITION FOLLOW-UP: ASSESS: 45 YO male admitted with multiple deep tissue abscesses; last I&D 12/01. PO intake erratic but improved. PMHx: Hypothyroidism, prediabetes, chronic pain, HTN, asthma, COPD, daily cigarette use, IV drug use. LABS: No labs ordered today. MEDS: Reviewed. GI: BM x 1 (11/28). SKIN: L deltoid, L and R hips, R distal thigh, s/p I and D for deep tissue abscesses. WT: 99.0 kg, BMI 31.0 kg/m2. Admit weight: 94.5 kg. DIET: Consistent carb. PO intake 10 - 100% trays. EST. NEEDS: 8025-9675 kcals (25-30 kcals/kg BW), 115-140 g protein (1.2-1.5 g/kg BW) NUTRITION DIAGNOSIS: 1) Increased nutrient needs related to increased demand for nutrients as evidenced by multiple skin issues - PERSISTS. NUTRITION INTERVENTION: 1) Will continue Glucerna TID between meals. MONITOR / EVAL: PO intake, labs, nutritional status. Follow per moderate nutritional risk guidelines.
--- NOTE | 2016-12-02 16:06 | NUR ---
Wound dressing change Patient had shower this shift prior to dressing change. PRN IV Dilaudid given as ordered before dressing changes. Dressings changed to left hip, left deltoid, right hip, and right distal thigh as ordered with some discomfort/pain during dressing change. per orders dressing changes BID daily. patient prefers next dressing change before bed time. Stable vital signs. Right IJ dressing clean, dry and intact. uses urinal. BM this shift per patient report. Stable mood. Call light with in reach for safety. Continue to monitor for pain, safety, wound dressing changes, and vital signs.
--- NOTE | 2016-12-02 16:45 | NUR ---
Dressing change Primary nurse administered IV Dilaudid prior to change. Changed wound dressings to left shoulder, left hip, right hip, and right thigh x2. Applied 1 wet 4x4 to each wounded and covered each with an ABD pad (using paper tape). Patient tolerated procedure well with reported shooting pain at each site. Verbalized understanding of dressing change for when he discharges. Wounds were beefy red with minimal serosanguineous/ purulent drainage.
--- NOTE | 2016-12-02 16:55 | PROG NOTE ---
[address] [address] PROGRESS NOTE PATIENT: SINTIA OJEDA : 1970 MR#: [id number] ADMIT: 11/25/2016 JOB ID: [id number] DATE: 12/02/2016 The patient is afebrile with stable vital signs. Patient's wounds are reportedly clean per nursing notes. He has no new concerns other than he would like to leave the hospital. From General Surgery Service point of view, patient could be discharged. Will discuss with Internal Medicine.
[2016-12-02 17:17] VITALS: BP 139/74; PULSE 77; RESP 16; O2SAT 97
[2016-12-02 19:55] VITALS: BP 107/65; PULSE 80; RESP 16; O2SAT 96
--- NOTE | 2016-12-02 22:08 | NUR ---
WOUND CARE; Pt aware of dsg changes bid. Stated he wanted to wait until a.m. Pt stated "I don't think I need to have my dressings changed tonight". "I'm going home tomorrow." upon discussing when he wants his wound dsg changed and iv dilaudid given. Addendum: 12/02/16 at 2213 by DAVIS HOOVER RN Earlier dsg change had been approx. 1500.
[2016-12-03] MEDS: Heparin 5,000 Unit/mL Inj SUBQ SCH ×2 (00:14→08:06)
[2016-12-03] MEDS: Sodium Chloride LOK Flush 10 mL Syringe IVFLUSH SCH ×2 (00:40→08:07)
[2016-12-03] MEDS ORDERED: 0.9% Sodium Chloride 250 ML ONE (01:40)
--- NOTE | 2016-12-03 02:22 | NUR ---
PAIN; requesting dilaudid q 3 1/2 to 4 hours for c/o mostly left shoulder pain with effectiveness. Placed arm up on pillow. Refused offer of ice to left shoulder. Snacking frequently during the night.
[2016-12-03 05:20] VITALS: BP 110/70; PULSE 66; RESP 16; O2SAT 96
--- NOTE | 2016-12-03 11:16 | NUR ---
Social Work- Readiness for Discharge Data: EMR reviewed. Pt is on day 8 of hospitalization for multiple deep tissue abscesses. Pt is likely to discharge today, [employer] awaiting orders. Pt is eligible for [facility] transportation, [employer] to provide transportation home when orders are received. PT saw patient on 11/30, recommending pt is cleared for home. [employer] met with pt at bedside regarding discharge, pt agreeable and is very ready to go home. Pt declined having a need for a pharmacy stop off with [facility]. Pt declined any CD resources, stating again "there is no drug use." Pt requested [employer] look into getting bandages covered through [facility] in [place]. T/C to [facility], pharmacist stated that [facility] has no medical supply contract to bill insurance. Recommended pt call [facility] in [place] [phone]. [employer] provided this information to pt. All updated and agreeable to plan. Pt to discharge home via [facility] transportation, no discharge needs identified at this time. SW will continue to follow. PAULA Schwab
[2016-12-03] MEDS: HYDROmorphone 1 mg/mL Inj IVPUSH PRN (12:25)
--- NOTE | 2016-12-03 12:46 | NUR ---
Wound dressing change Administered PRN IV Dilaudid prior to dressing change. Changed wound dressings to left shoulder, left hip, right hip, and right thigh. Applied 1 wet 4x4 to each wounded and covered each with an ABD pad (using paper tape). Tolerated well dressing change. appearance of wound beefy red with no to very minimal drainage. hand bindery assembly worker spoke to patient.
--- NOTE | 2016-12-03 14:49 | PCM.DC.MED ---
Discharge Summary Date of Service December 03, 2016 Dates of Hospitalization Date of Hospital Admission November 25, 2016 at 04:19 Date of Discharge: December 03, 2016 Providers: Admitting Physician: Carl Wood MD Primary Care Physician: Collin Garcia MD Attending Physician: Carl Wood MD Diagnosis at Time of Discharge Diagnosis at Time of Discharge 1. Sepsis. Present on admission, resolved 2..Acute Skin Abscesses, poa, active 3. Acute Pain management, poa, active 4. Hypothyroidism,poa, chronic 5. Heroine Abuse,poa, chronic 6. Nicotine dependence, poa, active Consultations CONSULTATION REPORT PATIENT: SINTIA SALGADO : 1970 MR#: [id number] ADMIT: 11/25/2016 JOB ID: [id number] DATE OF SERVICE: 11/27/[address] Márquez for this timely consult. REASON FOR CONSULTATION: Recurrent soft tissue abscesses. HISTORY OF PRESENT ILLNESS: The patient is a 45-year-old gentleman, known to me from multiple prior admissions. The patient has had recurrent soft tissue infections which have been frequent and severe over the past year or so. This is, by my count, his 7th admission to this facility for complicated skin and soft tissue infections with abscess formation in the last 10 months. The organisms isolated from these many infections have included MRSA, MSSA, Strep anginosus, Prevotella, Enterobacter and Klebsiella. These abscesses tend to be very mimetic and occur typically in both thighs, as well as his left upper arm. The patient does have a longstanding history of substance abuse, but over the past few months, he says he has completely quit and he has no idea why these recur with such rapidity and severity. When I last saw him in the hospital last month, he had once again abscesses in both upper thighs as well as his left deltoid area. These were treated as they typically are with incision and drainage and he was managed with appropriate antibiotics. I have been reluctant to place a PICC or port-type line for long-term IV antibiotics because the patient does have a history, at least a year or so ago, of an illicit injection drug use. During his last admission, he received daptomycin and was eventually discharged with oral Keflex for what was proven to be A Strep anginosus process. The patient states for the past couple weeks he has been faithfully taking his antibiotics and they finished only around November 20. The patient tells me that within just a few days of stopping his antibiotics he developed swelling, tenderness, and pain over both right upper lateral thighs, as well as his left deltoid. He adamantly denies once again using any IM or subcutaneous illicit drugs in these areas. He reports that with this swelling in his thighs and left deltoid, he developed fevers, chills, sweats, headache, photophobia, sore throat, nausea and generalized malaise. He did feel a little bit short of breath but no significant cough. He had no vomiting, diarrhea, or dysuria with these other symptoms. Because of these worsening symptoms, he once again presented to the hospital and was admitted on November 25. He states the only narcotics he has been using are the Percocet, which he is prescribed. Since admission, now 48 hours ago, the patient has been to the operating room where he has had an extensive debriding surgery of both thighs and the left deltoid area. When seen this afternoon with Jaciel [facility], the patient reports a great deal of pain. We removed the packing and carefully examined all his three wounds. During this time, the patient complained of great pain, but otherwise voiced no new symptoms over admission. He stated that overall, he is starting to feel a bit better in terms of the fevers, chills, and sweats. He stated that he and his girlfriend or his , who is an SERVICE SUPPORT REPRESENTATIVE, believe that he would benefit from a prolonged course of IV antibiotics at home. PAST MEDICAL HISTORY: 1. Recurrent subcutaneous and intramuscular infections, involving both thighs and the left deltoid. 2. Hypothyroidism. 3. Borderline diabetes. 4. 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 5. Hypertension. 6. Asthma/COPD. ALLERGIES: Include: 1. SULFA DRUGS. 2. PENICILLIN. 3. DALBAVANCIN. Note that the patient had severe muscle spasms with dalbavancin during an earlier admission. SOCIAL HISTORY: The patient says he stopped using injection heroin in the spring and has been clean for almost a year. He does not drink alcohol but he continues to be a significant cigarette smoker. FAMILY HISTORY: Negative for TB in first- or second-degree relatives. REVIEW OF SYSTEMS: Was done. The patient says he has had on-and-off headaches though they are getting a bit better. He also notes he has had photophobia and watering of the eyes with this process over the past several days. He reports mild sore throat but no trouble swallowing. No new or acute dental problems are reported. The patient has not had stiff neck. He is mildly short of breath sometimes but no real change control specialist baseline. No significant cough. No chest pain. He has had nausea. In addition to the above-mentioned symptoms, he reports fevers, chills, and night sweats, which are starting to improve. He has had tremendous pain in both lateral upper thighs as well as left deltoid. He has chronic hip pain which is an ongoing problem which has not changed. He has not noticed any significant swelling in his lower extremities and he has not noticed any skin rash except for that connected to the abscesses which have just been drained. Remainder of review of systems negative. PHYSICAL EXAMINATION: Reveals an afebrile gentleman, temperature 36.6, pulse 57, respiratory rate 16, blood pressure 136/79. He is saturating well on room air. Examination the head: No trauma. Eyes without conjunctivitis. Nose: Normal. Oral cavity without thrush or hairy leukoplakia. Dentition is fairly poor. Neck: Supple without adenopathy. The patient's sinuses are nontender. Lungs quite clear. Cardiac tones: Regular rate and rhythm without abnormality. The abdomen is soft and relatively nontender. No hepatosplenomegaly is appreciated. No suprapubic fullness noted. The left deltoid has just been re-dressed, but according to Jaciel, who just drained who just repacked it, it is a fairly small wound and is clean without evidence of cellulitis. Over the bilateral upper thighs, however, there are large deep wounds, measuring 10 cm or more in length, and approximately 6 cm across. These wounds are deep and we removed the packing. There was no evidence of ongoing infection, but there is certainly a great deal of raw tissue there. Examination of the lower extremities below the knees show scattered shallow abrasions but without evidence of ongoing infection anywhere else. His feet are well perfused and warm without skin breakdown or heel ulcerations. There is no significant peripheral edema. Neurologically, the patient is completely intact. LABORATORIES: Include white count 7300, platelets 174, creatinine 0.48. LFTs are normal. We have no recent toxicology. Cultures from this admission include two blood cultures that are negative and four separate cultures taken from these abscesses, all of which are growing Staph aureus. During prior admissions, the wounds have grown Strep anginosus, Staph aureus, MRSA, Klebsiella, and Enterobacter. Prevotella was isolated as well on at least one occasion. IMAGING: On this admission, includes an abdominal CT that showed no evidence of abscess, though it did show right proximal thigh wound with cellulitis. Bilateral inguinal adenopathy is noted as well as a large spleen. Lower extremity CTs were also done on admission. The right lower extremity shows diffuse cellulitis with an abscess and gas. No fasciitis was noted. The left, cellulitis and discrete abscess of the left hip, multifocal intramuscular abscess is seen, and the left upper extremity CT shows three discrete fluid collections, two with gas. There is an appearance of phlegmon there. No findings of osteo. IMPRESSION: This patient is admitted once again with an extraordinary collection of soft tissue infections involving bilateral upper thigh, as well as left deltoid. Some of these fluid collections involve gas and it is unclear where this gas is due to gas formation by micro-organisms or by injection into the area. As has been the case in his last few admissions, the patient says he no longer injects IM or subcu drugs and he has no explanation for these recurrent severe abscesses other than he needs a peripherally-inserted central catheter line and a longer course of antibiotics. This is a difficult case to know how to manage. At this point, we have Staph aureus growing from cultures from all these sites and this is not typically a gas-forming organism. This leads me to wonder about the possibility of inoculation of gas into the tissues perhaps in an attempt to use drugs though again the patient adamantly denies that. RECOMMENDATIONS: 1. Will continue with vancomycin he is receiving at this time. 2. Flagyl will be added to his regimen to cover gas-producing organisms. We can use oral Flagyl in this circumstance, 500 mg every 8 hours. 3. We await the additional final cultures. 4. I have also ordered a urine tox screen as well as a nasal MRSA swab. 5. Will continue to follow this complex patient with you. I am reluctant to give a PICC line to a patient who as recently as a year ago was a known heroin user. Also concerning to me is how he continues to get this extraordinary sequence of soft tissue infections without auto-inoculation and that is an additional concern about sending him home with an IV. Unfortunately, we can no longer use dalbavancin in this patient, which was an easy alternative for a while, and he has multiple allergies which limit our oral antibiotic selections, including allergies to SULFA, DALBAVANCIN, ERYTHROMYCIN and PENICILLIN. Thank you very much for this consult. I will be following closely with you. Juan Pablo Ziegler MD 11/27/16 1545 PROGRESS NOTE PATIENT: SINTIA SALGADO : 1970 MR#: [id number] ADMIT: 11/25/2016 JOB ID: [id number] DATE: 12/01/2016 INFECTIOUS DISEASE FOLLOW UP NOTE: REASON FOR FOLLOWUP: Multiple abscesses both lower extremities as well as left deltoid. INTERVAL HISTORY: Yesterday, the patient was back to the operating room for drainage of a superior left deltoid abscess which had come up since his hospital admission. This was uneventful though the patient did have another triple lumen central venous catheter placed. This morning he reports pain at the site of his deltoid surgery but notes his thigh incisions are becoming gradually less painful. He has had no fevers or sweats, but did note a bit of a chill. No cough. No abdominal pain. The patient also tells me he wants to go home today. PHYSICAL EXAMINATION: Reveals an afebrile gentleman, temperature 36.7. His pulse in the 60s, respiratory rate 18, blood pressure 135/92. He is saturating well on room air and in no acute distress. Oral cavity negative. Lungs relatively clear. Cardiac tones without new murmur. Abdomen benign. The resident on surgery and I looked at his wounds. His thigh wounds appear to be healing well and without evidence of superinfection. His deltoid wound is packed but also appears free of residual infection. LABORATORIES: Include a white count of 11,000 today, postop day one. Creatinine 0.72. Procalcitonin remains less than 0.1. The patient's micro data is unchanged so far. We do have a Gram stain from the new deltoid abscess which shows many polys and some gram-positive cocci. The culture is not yet done but I suspect it will be Staph aureus, as all of our other four cultures had Staph aureus. IMPRESSION: This remains an absolutely bizarre case of a gentleman who is admitted on an ongoing basis with abscesses occurring around his upper thighs bilaterally and his left deltoid. The patient used to be a soft tissue heroin injector but says he has not done that for many months and yet continues to develop these abscesses in three locations each time. Once again, the predominant pathogen here is Staph aureus and I am inclined to continue our treatment with oral Zyvox. RECOMMENDATIONS: 1. The patient could be discharged at any time from an Infectious Disease point of view as long as good wound care is set up. Note that he lives in [facility] and usually gets his wound care in [place]. 2. I would complete a two week course of oral Zyvox. 3. ID will go ahead and sign off at this time. Juan Pablo Ziegler MD 12/01/16 0903 Procedures XRay, CTs & MRIs PROCEDURE: CT ABDOMEN AND PELVIS WITH CONTRAST ([id number]) INDICATIONS: s/p colostomy, r/o abscess TECHNIQUE: After the administration of intravenous contrast, 5 mm thick sections acquired from the diaphragm to the symphysis. 5 mm coronal and sagittal reformats were acquired. For radiation dose reduction, the following was used: automated exposure control, adjustment of mA and/or kV according to patient size. COMPARISON: None. FINDINGS: Image quality: Excellent. ABDOMEN: Lung bases: Mild dependent bilateral lower lobe atelectasis. Lung bases are otherwise clear. Heart size is normal. Solid organs: Liver is normal in size and enhancement. Spleen is mildly enlarged measuring 14 cm, and is otherwise within normal limits. Gallbladder is contracted. Biliary system is non dilated. Pancreas enhances normally. No adrenal nodules. Kidneys demonstrate normal size and enhancement, without hydronephrosis. Peritoneum and bowel: Bowel loops demonstrate normal wall thickness and caliber. No free fluid or air. Normal appendix. Nodes and vessels: No retroperitoneal or mesenteric adenopathy by size criteria. Aorta and inferior vena cava are normal in size. Miscellaneous: No ventral hernias. PELVIS: Genitourinary: Bladder wall thickness is normal. Miscellaneous: No inguinal hernia. Pathologic bilateral inguinal adenopathy is present, measuring 16 mm short axis on the right, and 14 mm short axis on the left. Skin and subcutaneous defect overlying the right proximal thigh laterally is present measuring 63 mm, with surrounding fat stranding. Bones: No suspicious bony lesions. No vertebral body compression fractures. IMPRESSION: 1. No evidence of abscess. Right proximal thigh wound with surrounding cellulitis. 2. Bilateral inguinal adenopathy, presumably reactive. 3. Splenomegaly. Dictated by: Minda Valentine M.D. on 11/26/2016 at 11:29 Approved by: Minda Valentine M.D. on 11/26/2016 at 11:32 PROCEDURE: CT UPPER EXTREMITY LT W CON INDICATIONS: abscesses TECHNIQUE: After the administration of intravenous contrast, 3 mm axial sections acquired of the left upper extremity, with coronal and sagittal reformats. For radiation dose reduction, the following was used: automated exposure control, adjustment of mA and/or kV according to patient size. COMPARISON: None. FINDINGS: Image quality: Excellent. Bones: No cortical thinning or periosteal reaction. No fracture or dislocation. Soft tissues: There is a rim-enhancing fluid collection which is intermediate density centrally which measures 3.8 x 1.9 x 8.1 cm. This abuts the lateral aspect of the left deltoid musculature. There is overlying subcutaneous edema. Just superior to this rim-enhancing fluid collection is a 7 mm diameter rim enhancing centrally intermediate density fluid collection with a punctate focus of gas present (series 4, image 18). A complex, enhancing fluid collection with a central focus of gas is present overlying the triceps. This measures 3.1 x 2.1 x 4.4 cm. There are multiple shotty left axillary lymph nodes, some of which are pathologically enlarged. IMPRESSION: 1. 3 discrete enhancing fluid collections, 2 of which contain punctate foci of gas. The superior collection measures less than 1 cm in diameter and is likely not amenable to her percutaneous drainage. The inferior collection has a complex appearance suggesting a phlegmon. The middle fluid collection overlying the deltoid musculature may be amenable to percutaneous drainage. 2. No findings to suggest osteomyelitis. 3. Axillary adenopathy, likely infectious in nature. These findings are concordant with the overnight interpretation. Dictated by: Ayana Bautista M.D. on 11/25/2016 at 7:34 Approved by: Ayana Bautista M.D. on 11/25/2016 at 7:40 Invasive Procedures PROGRESS NOTE PATIENT: SINTIA SALGADO : 1970 MR#: [id number] ADMIT: 11/25/2016 JOB ID: [id number] DATE: 12/01/2016 INFECTIOUS DISEASE FOLLOW UP NOTE: REASON FOR FOLLOWUP: Multiple abscesses both lower extremities as well as left deltoid. INTERVAL HISTORY: Yesterday, the patient was back to the operating room for drainage of a superior left deltoid abscess which had come up since his hospital admission. This was uneventful though the patient did have another triple lumen central venous catheter placed. This morning he reports pain at the site of his deltoid surgery but notes his thigh incisions are becoming gradually less painful. He has had no fevers or sweats, but did note a bit of a chill. No cough. No abdominal pain. The patient also tells me he wants to go home today. PHYSICAL EXAMINATION: Reveals an afebrile gentleman, temperature 36.7. His pulse in the 60s, respiratory rate 18, blood pressure 135/92. He is saturating well on room air and in no acute distress. Oral cavity negative. Lungs relatively clear. Cardiac tones without new murmur. Abdomen benign. The resident on surgery and I looked at his wounds. His thigh wounds appear to be healing well and without evidence of superinfection. His deltoid wound is packed but also appears free of residual infection. LABORATORIES: Include a white count of 11,000 today, postop day one. Creatinine 0.72. Procalcitonin remains less than 0.1. The patient's micro data is unchanged so far. We do have a Gram stain from the new deltoid abscess which shows many polys and some gram-positive cocci. The culture is not yet done but I suspect it will be Staph aureus, as all of our other four cultures had Staph aureus. IMPRESSION: This remains an absolutely bizarre case of a gentleman who is admitted on an ongoing basis with abscesses occurring around his upper thighs bilaterally and his left deltoid. The patient used to be a soft tissue heroin injector but says he has not done that for many months and yet continues to develop these abscesses in three locations each time. Once again, the predominant pathogen here is Staph aureus and I am inclined to continue our treatment with oral Zyvox. RECOMMENDATIONS: 1. The patient could be discharged at any time from an Infectious Disease point of view as long as good wound care is set up. Note that he lives in [facility] and usually gets his wound care in [place]. 2. I would complete a two week course of oral Zyvox. 3. ID will go ahead and sign off at this time. Juan Pablo Ziegler MD 12/01/16 0903 Stanislaw Dale MD. FLOOR COVERING PRINTER: None. ANESTHESIA: General. PREOPERATIVE DIAGNOSIS(ES): Multiple abscesses of the left deltoid, left hip, right hip, and right distal thigh. POSTOPERATIVE DIAGNOSIS(ES): Multiple abscesses of the left deltoid, left hip, right hip, and right distal thigh. PROCEDURE: Incision and drainage of left deltoid, left hip, right hip, and right distal thigh abscesses. INDICATION FOR PROCEDURE: The patient is a 45-year-old male with multiple subcutaneous abscesses. The patient has had multiple prior I and D's and history of MRSA. PRINCIPAL FINDING: The left deltoid incision was 9 cm in dimension, the left hip incision was in a cruciate fashion and measured 6 x 7 cm in dimension, the right hip incision was T-shaped and measured 6 x 9 cm in dimension and the right distal thigh incision was 6 cm. PROCEDURE COURSE: The patient was brought to the operating table and was provided with general anesthesia. The patient has already been receiving IV antibiotics and he was provided with SCDs. A time-out was performed. We started with the left side of his body. The patient's left deltoid and left hip region was exposed and prepped and draped in the usual sterile fashion. Using a syringe and an 18-gauge, we aspirated purulence out of the left deltoid subcutaneous abscess. A longitudinal incision was planned and local anesthetic was injected and an incision was made using the scalpel. The total incision was approximately 9 cm. We drained a large amount of pus and the entire abscess cavity was unroofed. There is no undrained abscesses with blunt probing by my finger or by a Clarissa clamp. Copious irrigation was carried out and the hemostasis within the abscess cavity was controlled using electrocautery. Next, we turned our attention to the left hip region. Again using a syringe and the needle, we aspirated pus directly over the most prominent position of the abscess. A longitudinal incision was planned. A local anesthetic was injected and then the incision was made using the scalpel. Once the abscess cavity was entered and identified, the cavity actually extended more medial lateral rather than cephalad and caudad. Therefore, a cruciate incision was added to help with maximal exposure of the abscess cavity. This left hip incision measured 6 cm x cm in dimension. The abscess cavity was irrigated out. Hemostasis was controlled using cautery. Both the left deltoid and the left hip abscess cavities were then subsequently packed with 2-inch Arben gauze in a wet-to-dry fashion. Next, we turned our attention to his right hip and his right distal thigh. The area was prepped and draped in the usual sterile fashion. Again using a syringe and 18-gauge needle, we aspirated pus very easily from the right hip abscess. There was actually two prominent visible bumps on the right hip. An incision that connected both visible bumps were then planned and local anesthetic was injected and an incision was made using the scalpel. Both abscesses were initially drained by the same incision, however, once I got into the more cephalad cavity, it actually showed cephalad extension. Therefore, a T-shaped incision was added to help maximal exposure of the cephalad abscess. This T-shaped incision measured 6 x 9 cm at the right hip. Abscess cavities were irrigated out and hemostasis was controlled. Next, we turned our attention to the right distal thigh abscess. Again using a needle and syringe, we aspirated pus very easily. A longitudinal incision was planned. Local anesthetic was injected and the incision was made using the scalpel. Subcutaneous abscess cavity was encountered and drained. The incision was 6 cm in dimension. This abscess was above the fascia and did not go beneath the fascia. Again, after copious irrigation, hemostasis was verified. Both the right hip and the right distal thigh wounds were packed with Arben in a wet-to-dry fashion. Sterile dressings were then placed on all four wounds. By the end of procedure, needle counts and sponge counts were correct. The patient was then extubated and taken to the recovery room in stable satisfactory condition. Stanislaw Dale MD 11/25/16 1448 Other Diagnostics DATE OF SURGERY: 11/30/2016 PREOPERATIVE DIAGNOSIS(ES): Left upper arm abscess. POSTOPERATIVE DIAGNOSIS(ES): Left upper arm abscess. PROCEDURE: Incision and drainage of left upper arm abscess. SURGEON: Chaz Cancino MD. DATE OF SURGERY: 11/25/2016 SURGEON: Stanislaw Dale MD. FLOOR COVERING PRINTER: None. ANESTHESIA: General. PREOPERATIVE DIAGNOSIS(ES): Multiple abscesses of the left deltoid, left hip, right hip, and right distal thigh. POSTOPERATIVE DIAGNOSIS(ES): Multiple abscesses of the left deltoid, left hip, right hip, and right distal thigh. PROCEDURE: Incision and drainage of left deltoid, left hip, right hip, and right distal thigh abscesses. Brief History Sintia Salgado is a 45 year old male with Hypothyroid, IV heroin abuse, MRSA and recurrent abscess presents to [facility] emergency department complaining of multiple abscesses that appeared approx. 2 days ago. The areas to his bilateral shoulders and left hip have become increasingly red and swollen. He also reported chills and feeling sick. Denies any fever. Patient reported this is similar to previous episodes of skin abscesses. He adamantly denies shooting any IV drugs. Patient reports taking Percocet with little relief. Patient has multiple admission of skin abscesses requiring I&D surgeries. Recent admission dated 10/24-10/27/16 reviewed: patient presented with multiple area of abscess on bilateral thigh, left upper arm in the setting of presumed active heroin use. CAT scan showed no evidence of fasciitis, underwent surgical I&D 10/24 extensively. Patient was started with meropenem and IV vancomycin, switched to daptomycin and ciprofloxacin per ID consult. Final wound culture showed streptococcus Angionosus, staph aureus, staph epididermis, all sensitive to Keflex, which will be continued for 14days Case discussed with Dr Brenner, he spoke to Dr Hoffmann from surgery who wanted to patient to be npo. Iv fluids and antibiotics initiated Hospital Course Sintia Salgado is a 45 year old male with Hypothyroid, IV heroin abuse, MRSA and recurrent abscess presents to [facility] emergency department complaining of multiple abscesses 1. Sepsis. Present on admission, resolved -Meeting criteria with tachycardia and Leukocytosis with skin infections as source. Lactic acid normal. source: abscess/cellulitis, 2.Acute Skin Abscesses, poa, improving -recurrent multiple skin abscess with cellulitis a/w IM heroin use although pt denied using it. last hospitalization last month, underwent surgical I&D 10/24 extensively. Patient was started with meropenem and IV vancomycin, switched to daptomycin and ciprofloxacin per ID consult. Final wound culture showed streptococcus Angionosus, staph aureus, staph epididermis, all sensitive to Keflex, plan was to continue for 14days. pt returned with same abscess again after he finished abx. -I&D in OR 11-26-16,, L deltoid, L hip, R hip, R distal thigh, -I&D left deltoid 12/01/16, cultures pending -cultures wound show strep, MSSA, enterococus, -discussed with Dr. Ziegler, continue PO zyvox 660 bid for 2 weeks, (start ). Patient has IV access now. No need to switch to IV per ID. Culture from left deltoid pending but probably same organism. adjust antibiotics if new organism identified -Discharge patient home, zyvox 600 bid until 12/13/16 -wound care [place] this coming Sunday 10 am 3. Acute Pain management, poa, active -continue dilaudid PO 8 q 4 hours prn -1 mg IV dilaudid only for dressing changes -appears well controlled today Discharge; patient say he only has 2 more morphine tablets, I gave him 5 more to make it until Sunday when his doctor is back he can call him for more 3 Hypothyroidism,poa, chronic -continuing Synthroid -TSH 5.98, continue Synthroid 4 Heroine Abuse,poa, chronic -appreciate ammonia worker to provide resources 5 Nicotine dependence, poa, active -Cessation discussed and encouraged, -Nicotine patch on request 6. Diabetes, new diagnosis -A1c 7.1 -Sliding-scale dvt ppx: HSQ q8h diet: general Discharge:this is a new diagnosis patient needs to see his doctor next week to review and possible start teatment Exam Vital Signs (Last) Date Time Temp Pulse Resp B/P Pulse Ox O2 Delivery O2 Flow Rate FiO2 12/03/16 05:20 37.0 66 16 110/70 96 Room Air 11/30/16 19:05 4 Test 11/25/16 02:00 11/26/16 23:20 11/27/16 05:20 11/28/16 05:00 Band Neutrophils % 1% (1-5) Lactic Acid Level 1.2mmol/L (0.4-2.0) Vancomycin Level Trough 9.0mcg/mL Phosphorus Level 4.2mg/dL (2.5-4.9) Magnesium Level 1.9mg/dL (1.6-2.6) Total Bilirubin 0.2mg/dL (0.0-1.2) Aspartate Amino Transf (AST/SGOT) 8U/L (0-50) Alanine Aminotransferase (ALT/SGPT) 5U/L (0-44) Alkaline Phosphatase 68U/L (25-150) Total Protein 5.6g/dL (6.4-8.4) Albumin 2.8g/dL (3.4-5.0) Urine Opiates Screen Negative Urine Methadone Screen Negative Urine Barbiturates Screen Negative Urine Amphetamines Screen Negative Urine Benzodiazepines Screen Negative Urine Cocaine Metabolite Screen Negative Urine Cannabinoids Screen Negative Test 11/28/16 05:30 12/01/16 05:20 12/02/16 04:15 Thyroid Stimulating Hormone (TSH) 5.980uIU/mL (0.450-4.500) Sodium Level 138mEq/L (134-144) Potassium Level 4.3mEq/L (3.5-5.2) Chloride Level 97mEq/L (97-108) Carbon Dioxide Level 24mmol/L (18-29) Blood Urea Nitrogen 14mg/dL (6-24) Creatinine 0.72mg/dL (0.76-1.27) Estimat Glomerular Filtration Rate 125mL/min (>59) Glucose Level 159mg/dL (60-99) Hemoglobin A1c 7.1% (4.8-5.6) Calcium Level 9.2mg/dL (8.5-10.1) Procalcitonin 0.07ng/mL (0.00-0.08) White Blood Count 10.6th/mm3 (3.8-10.1) Red Blood Count 3.89mil/mm3 (4.40-5.80) Hemoglobin 9.6g/dL (13.8-17.2) Hematocrit 30.8% (41.0-50.0) Mean Corpuscular Volume 79.2fL (81-100) Mean Corpuscular Hemoglobin 24.7pg (27.0-35.0) Mean Corpuscular Hemoglobin Concent 31.2% (32.0-37.0) Red Cell Distribution Width 16.6% (12.3-15.4) Platelet Count 249bil/L (150-400) Neutrophils (%) (Auto) 71.9% (40-74) Lymphocytes (%) (Auto) 18.8% (14-46) Monocytes (%) (Auto) 5.4% (4-12) Eosinophils (%) (Auto) 2.5% (0-5) Basophils (%) (Auto) 0.3% (0-3) Discharge Medications Discharge Medications Levothyroxine (Levothyroxine) 150 Mcg Tablet 150 MCG PO QAM (Reported) Linezolid (Zyvox) 600 Mg Tablet 600 MG PO BID Prescribed by: Daija MÁRQUEZ MD Morphine Sulfate ER (Morphine Sulfate ER) 100 Mg Tablet 100 MG PO BID Prescribed by: Daija MÁRQUEZ MD As needed Albuterol HFA (Proair HFA) 8.5 Gm Hfa.aer.ad 2 PUFFS INHALATION Q4H PRN PRN For Shortness of Breath (Reported) Hydrocodone-Acetaminophen 10-325 mg (Hydrocodone-Acetaminophen 10-325 mg) 1 Each Tablet 1 TABLET PO Q4H PRN PRN For Pain (Reported) Followup Plan Follow-up plan call your doctor s soon as possible for a follow up appointment Discharge Diet: Heart Healthy, Diabetic Discharge Activity: Limited until seen by PCP Time spent 35 minutes timew spent so far today discharging patent Daija Márquez MD December 03, 2016 14:49
--- NOTE | 2016-12-03 14:51 | PCM.DIMED ---
Discharge Instructions Date of Service December 03, 2016 Dates of Hospitalization November 25, 2016 at 04:19 Discharge Diagnosis Discharge Diagnosis 1. Sepsis. Present on admission, resolved 2.Acute Skin Abscesses, poa, improving 3 Hypothyroidism,poa, chronic 4 Heroine Abuse,poa, chronic 5 Nicotine dependence, poa, active Patient Instructions Follow-up plan Please call your doctor as soon as possible for an appointment. Wound care appointment here 10 am Wed. Daija Márquez MD December 03, 2016 14:51
[2016-12-03] MEDS ORDERED: MORP100T36 PO (14:52)
[2016-12-03] MEDS ORDERED: LINE600T2 PO (14:52)
--- NOTE | 2016-12-03 15:08 | NUR ---
Social Work- Discharge Data: EMR reviewed. Pt is on day 8 of hospitalization for multiple deep tissue abscesses. Pt to discharge today, orders are in. CA[employer] DRAFTER spoke with Marci at [facility] transportation regarding pt's transportation home. [facility] declined eligibility of pt as [facility] was pt hospital choice rather than medical necessity. CASTINGS DRAFTER explained this to pt, pt agreeable. Pt to have drain removed prior to discharge, then coordinate transportation via family/friends POV. informed CASTINGS DRAFTER that pt has wound care follow up on Wednesday 12/06 at 10 am. All updated and agreeable to plan. Pt to discharge home via POV, no discharge needs identified. Assessment: Pt who is independent at baseline. Plan: Pt to discharge today. Pt to discharge home via POV, no discharge needs identified. PAULA Schwab
--- NOTE | 2016-12-03 16:17 | NUR ---
Discharge Received discharge orders from Dr. Lindquist. Reviewed discharge paper work, discharge instructions, and 2 new prescriptions signed by doctor and understood discharge paper work and signed paper work. IJ to right neck was removed by IV therapy per orders. No sign and symptoms of pain noted and PRN Dilaudid was given as ordered with effective results. patient calling friend for a ride. awaiting ride a this time. Belonging with patient. Wound care/dressing change done this shift. Educated patient wound care with return demonstration and understood. Dressing supplies given for wound care until next appointment at [facility] on Sunday at 10AM. patient left unit via walk with friend.
== END 2016-12-03 16:00 | disposition home or self-care (01) | DRG 872 ==
LOC: SED 23:22 → MPC 11-25 04:19 → OSC 12-01 23:02
PROVIDERS: ADMIT Hospitalist; ATTEND Hospitalist
PROC: 0J9L3ZZ Drainage of Right Upper Leg Subcutaneous Tissue and Fascia, Percutaneous Approach (ICD-10-PCS; 2016-11-25)
PROC: 0J9F3ZZ Drainage of Left Upper Arm Subcutaneous Tissue and Fascia, Percutaneous Approach (ICD-10-PCS; 2016-11-25)
PROC: 0J9M3ZZ Drainage of Left Upper Leg Subcutaneous Tissue and Fascia, Percutaneous Approach (ICD-10-PCS; principal; 2016-11-25 12:00)
PROC: 0H9CXZZ Drainage of Left Upper Arm Skin, External Approach (ICD-10-PCS; 2016-11-30)
DX: A41.9 Sepsis, unspecified organism (principal); L02.416 Cutaneous abscess of left lower limb; L02.414 Cutaneous abscess of left upper limb; L02.415 Cutaneous abscess of right lower limb; L03.116 Cellulitis of left lower limb; L03.115 Cellulitis of right lower limb; E03.9 Hypothyroidism, unspecified; F17.210 Nicotine dependence, cigarettes, uncomplicated; I10 Essential (primary) hypertension; F11.10 Opioid abuse, uncomplicated; G89.4 Chronic pain syndrome; B95.61 Methicillin susceptible Staphylococcus aureus infection as the cause of diseases classified elsewhere; B95.4 Other streptococcus as the cause of diseases classified elsewhere

== ENCOUNTER 2017-01-20 19:33 | Emergency (ER) | payer MEDICARE, MEDICAID ==
[~2017-01-20] VITALS: Ht 177.8 cm; Wt 94.5 kg
[~2017-01-20 19:33] MED LIST changes: -AMLO5TAB2 PO; -CEPH-512 PO; +LINE600T2 PO
[2017-01-20 19:36] VITALS: BP 140/74; PULSE 114; RESP 20; O2SAT 100
--- NOTE | 2017-01-20 21:17 | ED.REPORT ---
HPI-Rash / Abscess Date of Service Jan 20, 2017 ED Provider: Alexi Brenner Pt is a 46 year old male with a history of DM, HTN, recurring abscesses, and IV drug use who presents to the ED complaining of recurring left deltoid abscess. He c/o associated lethargy, confusion, extremity pain, and an abscess on his right deltoid. Pt reports that he had an abscess in his nose 4 days ago. He denies any other symptoms, as well as a history of heart infections. Pt reports that he has not used heroin in 2 years. He also reports that he had surgery 2 months ago. The pt "was changing the dressing on Sunday and saw a hole on the back of his triceps." He reports that he is currently living in a trailer in [place]. Nursing Notes Stated Complaint: RECURRING ABSCESS Chief Complaint: Skin Rash/Abscess Nursing Notes Reviewed: Yes Allergies: Coded Allergies: Sulfa (Sulfonamide Antibiotics) (Verified Allergy, Intermediate, Rash, 03/31) STATES BLISTERS ON PENIS codeine (Verified Allergy, Mild, Rash,Itching,, 03/31/16) penicillin G (Verified Allergy, Unknown, Rash, 03/31/16) IN HIS YOUTH dalbavancin (Verified Adverse Reaction, Intermediate, Severe muscle spasms required discontinuation of infusion., 04/30/16) erythromycin base (Verified Adverse Reaction, Mild, Nausea, 03/31/16) metronidazole (Verified Adverse Reaction, Mild, 11/27/16) Pt refused, "It tears my stomach up". Scheduled Levothyroxine (Levothyroxine) 150 Mcg Tablet 150 MCG PO QAM Linezolid (Zyvox) 600 Mg Tablet 600 MG PO BID Morphine Sulfate ER (Morphine Sulfate ER) 100 Mg Tablet 100 MG PO BID Scheduled PRN Albuterol HFA (Proair HFA) 8.5 Gm Hfa.aer.ad 2 PUFFS INHALATION Q4H PRN PRN For Shortness of Breath Hydrocodone-Acetaminophen 10-325 mg (Hydrocodone-Acetaminophen 10-325 mg) 1 Each Tablet 1 TABLET PO Q4H PRN PRN For Pain General Time Seen by MD: 21:16 Chief Complaint Abscess Hx Obtained From: Patient Arrived By: Walk-in Onset Occurred: Onset unknown Symptom Duration: Since onset Quality: Painful Severity: Current: Moderate Severity: Maximum: Moderate Recent Healthcare: Recent doctor visit, Recent hospitalization Similar Sx Previous: Yes Past Medical History Past Medical History Hx IV drug use. Last use Dec 18 2015 Hypothyroid per patient- currently not receiving medication MSRA Hypertension Recurring abscesses Reports: Diabetes mellitus Past Surgical History Abscess I&D in OR Reports: Tonsillectomy Smoking History Current Every Day Smoker Social History Alcohol Use: Denies alcohol use Drug Use: Denies drug use Other Social History: Poor social support, Local resident Ambulatory Status Independent Review of Systems Constitutional: Reports: Lethargy, Denies: Fever Respiratory: Denies: Non-productive cough Musculoskeletal: Reports: Extremity pain Skin: Reports Swelling Complete sys rev & neg: except as marked. Neurologic: Reports: Confusion Physical Exam Initial Vital Signs Vital Signs (First) Date Time Temp Pulse Resp B/P Pulse Ox O2 Delivery O2 Flow Rate FiO2 01/20/17 19:36 37 114 20 140/74 100 Room Air Initial VS: Reviewed Head / Eyes: Atraumatic, Normocephalic Neck: Supple, Full range of motion Abdomen / GI: Soft, Non-tender Extremities: Vascular intact, Neuro intact Neurologic: Alert, Oriented, Nonfocal Psychiatric: Mood/affect normal, Behavior normal General/Constitutional: Awake, Alert, Cooperative Skin: Warm, Dry Multiple open sores, abscesses, and healed surgical sites. Multiple areas of cellulitis; bilateral areas on hips, thighs, deltoids, and triceps. Respiratory / Chest: Atraumatic, Breath sounds NL, Breath sounds = bilat Chest wall is non-tender Cardiovascular: Heart rate NL, Regular rhythm, Heart sounds NL, No murmurs Heart Rate / Rhythm: Negative: Tachycardia Interpretation & Diagnostics CT pelvis w/o IV contrast: IMPRESSION: There is phlegmon within the subcutaneous fat and muscle of the right mid lateral thigh no drainable fluid collection is identified. There is also phlegmon in the subcutaneous fat of the left lateral thigh extending into the adjacent muscles. There are several tiny fluid collections the largest of which measures 1.8 cm in greatest dimension. Transmitted to the ED at 01:31 by [address]an M[address]. CT right shoulder and humerus IMPRESSION: Inflammatory changes in the subcutaneous fat and adjacent musculature along the course of the humerus consistent with the patient's history of IV drug abuse. No abscess. Transmitted to the ED at 02:56 by John Adan M.D. CT left shoulder: IMPRESSION: Inflammatory changes with diffuse edema and fluid extending from the humeral head inferiorly to the elvel of the distal humerus. No evidence of abscess collection. Transmitted to the ED at 04:09 by John Adan M.D. Lab Results Interpretation Result Diagram: 01/20/17 2300 01/20/17 2300 Test 01/20/17 23:00 01/20/17 23:35 01/21/17 04:10 White Blood Count 15.4th/mm3 (3.8-10.1) Red Blood Count 3.87mil/mm3 (4.40-5.80) Hemoglobin 9.2g/dL (13.8-17.2) Hematocrit 29.9% (41.0-50.0) Mean Corpuscular Volume 77.3fL (81-100) Mean Corpuscular Hemoglobin 23.8pg (27.0-35.0) Mean Corpuscular Hemoglobin Concent 30.8% (32.0-37.0) Red Cell Distribution Width 16.1% (12.3-15.4) Platelet Count 258bil/L (150-400) Neutrophils (%) (Auto) 81.3% (40-74) Lymphocytes (%) (Auto) 11.2% (14-46) Monocytes (%) (Auto) 4.9% (4-12) Eosinophils (%) (Auto) 1.7% (0-5) Basophils (%) (Auto) 0.3% (0-3) Band Neutrophils % 1% (1-5) Sodium Level 134mEq/L (134-144) Potassium Level 4.1mEq/L (3.5-5.2) Chloride Level 94mEq/L (97-108) Carbon Dioxide Level 25mmol/L (18-29) Blood Urea Nitrogen 9mg/dL (6-24) Creatinine 0.66mg/dL (0.76-1.27) Estimat Glomerular Filtration Rate 138mL/min (>59) Glucose Level 112mg/dL (60-99) Lactic Acid Level 2.1mmol/L (0.4-2.0) Calcium Level 9.3mg/dL (8.5-10.1) Magnesium Level 2.0mg/dL (1.6-2.6) Total Bilirubin 0.3mg/dL (0.0-1.2) Aspartate Amino Transf (AST/SGOT) 9U/L (0-50) Alanine Aminotransferase (ALT/SGPT) 5U/L (0-44) Alkaline Phosphatase 93U/L (25-150) Total Protein 7.7g/dL (6.4-8.4) Albumin 3.3g/dL (3.4-5.0) Hold Purple Top Tube Received (Received) Hold Blue Top Tube Received (Received) Hold [place] Top Tube Received (Received) Hold [place] Top Tube Received (Received) Hold Urine Received (Received) Procedures Incision & Drainage Abscess Time: 04:36 Procedure Performed by: ED physician Consent / Setup / Site Prep: Informed consent provided, Consent from patient , Time-out performed, Hand hygiene observed, Stand sterile technique, Standard surgical scrub, Sterile drapes applied Location of Abscess: Left thigh Skin Preparation Agent: Betadine Local Anesthesia: Lidocaine w epi 1% Incised Abscess with Scalpel: #11 Pus Drained: Small, Purulent discharge Irrigation: Yes Post-Procedure / Complications: Packing placed, Drain placed, Culture obtained, Gram stain ordered, Dressing applied, No complications, Condition improved, Tolerated procedure well, Patient stable Re-Eval/Medical Decision Med Decision/Clinical Course Patient with multiple abscesses and ReVia's I&D's and major surgeries. He presents now with increasing swelling and pain. He has several hot spots but on CT scan there are no large abscesses. A small abscess on the left thigh was drained and he was placed on antibiotics for the areas of cellulitis. It is recommended that he follow up with Dr. Ziegler. Source of Hx: Old records Re-Evaluation/Progress #1: Time of Eval: 03:12 Re-Evaluation/Progress Note: Pt rechecked. Informed pt of plan for discharge. Pt understands and agrees with plan for discharge. F/U instructions and RTER warnings given. All questions addressed. Re-Evaluation/Progress #2: Time of Eval: 04:35 Re-Evaluation/Progress Note: Pt rechecked. Drained abscess with pt's consent. All questions were answered. Re-Evaluation/Progress #3: Time of Eval: 05:35 Patient Status: Condition improved Re-Evaluation/Progress Note: Pt rechecked. Informed pt of plan for discharge. Pt understands and agrees with plan for discharge. F/U instructions and RTER warnings given. All questions addressed. Counseled Regarding: Diagnosis, Lab results, Need for follow-up, When/why to return to ED Discharge & Departure Impression: Primary Impression: Abscess of multiple sites Additional Impression: Cellulitis of multiple sites Disposition: Home Discharge Condition All VS Reviewed: Yes Condition: Stable Patient Instructions: Abscess Incision and Drainage (DC) Additional Instructions: Clindamycin 300 mg 3 times a day, #30 dispensed. Warm compresses. Follow-up with Dr. Ziegler and with [facility] for further evaluation and treatment. Referrals: Collin Garcia MD (PCP) Scribe Attestation Portions of this note were transcribed by Rivka Negron. I, Dr. Brenner personally performed the history, physical exam and medical decision-making; I reviewed and confirmed the accuracy of the information in the transcribed note. Signed by: Cesar Simpson, 01/20/17 and 22:30. copies to: Collin Garcia MD, Howard L MD Jan 20, 2017 21:17 Rivka Sharma Jan 20, 2017 21:28
[2017-01-20] MEDS ORDERED: 0.9% Sodium Chloride 1,000 ML IV ONE (21:33)
[2017-01-20 23:31] LABS: BASOPHILS % (AUTO) 0.3 % (0-3); EOSINOPHILS % (AUTO) 1.7 % (0-5); MONOCYTES % (AUTO) 4.9 % (4-12); Mean Corpuscular Hemoglobin 23.8 pg (27.0-35.0); Mean Corpuscular Volume 77.3 fL (81-100); NEUTROPHILS % (AUTO) 81.3 % (40-74); Platelet Count 258 bil/L (150-400)
[2017-01-21] MEDS ORDERED: Lidocaine 1%/Epi 1:100,000 30 mL MDV ONE (03:20)
[2017-01-21 06:30] VITALS: BP 133/77; PULSE 101; RESP 18; O2SAT 100
[2017-01-21] MEDS ORDERED: _Clindamycin 150 mg Capsule PO SCH (06:30)
--- NOTE | 2017-01-21 09:02 | DRSVH ---
PROCEDURE: CT UPPER EXTREMITY RT WO CON INDICATIONS: ABCESS COMPARISON: None. FINDINGS: Study is compromised by absence of intravenous contrast. Reportedly this is due to the ab sence of intravenous access. There is inflammatory change within the lateral musculature along the m id arm adjacent to the humerus which shows no sign of osteomyelitis or trauma. There is what appears to be an intravenous line but not clearly within the vein, and a small amount of high density materi al immediately adjacent suggests a small amount of contrast was attempted to be injected but extravas ated. There is an increased number of small nodes within the superior axilla, likely reactive in thi s clinical circumstance. IMPRESSION: Soft tissue inflammatory change, suspect extravasation a very small amount of injected i ntravenous contrast. No definite abscess found. MR scanning may be warranted which provides a great er degree of potential for identifying a drainable abscess formation if intravenous contrast cannot b e administered. Dictated by: Arjun Carrasco M.D. on 01/21/2017 at 8:56 Approved by: Arjun Carrasco M.D. on 01/21/2017 at 9:00
--- NOTE | 2017-01-21 09:12 | DRSVH ---
PROCEDURE: CT UPPER EXTREMITY LT WO CON INDICATIONS: ABBCESS COMPARISON: [facility], CT, CT UPPER EXTREMITY RT WO CON, 01/21/2017, 0:43. FINDINGS: Axial noncontrast scanning through the left shoulder was performed, similar to that perfor med on the right. There several gas bubbles within the indistinctly marginated musculature lateral t o the humeral head and also more inferiorly there is a cutaneous defect at approximately the middle t hird of the left arm, containing gas, but measuring only 7 x 8 mm in diameter. Indistinct marginatio n of the musculature margins extends to the elbow level, tapering inferiorly. IMPRESSION: Left lateral arm indistinct margination from lateral to the humeral head to lateral to t he elbow region, with 2 separate areas of gas involving the soft tissues as discussed above, small in quantity, and it is unclear whether this would represent recent surgical probing of the soft tissues or gas-forming organism. No underlying foreign body seen nor is there evidence of underlying osteom yelitis. Intravenous contrast CT or MR scanning would provide improved visualization bilaterally. Dictated by: Arjun Carrasco M.D. on 01/21/2017 at 9:07 Approved by: Arjun Carrasco M.D. on 01/21/2017 at 9:10
--- NOTE | 2017-01-30 15:03 | DRSVH ---
CORRECTED ACCESSION/PLACER NUMBER ON 01/30/17 PROCEDURE: CT PELVIS WITHOUT CONTRAST ([id number]) INDICATIONS: multiple abscesses B upper arms, B hips TECHNIQUE: Noncontrast 3 mm axial sections acquired through the bony pelvis, with coronal and sagittal reformatt ing. COMPARISON: None. FINDINGS: Image quality: Excellent. Bones: No osteomyelitis Soft tissues: Bilateral lateral hip and thigh cutaneous and subcutaneous thickening and edema. There is a single focus of gas bubble in the subcutaneous fat lateral to the right hip. The inflammatory changes are greater on the right than the left. No definite drainable fluid collection is seen. IMPRESSION: Bilateral cellulitis, right greater than left, with a single focus of gas in the subcutan eous fat lateral to the right hip. MR scanning would provide better assessment than CT scanning for presence or absence of drainable abscess if intravenous access cannot be acquired for contrast enhanc ed CT scanning. Dictated by: Arjun Carrasco M.D. on 01/21/2017 at 9:44 Approved by: Arjun Carrasco M.D. on 01/21/2017 at 9:46
== END 2017-01-21 06:31 | disposition home or self-care (01) ==
LOC: SED 19:33
DX: M71.012 Abscess of bursa, left shoulder (principal); M71.011 Abscess of bursa, right shoulder; L03.115 Cellulitis of right lower limb; L03.116 Cellulitis of left lower limb; L03.113 Cellulitis of right upper limb; L03.114 Cellulitis of left upper limb; E11.9 Type 2 diabetes mellitus without complications; I10 Essential (primary) hypertension; F15.10 Other stimulant abuse, uncomplicated; F11.10 Opioid abuse, uncomplicated; F17.200 Nicotine dependence, unspecified, uncomplicated; Z86.14 Personal history of Methicillin resistant Staphylococcus aureus infection; Z79.51 Long term (current) use of inhaled steroids; Z88.2 Allergy status to sulfonamides; Z88.5 Allergy status to narcotic agent; Z88.1 Allergy status to other antibiotic agents; Z88.8 Allergy status to other drugs, medicaments and biological substances
CPT/HCPCS: 10061; 36415; 72192; 73200; 73202; 80053; 83605; 83735; 85025; 96360; 99285; J7030